=== PATIENT | female | born 1955 | race Caucasian/White ===

== ENCOUNTER 2020-01-18 21:23 | Inpatient (IN) | payer MEDICARE, OTHER ==
[2020-01-18] MEDS ORDERED: PANTOPRAZOLE 40 MG/10 ML VIAL IVP STA (21:41)
[2020-01-18] MEDS ORDERED: SODIUM CHLORIDE 0.9% 500 ML 500 ML IV STA (21:41)
[2020-01-18 21:49] LABS: Anisocytosis Slight; Basophils # (A) 0.1 k/uL (0-0.2); Basophils % (A) 1 %; Eosinophils # (A) 0.3 k/uL (0-0.7); Eosinophils % (A) 4 %; HGB 11.9 gm/dL (11.4-16.0); Hypochromasia Marked; Lymphocytes # (A) 1.2 k/uL (1.0-4.8); Lymphocytes % (A) 16 %; MCH 25.5 pg (25.0-35.0); MCHC 29.6 g/dL (31.0-37.0); MCV 85.9 fL (80.0-100.0); Mean Platelet Volume 8.6; Monocytes # (A) 0.5 k/uL (0-1.0); Monocytes % (A) 7 %; Neutrophils # (A) 5.1 k/uL (1.3-7.7); Neutrophils % (A) 69 %; Platelet Count 264 k/uL (150-450); RBC 4.66 m/uL (3.80-5.40); RDW 18.1 % (11.5-15.5); WBC 7.4 k/uL (3.8-10.6)
[2020-01-18 21:59] LABS: INR 1.3 (<1.2); Partial Thromboplastin Time 24.3 sec (22.0-30.0); Prothrombin Time 12.7 sec (9.0-12.0)
[2020-01-18 22:00] LABS: ALT 13 U/L (4-34); AST 29 U/L (14-36); African American GFR (CKD) >90 (>60 ml/min/1.73 sqM); Albumin 3.3 g/dL (3.5-5.0); Alkaline Phosphatase 91 U/L (38-126); Anion Gap 6 mmol/L; Blood Urea Nitrogen 18 mg/dL (7-17); Calcium 8.7 mg/dL (8.4-10.2); Carbon Dioxide 28 mmol/L (22-30); Chloride 104 mmol/L (98-107); Glucose 115 mg/dL (74-99); Lipase 189 U/L (23-300); Non-African American GFR(CKD) 89 (>60 ml/min/1.73 sqM); Potassium 3.8 mmol/L (3.5-5.1); Sodium 138 mmol/L (137-145); Total Bilirubin 2.1 mg/dL (0.2-1.3); Total Protein 6.4 g/dL (6.3-8.2)
--- NOTE | 2020-01-18 22:04 | ED ---
GI Bleed HPI - General Chief complaint: GI Bleed Stated complaint: GI Bleed Source: EMS Mode of arrival: EMS Limitations: no limitations - History of Present Illness Initial comments: Patient is a 64 year old female past history of atrial for ablation of presents to the emergency department with reported GI bleed. Patient states that around 7 PM tonight she began having sudden onset of bright red blood per rectum. It was so significant that she was unable to get up off the toilet. No history of similar in the past. Denies any abdominal pain or rectal pain. No recent fe vers or chills. She denies melanic stools. No nausea, vomiting or hematemesis. Denies history of previous peptic ulcer disease. Reports that she did have a colonoscopy greater than 5 years ago which was abnormal. She was told to follow up every several years to have repeat colonoscopy however she reports that she never followed up with care. She takes a baby aspirin for anticoagulation. She denies any chest pain or shortness of breath. No change in bladder habits. No other alleviating, Percepting or modifying factors - Related Data Home Medications Medication Instructions Recorded Confirmed Aspirin EC [Ecotrin Low Dose] 81 mg PO HS 01/18/20 01/18/20 Furosemide [Lasix] 60 mg PO DAILY 01/18/20 01/18/20 Metoprolol Succinate [Toprol XL] 25 mg PO W/SUPPER 01/18/20 01/18/20 lisinopriL 20 mg PO DAILY 01/18/20 01/18/20 Allergies Allergy/AdvReac Type Severity Reaction Status Date / Time codeine Allergy Rash/Hives Verified 01/18/20 23:04 erythromycin base Allergy Rash/Hives Verified 01/18/20 23:04 Sulfa (Sulfonamide Allergy Itching Verified 01/18/20 23:04 Antibiotics) Review of Systems ROS Statement: Those systems with pertinent positive or pertinent negative responses have been documented in the HPI. ROS Other: All systems not noted in ROS Statement are negative. Past Medical History Past Medical History: Atrial Fibrillation, Heart Failure History of Any Multi-Drug Resistant Organisms: None Reported Past Surgical History: Section Additional Past Surgical History / Comment(s): D&C Past Psychological History: No Psychological Hx Reported Smoking Status: Never smoker Past Alcohol Use History: None Reported Past Drug Use History: None Reported General Exam Limitations: no limitations Course Vital Signs 0801/18/20 01/18/20 21:24 22:48 23:25 Temperature 98.3 F 97.3 F L Pulse Rate 52 L 118 H 106 H Respiratory 18 18 20 Rate Blood Pressure 121/82 96/53 91/68 O2 Sat by Pulse 100 100 Oximetry 01/18/20 01/18/20 23:35 23:55 Temperature 98 F 98 F Pulse Rate 120 H 120 H Respiratory 18 18 Rate Blood Pressure 87/61 102/70 O2 Sat by Pulse 100 Oximetry - Reevaluation(s) Reevaluation #1: Spoke with Dr. Nieves who agreed to admit the patient the ICU 01/18/20 22:15 Reevaluation #2: The case with Dr. Del Castillo in regards to her active GI bleed 01/18/20 23:04 Reevaluation #3: 01/19/20 00:[address] Del Castillo in regards to the patient's heavy rectal bleeding. Dr. Del Castillo recommends blood transfusion as necessary to maintain stable blood pressure. Blood pressure improved after 1 unit PRBC. I did order a second unit at this time. Medical Decision Making - Medical Decision Making Upon arrival the patient is placed in room 3. A thorough history and physical exam was performed. I did perform a rectal exam on the patient which does demonstrate multiple nonthrombosed hemorrhoids. None or active bleeding. Rectal exam demonstrates positive rectal tone. The patient has a continuous stream of bright red blood coming from her rectum. Laboratory studies were conducted. It does demonstrate a hemoglobin of 11.9. I did recommend hospital admission for which patient did agree to. I discussed case with Dr. garvey who did agree to admit the patient to the ICU. I also discussed the case with Sudha from [facility]. I will trend the patient's troponins every 6 hours. Consult was placed for GI. Patient was given a dose of Protonix and will remain nothing by mouth. Patient agreed to the treatment plan and is awaiting transfer to the floor - Lab Data Result diagrams: 01/24/20 07:30 01/24/20 07:30 Lab Results 01/18/20 01/18/20 01/18/20 Range/Units 21:00 21:30 21:30 WBC 7.4 (3.8-10.6) k/uL RBC 4.66 (3.80-5.40) m/uL Hgb 11.9 (11.4-16.0) gm/dL Hct 40.0 (34.0-46.0) % MCV 85.9 (80.0-100.0) fL MCH 25.5 (25.0-35.0) pg MCHC 29.6 L (31.0-37.0) g/dL RDW 18.1 H (11.5-15.5) % Plt Count 264 (150-450) k/uL Neutrophils % 69 % Lymphocytes % 16 % Monocytes % 7 % Eosinophils % 4 % Basophils % 1 % Neutrophils # 5.1 (1.3-7.7) k/uL Lymphocytes # 1.2 (1.0-4.8) k/uL Monocytes # 0.5 (0-1.0) k/uL Eosinophils # 0.3 (0-0.7) k/uL Basophils # 0.1 (0-0.2) k/uL Hypochromasia Marked Anisocytosis Slight PT 12.7 H (9.0-12.0) sec INR 1.3 H (<1.2) APTT 24.3 (22.0-30.0) sec Sodium (137-145) mmol/L Potassium (3.5-5.1) mmol/L Chloride (98-107) mmol/L Carbon Dioxide (22-30) mmol/L Anion Gap mmol/L BUN (7-17) mg/dL Creatinine (0.52-1.04) mg/dL Est GFR (CKD-EPI)AfAm (>60 ml/min/1.73 sqM) Est GFR (CKD-EPI)NonAf (>60 ml/min/1.73 sqM) Glucose (74-99) mg/dL Plasma Lactic Acid Yang (0.7-2.0) mmol/L Calcium (8.4-10.2) mg/dL Magnesium (1.6-2.3) mg/dL Total Bilirubin (0.2-1.3) mg/dL AST (14-36) U/L ALT (4-34) U/L Alkaline Phosphatase (38-126) U/L Troponin I (0.000-0.034) ng/mL Total Protein (6.3-8.2) g/dL Albumin (3.5-5.0) g/dL Lipase (23-300) U/L Stool Occult Blood Positive H (Negative) Blood Type Blood Type Confirm Blood Type Recheck Bld Type Recheck Status Antibody Screen Crossmatch Spec Expiration Date 01/18/20 01/18/20 01/18/20 Range/Units 21:30 21:30 21:30 WBC (3.8-10.6) k/uL RBC (3.80-5.40) m/uL Hgb (11.4-16.0) gm/dL Hct (34.0-46.0) % MCV (80.0-100.0) fL MCH (25.0-35.0) pg MCHC (31.0-37.0) g/dL RDW (11.5-15.5) % Plt Count (150-450) k/uL Neutrophils % % Lymphocytes % % Monocytes % % Eosinophils % % Basophils % % Neutrophils # (1.3-7.7) k/uL Lymphocytes # (1.0-4.8) k/uL Monocytes # (0-1.0) k/uL Eosinophils # (0-0.7) k/uL Basophils # (0-0.2) k/uL Hypochromasia Anisocytosis PT (9.0-12.0) sec INR (<1.2) APTT (22.0-30.0) sec Sodium 138 (137-145) mmol/L Potassium 3.8 (3.5-5.1) mmol/L Chloride 104 (98-107) mmol/L Carbon Dioxide 28 (22-30) mmol/L Anion Gap 6 mmol/L BUN 18 H (7-17) mg/dL Creatinine 0.71 (0.52-1.04) mg/dL Est GFR (CKD-EPI)AfAm >90 (>60 ml/min/1.73 sqM) Est GFR (CKD-EPI)NonAf 89 (>60 ml/min/1.73 sqM) Glucose 115 H (74-99) mg/dL Plasma Lactic Acid Yang 1.6 (0.7-2.0) mmol/L Calcium 8.7 (8.4-10.2) mg/dL Magnesium 2.0 (1.6-2.3) mg/dL Total Bilirubin 2.1 H (0.2-1.3) mg/dL AST 29 (14-36) U/L ALT 13 (4-34) U/L Alkaline Phosphatase 91 (38-126) U/L Troponin I 0.025 (0.000-0.034) ng/mL Total Protein 6.4 (6.3-8.2) g/dL Albumin 3.3 L (3.5-5.0) g/dL Lipase 189 (23-300) U/L Stool Occult Blood (Negative) Blood Type Blood Type Confirm Blood Type Recheck Bld Type Recheck Status Antibody Screen Crossmatch Spec Expiration Date 01/18/20 01/18/20 Range/Units 21:30 22:20 WBC (3.8-10.6) k/uL RBC (3.80-5.40) m/uL Hgb (11.4-16.0) gm/dL Hct (34.0-46.0) % MCV (80.0-100.0) fL MCH (25.0-35.0) pg MCHC (31.0-37.0) g/dL RDW (11.5-15.5) % Plt Count (150-450) k/uL Neutrophils % % Lymphocytes % % Monocytes % % Eosinophils % % Basophils % % Neutrophils # (1.3-7.7) k/uL Lymphocytes # (1.0-4.8) k/uL Monocytes # (0-1.0) k/uL Eosinophils # (0-0.7) k/uL Basophils # (0-0.2) k/uL Hypochromasia Anisocytosis PT (9.0-12.0) sec INR (<1.2) APTT (22.0-30.0) sec Sodium (137-145) mmol/L Potassium (3.5-5.1) mmol/L Chloride (98-107) mmol/L Carbon Dioxide (22-30) mmol/L Anion Gap mmol/L BUN (7-17) mg/dL Creatinine (0.52-1.04) mg/dL Est GFR (CKD-EPI)AfAm (>60 ml/min/1.73 sqM) Est GFR (CKD-EPI)NonAf (>60 ml/min/1.73 sqM) Glucose (74-99) mg/dL Plasma Lactic Acid Yang (0.7-2.0) mmol/L Calcium (8.4-10.2) mg/dL Magnesium (1.6-2.3) mg/dL Total Bilirubin (0.2-1.3) mg/dL AST (14-36) U/L ALT (4-34) U/L Alkaline Phosphatase (38-126) U/L Troponin I (0.000-0.034) ng/mL Total Protein (6.3-8.2) g/dL Albumin (3.5-5.0) g/dL Lipase (23-300) U/L Stool Occult Blood (Negative) Blood Type A Positive Blood Type Confirm A Positive Blood Type Recheck No Previous Record Bld Type Recheck Status CABO Indicated Antibody Screen NEGATIVE Crossmatch See Detail Spec Expiration Date 01/21/20202329 - EKG Data EKG Comments: EKG demonstrates atrial fibrillation with a rate of 126. QRS 106. QTC of 498. PVCs present. No acute ST segment elevation or depression. Significant baseline artifact Critical Care Time Critical Care Time: 50 minutes for multiple re-evaluations, close monitoring of patients vitals, transfusion of 2 units PRBC when patients blood pressure dropped. I also discussed the patients care with multiple specialists. Disposition Clinical Impression: Hematochezia, Afib, Hypotension Disposition: ADMITTED IP TO THIS HOSP Condition: Serious Is patient prescribed a controlled substance at d/c from ED?: No Decision to Admit Reason: Admit from EC Decision Date: 01/18/20 Decision Time: 22:37
[2020-01-18] MEDS ORDERED: NALOXONE 0.4 MG/ML 1 ML VIAL IV PRN (22:25)
[2020-01-18] MEDS ORDERED: SODIUM CHLORIDE 0.9% 500 ML 500 ML IV ONE (23:06)
[2020-01-19 00:18] LABS: Glucose,Whole Blood 105 mg/dL (75-99)
[2020-01-19 02:22] LABS: Anisocytosis Slight; Basophils # (A) 0.1 k/uL (0-0.2); Basophils % (A) 1 %; Eosinophils # (A) 0.1 k/uL (0-0.7); Eosinophils % (A) 2 %; HCT 34.7 % (34.0-46.0); HGB 10.6 gm/dL (11.4-16.0); Hypochromasia Marked; Lymphocytes # (A) 0.8 k/uL (1.0-4.8); Lymphocytes % (A) 10 %; MCH 26.8 pg (25.0-35.0); MCHC 30.5 g/dL (31.0-37.0); MCV 87.8 fL (80.0-100.0); Mean Platelet Volume 8.8; Monocytes # (A) 0.4 k/uL (0-1.0); Monocytes % (A) 5 %; Neutrophils # (A) 6.5 k/uL (1.3-7.7); Neutrophils % (A) 80 %; Platelet Count 231 k/uL (150-450); Poikilocytosis Slight; RBC 3.95 m/uL (3.80-5.40); RDW 17.6 % (11.5-15.5); WBC 8.2 k/uL (3.8-10.6)
[2020-01-19] MEDS: SODIUM CHLORIDE 0.9% 1,000 ML IV SCH ×3 (03:30→23:14)
[2020-01-19 05:49] LABS: Anisocytosis Slight; HCT 32.6 % (34.0-46.0); HGB 10.1 gm/dL (11.4-16.0); Hypochromasia Marked; MCH 27.2 pg (25.0-35.0); MCV 87.8 fL (80.0-100.0); Mean Platelet Volume 8.6; Platelet Count 208 k/uL (150-450); Poikilocytosis Slight; RBC 3.72 m/uL (3.80-5.40); RDW 17.6 % (11.5-15.5)
[2020-01-19 06:06] LABS: African American GFR (CKD) >90 (>60 ml/min/1.73 sqM); Anion Gap 2 mmol/L; Blood Urea Nitrogen 19 mg/dL (7-17); Calcium 7.5 mg/dL (8.4-10.2); Carbon Dioxide 27 mmol/L (22-30); Chloride 109 mmol/L (98-107); Glucose 113 mg/dL (74-99); Non-African American GFR(CKD) >90 (>60 ml/min/1.73 sqM); Potassium 3.8 mmol/L (3.5-5.1); Sodium 138 mmol/L (137-145)
[2020-01-19] MEDS ORDERED: Potassium Replacement Protocol 1 EACH MISC MISCELLANE PRN (07:25)
[2020-01-19] MEDS ORDERED: SODIUM CHLORIDE 0.9% 1,000 ML IV ONE ×3 (08:49→23:13)
--- NOTE | 2020-01-19 08:58 | P.GSCN ---
History of Present Illness Consult date: 01/19/20 History of present illness: 64-year-old female was admitted to the emergency department with complaints of sudden onset blood per rectum. She states that she had a significant episode of bloody stool at home and became extremely concerned. She presented to the emergency Department soon after this episode. She denied any nausea or vomiting. She states that she has not had this type of symptoms previously. She did have multiple episodes of bleeding per rectum while in the emergency department. Apparently, according to nursing staff she needed to be cleaned up approximately 8 times. She was admitted to the ICU and did have 2 units of packed red blood cells given. Currently, her hemoglobin is just above 10. She states that she has had a colonoscopy in the past and this was over 5 years ago. At that time, she states that she was found to have a large polyp and was recommended close follow-up colonoscopy. She did not comply with this recommendation as she states that she lost her job and her insurance for a short period of time. Currently, her last bloody output was approximately 6 hours ago. She states that she is feeling some abdominal soreness but no significant pain. Systolic blood pressure is in the 70s and 80s with a MAP just around 60. Her previous abdominal surgery is a . Review of Systems All systems: negative Past Medical History Past Medical History: Atrial Fibrillation, Heart Failure History of Any Multi-Drug Resistant Organisms: None Reported Past Surgical History: Section Additional Past Surgical History / Comment(s): D&C Past Anesthesia/Blood Transfusion Reactions: No Reported Reaction Past Psychological History: No Psychological Hx Reported Smoking Status: Never smoker Past Alcohol Use History: None Reported Past Drug Use History: None Reported Medications and Allergies Home Medications Medication Instructions Recorded Confirmed Type Aspirin EC [Ecotrin Low Dose] 81 mg PO HS 01/18/20 01/18/20 History Furosemide [Lasix] 60 mg PO DAILY 01/18/20 01/18/20 History Metoprolol Succinate [Toprol XL] 25 mg PO W/SUPPER 01/18/20 01/18/20 History lisinopriL 20 mg PO DAILY 01/18/20 01/18/20 History Allergies Allergy/AdvReac Type Severity Reaction Status Date / Time codeine Allergy Rash/Hives Verified 01/18/20 23:04 erythromycin base Allergy Rash/Hives Verified 01/18/20 23:04 Sulfa (Sulfonamide Allergy Itching Verified 01/18/20 23:04 Antibiotics) Surgical - Exam Osteopathic Statement: *. No significant issues noted on an osteopathic structural exam other than those noted in the History and Physical/Consult. Vital Signs Temp Pulse Resp BP Pulse Ox 98.3 F 52 L 18 121/82 100 01/18/20 21:24 01/18/20 21:24 01/18/20 21:24 01/18/20 21:24 01/18/20 21:24 - General well nourished, no distress - Eyes PERRL - ENT normal mucosa, no hearing loss - Neck trachea midline - Respiratory normal respiratory effort - Abdomen Soft, nontender, mildly distended, no rebound, no guarding - Neurologic normal coordination, normal sensation - Psychiatric oriented to time, oriented to person, oriented to place Results - Labs 01/19/20 05:34 01/19/20 05:34 Abnormal Lab Results - Last 24 Hours (Table) 01/18/20 01/18/20 01/18/20 Range/Units 21:00 21:30 21:30 RBC (3.80-5.40) m/uL Hgb (11.4-16.0) gm/dL Hct (34.0-46.0) % MCHC 29.6 L (31.0-37.0) g/dL RDW 18.1 H (11.5-15.5) % Lymphocytes # (1.0-4.8) k/uL PT 12.7 H (9.0-12.0) sec INR 1.3 H (<1.2) Chloride (98-107) mmol/L BUN (7-17) mg/dL Glucose (74-99) mg/dL POC Glucose (mg/dL) (75-99) mg/dL Calcium (8.4-10.2) mg/dL Total Bilirubin (0.2-1.3) mg/dL Albumin (3.5-5.0) g/dL Stool Occult Blood Positive H (Negative) Crossmatch 01/18/20 01/18/20 01/19/20 Range/Units 21:30 21:30 00:17 RBC (3.80-5.40) m/uL Hgb (11.4-16.0) gm/dL Hct (34.0-46.0) % MCHC (31.0-37.0) g/dL RDW (11.5-15.5) % Lymphocytes # (1.0-4.8) k/uL PT (9.0-12.0) sec INR (<1.2) Chloride (98-107) mmol/L BUN 18 H (7-17) mg/dL Glucose 115 H (74-99) mg/dL POC Glucose (mg/dL) 105 H (75-99) mg/dL Calcium (8.4-10.2) mg/dL Total Bilirubin 2.1 H (0.2-1.3) mg/dL Albumin 3.3 L (3.5-5.0) g/dL Stool Occult Blood (Negative) Crossmatch See Detail 01/19/20 01/19/20 01/19/20 Range/Units 02:11 05:34 05:34 RBC 3.72 L (3.80-5.40) m/uL Hgb 10.6 L 10.1 L (11.4-16.0) gm/dL Hct 32.6 L (34.0-46.0) % MCHC 30.5 L (31.0-37.0) g/dL RDW 17.6 H 17.6 H (11.5-15.5) % Lymphocytes # 0.8 L (1.0-4.8) k/uL PT (9.0-12.0) sec INR (<1.2) Chloride 109 H (98-107) mmol/L BUN 19 H (7-17) mg/dL Glucose 113 H (74-99) mg/dL POC Glucose (mg/dL) (75-99) mg/dL Calcium 7.5 L (8.4-10.2) mg/dL Total Bilirubin (0.2-1.3) mg/dL Albumin (3.5-5.0) g/dL Stool Occult Blood (Negative) Crossmatch Diabetes panel 01/18/20 01/19/20 Range/Units 21:30 05:34 Sodium 138 138 (137-145) mmol/L Potassium 3.8 3.8 (3.5-5.1) mmol/L Chloride 104 109 H (98-107) mmol/L Carbon Dioxide 28 27 (22-30) mmol/L BUN 18 H 19 H (7-17) mg/dL Creatinine 0.71 0.59 (0.52-1.04) mg/dL Glucose 115 H 113 H (74-99) mg/dL Calcium 8.7 7.5 L (8.4-10.2) mg/dL AST 29 (14-36) U/L ALT 13 (4-34) U/L Alkaline Phosphatase 91 (38-126) U/L Total Protein 6.4 (6.3-8.2) g/dL Albumin 3.3 L (3.5-5.0) g/dL Calcium panel 01/18/20 01/19/20 Range/Units 21:30 05:34 Calcium 8.7 7.5 L (8.4-10.2) mg/dL Albumin 3.3 L (3.5-5.0) g/dL Pituitary panel 01/18/20 01/19/20 Range/Units 21:30 05:34 Sodium 138 138 (137-145) mmol/L Potassium 3.8 3.8 (3.5-5.1) mmol/L Chloride 104 109 H (98-107) mmol/L Carbon Dioxide 28 27 (22-30) mmol/L BUN 18 H 19 H (7-17) mg/dL Creatinine 0.71 0.59 (0.52-1.04) mg/dL Glucose 115 H 113 H (74-99) mg/dL Calcium 8.7 7.5 L (8.4-10.2) mg/dL Adrenal panel 01/18/20 01/19/20 Range/Units 21:30 05:34 Sodium 138 138 (137-145) mmol/L Potassium 3.8 3.8 (3.5-5.1) mmol/L Chloride 104 109 H (98-107) mmol/L Carbon Dioxide 28 27 (22-30) mmol/L BUN 18 H 19 H (7-17) mg/dL Creatinine 0.71 0.59 (0.52-1.04) mg/dL Glucose 115 H 113 H (74-99) mg/dL Calcium 8.7 7.5 L (8.4-10.2) mg/dL Total Bilirubin 2.1 H (0.2-1.3) mg/dL AST 29 (14-36) U/L ALT 13 (4-34) U/L Alkaline Phosphatase 91 (38-126) U/L Total Protein 6.4 (6.3-8.2) g/dL Albumin 3.3 L (3.5-5.0) g/dL Assessment and Plan Plan: 64-year-old female with GI bleed - Based on the patient's symptomatology, this does appear to be a lower GI bleed. Her hemoglobin is notably stable just above 10. We will continue to monitor with serial hemoglobins. Her last bloody bowel movement was approximately 6 hours ago. I would expect some additional bloody clots and fut ure bowel movements. GI consult is pending, will follow their recommendations on any decision on endoscopy. Continue supportive management and follow hemodynamics. Due to low MAP and current low systolic blood pressure, will bolus 1 L of fluid. Currently, there is no plan for acute surgical inte rvention. We'll continue to follow.
[2020-01-19] MEDS: PANTOPRAZOLE 40 MG/10 ML VIAL IVP SCH (09:52)
[2020-01-19] MEDS: POTASSIUM CHLORIDE 10 MEQ in WATER FOR INJECTION 1 100ML.BAG IVPB SCH ×2 (09:52→12:17)
--- NOTE | 2020-01-19 12:23 | P.CNPUL ---
History of Present Illness Consult date: 01/19/20 Chief complaint: GIB History of present illness: 64-year-old. Patient came into the hospital after she had a sudden onset bloody stool at home and she was very much concerned that the patient continued to have episodes of bloody stool throughout the night. She came into the emergency room and she continued to have GI bleeding. She had no abdominal pain or distention. No hematemesis. She is not taking any formal anticoagulants. She has chronic atrial fibrillation chronic lower extremity edema. She was admitted to the intensive care unit. She was resuscitated IV fluids. She already received a total of 2 L of IV fluids and 2 units of packed RBC and her current hemoglobin is at 10. She has had a previous colonoscopy was done 5 years ago and in outpatient surgical Center in [facility]. The results are not available yet. She was not told to have any diverticulosis or AV malformation. She was told to have colonic polyps. No 70 liver disease. No 70 peptic ulcer disease. She was slightly hypotensive today with a mean of 60 mmHg and she was given another liter of IV fluid bolus. GI is on the case in general surgeries on the case. The patient is currently being monitored intensively at the ICU. Review of Systems Constitutional: Denies chills, Denies fever Eyes: denies as per HPI, denies blurred vision, denies bulging eye, denies decreased vision, denies diplopia, denies discharge, denies dry eye, denies irritation, denies itching, denies pain, denies photophobia, denies loss of peripheral vision, denies loss of vision, denies tunnel vision/blind spots Ears: deny: decreased hearing, ear discharge, earache, tinnitus Ears, nose, mouth and throat: Denies headache, Denies sore throat Breasts: absent: as per HPI, change in shape, gynecomastia, masses, nipple discharge, pain, skin changes, swelling Cardiovascular: Reports as per HPI Respiratory: Reports as per HPI Gastrointestinal: Reports BRBPR Genitourinary: Reports as per HPI Menstruation: Reports as per HPI Musculoskeletal: Reports as per HPI Musculoskeletal: absent: ankle pain, ankle stiffness, ankle swelling Integumentary: Reports as per HPI Neurological: Reports as per HPI Psychiatric: Reports as per HPI Endocrine: Reports as per HPI Hematologic/Lymphatic: Reports as per HPI Allergic/Immunologic: Reports as per HPI Past Medical History Past Medical History: Atrial Fibrillation, Heart Failure, GI Bleed History of Any Multi-Drug Resistant Organisms: None Reported Past Surgical History: Section Additional Past Surgical History / Comment(s): D&C Past Anesthesia/Blood Transfusion Reactions: No Reported Reaction Past Psychological History: No Psychological Hx Reported Smoking Status: Never smoker Past Alcohol Use History: None Reported Past Drug Use History: None Reported Medications and Allergies Home Medications Medication Instructions Recorded Confirmed Type Aspirin EC [Ecotrin Low Dose] 81 mg PO HS 01/18/20 01/18/20 History Furosemide [Lasix] 60 mg PO DAILY 01/18/20 01/18/20 History Metoprolol Succinate [Toprol XL] 25 mg PO W/SUPPER 01/18/20 01/18/20 History lisinopriL 20 mg PO DAILY 01/18/20 01/18/20 History Allergies Allergy/AdvReac Type Severity Reaction Status Date / Time codeine Allergy Rash/Hives Verified 01/18/20 23:04 erythromycin base Allergy Rash/Hives Verified 01/18/20 23:04 Sulfa (Sulfonamide Allergy Itching Verified 01/18/20 23:04 Antibiotics) Physical Exam Vitals: Vital Signs Temp Pulse Resp BP Pulse Ox 01/19/20 08:00 99.1 F 129 H 18 89/78 98 01/19/20 07:45 113 H 20 98/60 96 01/19/20 07:30 114 H 20 89/50 98 01/19/20 07:15 109 H 15 87/61 98 01/19/20 07:00 115 H 20 90/67 96 01/19/20 06:45 122 H 28 H 107/70 83 L 01/19/20 06:30 109 H 28 H 101/77 98 01/19/20 06:15 115 H 17 75/48 97 01/19/20 06:00 100 21 89/53 97 01/19/20 05:45 105 H 23 96/64 99 01/19/20 05:30 98 18 95/58 96 01/19/20 05:15 105 H 21 83/56 99 01/19/20 05:00 100 20 72/60 97 01/19/20 04:45 110 H 17 80/58 99 01/19/20 04:30 99 17 71/51 97 01/19/20 04:15 103 H 21 89/73 99 01/19/20 04:00 98.3 F 96 20 92/58 97 01/19/20 03:45 104 H 20 82/70 97 01/19/20 03:30 99 20 79/58 98 01/19/20 03:15 108 H 26 H 104/58 100 01/19/20 03:00 90 21 93/52 98 01/19/20 02:45 103 H 17 91/46 100 01/19/20 02:32 98.1 F 104 H 13 72/60 100 01/19/20 02:30 96 20 96/52 98 01/19/20 02:15 98 18 85/69 99 01/19/20 02:00 90 30 H 68/41 97 01/19/20 01:45 103 H 32 H 80/47 98 01/19/20 01:30 103 H 22 91/61 100 01/19/20 01:27 98.1 F 105 H 24 90/61 100 01/19/20 01:15 98 18 91/52 98 01/19/20 01:00 108 H 26 H 108/62 100 01/19/20 00:55 98.5 F 96 25 H 91/52 100 01/19/20 00:50 98.6 F 106 H 20 108/62 100 01/19/20 00:47 98.4 F 107 H 14 113/90 93 L 01/19/20 00:45 114 H 18 92/63 97 01/19/20 00:30 98.3 F 122 H 12 91/70 89 L 01/18/20 23:55 98 F 120 H 18 102/70 01/18/20 23:35 98 F 120 H 18 87/61 100 01/18/20 23:25 97.3 F L 106 H 20 91/68 01/18/20 22:48 118 H 18 96/53 100 01/18/20 21:24 98.3 F 52 L 18 121/82 100 Intake and Output 01/18/20 01/19/20 01/19/20 22:59 06:59 14:59 Intake Total 1220 250 Output Total 65 50 Balance 1155 200 Intake: IV 600 250 Sodium Chloride 0.9% 1, 600 250 000 ml @ 100 mls/hr IV . Q10H [facility] Rx#:[id number] Blood Product 620 Rc As-1 Unit 310 [id number] As-3 Unit 310 [id number] Output: Urine 65 50 Other: Voiding Method Indwelling Catheter Indwelling Catheter Weight 107.955 kg 111.4 kg The patient appeared well nourished and normally developed. Vital signs as documented. Head exam is unremarkable. No scleral icterus or corneal arcus noted. Neck is without jugular venous distension, thyromegaly, or carotid bruits. Carotid upstrokes are brisk bilaterally. Lungs are clear to auscultation and percussion. Cardiac exam reveals the PMI to be normally sized and situated. Rhythm is irregular and consistent with atrial fibrillation. The. First and second heart sounds normal. No murmurs, rubs or gallops. Abdominal exam reveals normal bowel sounds, no masses, no organomegaly and no aortic enlargement. Ext remities are nonedematous and both femoral and pedal pulses are normal.Examination of the skin revealed no evidence of significant rashes, suspicious appearing nevi or other concerning lesions.Neurologically, the patient is awake and alert and the patient does not have any focal neurological deficit. Cranial nerves are essentially intact. Results - Laboratory Findings CBC and BMP: 01/19/20 05:34 01/19/20 05:34 PT/INR, D-dimer PT 12.7 sec (9.0-12.0) H 01/18/20 21:30 INR 1.3 (<1.2) H 01/18/20 21:30 Abnormal lab findings: Abnormal Labs 01/18/20 01/18/20 01/18/20 21:00 21:30 21:30 RBC Hgb Hct MCHC 29.6 L RDW 18.1 H Lymphocytes # PT 12.7 H INR 1.3 H Chloride BUN Glucose POC Glucose (mg/dL) Calcium Total Bilirubin Albumin Stool Occult Blood Positive H Crossmatch 01/18/20 01/18/20 01/19/20 21:30 21:30 00:17 RBC Hgb Hct MCHC RDW Lymphocytes # PT INR Chloride BUN 18 H Glucose 115 H POC Glucose (mg/dL) 105 H Calcium Total Bilirubin 2.1 H Albumin 3.3 L Stool Occult Blood Crossmatch See Detail 01/19/20 01/19/20 01/19/20 02:11 05:34 05:34 RBC 3.72 L Hgb 10.6 L 10.1 L Hct 32.6 L MCHC 30.5 L RDW 17.6 H 17.6 H Lymphocytes # 0.8 L PT INR Chloride 109 H BUN 19 H Glucose 113 H POC Glucose (mg/dL) Calcium 7.5 L Total Bilirubin Albumin Stool Occult Blood Crossmatch - Diagnostic Findings Chest x-ray: image reviewed Assessment and Plan Plan: 1 GI bleed likely of a lower GI source. Consider diverticular bleed. Consider AV malformation. The patient is well assessed his IV fluids and she received a total of 2 units of packed RBC. General surgeries on the case. Gastro is also on the case. 2 hypotension secondary to above, improved with fluids and blood products. Currently normotensive 3 chronic atrial fibrillation, on no anticoagulants 4 chronic swelling of the lower extremities bilaterally Plan Keep the patient nothing by mouth IV fluids at the rate of 100 mL an hour IV Protonix Monitor hemoglobin Blood products if needed for hemoglobin less than 8 General surgeries on the case. Gastro to [place] is on the case. Keep the patient ICU for further monitoring. The patient has not had any further episodes of bleeding since 3 AM this morning. SCDs to the lower extremities bilaterally. Keep the aspirin on hold.
[2020-01-19 12:30] LABS: Anisocytosis Slight; HCT 31.3 % (34.0-46.0); HGB 10.1 gm/dL (11.4-16.0); Hypochromasia Marked; MCH 28.3 pg (25.0-35.0); MCHC 32.2 g/dL (31.0-37.0); Mean Platelet Volume 8.7; Platelet Count 218 k/uL (150-450); Poikilocytosis Slight; RBC 3.55 m/uL (3.80-5.40); RDW 17.8 % (11.5-15.5); WBC 8.6 k/uL (3.8-10.6)
--- NOTE | 2020-01-19 13:18 | P.HPIM ---
History of Present Illness 64-year-old pleasant female came in with the complaints of bright red blood per rectum multiple episodes. Patient's immobility and was 17. Present hemoglobin is 10 patient received 2 units of PRBC. Patient had a colonoscopy 5 years ago results of which are not available at this time. Patient denied any significant abdominal pain. Patient blood pressure is low patient is on IV fluids. Patient does have bilateral pedal edema along with an ulcer in the right leg with some redness in that area although doesn't appear to be cellulitic. Patient does have history of atrial fibrillation not on anticoagulation patient is on baby aspirin. Patient is also on Lasix. Although patient doesn't know if she has heart failure. No echo is available echo was ordered. Patient clinically is not in heart failure exacerbation at this time. Review of Systems REVIEW OF SYSTEMS: CONSTITUTIONAL: No fever, no malaise, no fatigue. HEENT: No recent visual problems or hearing problems. Denied any sore throat. CARDIOVASCULAR: No chest pain, orthopnea, PND, no palpitations, no syncope. PULMONARY: No shortness of breath, no cough, no hemoptysis. GASTROINTESTINAL: As mentioned in HPI NEUROLOGICAL: No headaches, no weakness, no numbness. HEMATOLOGICAL: Denies any bleeding or petechiae. GENITOURINARY: Denies any burning micturition, frequency, or urgency. MUSCULOSKELETAL/RHEUMATOLOGICAL: Denies any joint pain, swelling, or any muscle pain. ENDOCRINE: Denies any polyuria or polydipsia. The rest of the 14-point review of systems is negative. Past Medical History Past Medical History: Atrial Fibrillation, Heart Failure, GI Bleed History of Any Multi-Drug Resistant Organisms: None Reported Past Surgical History: Section Additional Past Surgical History / Comment(s): D&C Past Anesthesia/Blood Transfusion Reactions: No Reported Reaction Past Psychological History: No Psychological Hx Reported Smoking Status: Never smoker Past Alcohol Use History: None Reported Past Drug Use History: None Reported Medications and Allergies Home Medications Medication Instructions Recorded Confirmed Type Aspirin EC [Ecotrin Low Dose] 81 mg PO HS 01/18/20 01/18/20 History Furosemide [Lasix] 60 mg PO DAILY 01/18/20 01/18/20 History Metoprolol Succinate [Toprol XL] 25 mg PO W/SUPPER 01/18/20 01/18/20 History lisinopriL 20 mg PO DAILY 01/18/20 01/18/20 History Allergies Allergy/AdvReac Type Severity Reaction Status Date / Time codeine Allergy Rash/Hives Verified 01/18/20 23:04 erythromycin base Allergy Rash/Hives Verified 01/18/20 23:04 Sulfa (Sulfonamide Allergy Itching Verified 01/18/20 23:04 Antibiotics) Physical Exam Vitals: Vital Signs Temp Pulse Resp BP Pulse Ox 01/19/20 12:00 97.7 F 87 17 104/53 98 01/19/20 11:49 18 01/19/20 11:45 89 18 100/58 97 01/19/20 11:30 86 21 99/58 97 01/19/20 11:15 87 22 95/65 97 01/19/20 11:00 87 26 H 92/60 97 01/19/20 10:45 100 26 H 109/84 98 01/19/20 10:30 105 H 19 107/63 83 L 01/19/20 10:15 111 H 24 111/55 96 01/19/20 10:00 106 H 26 H 120/54 98 01/19/20 09:45 112 H 29 H 91/58 97 01/19/20 09:30 110 H 20 108/52 98 01/19/20 09:15 103 H 20 116/91 95 01/19/20 09:00 104 H 33 H 98/38 94 L 01/19/20 08:45 97 13 71/49 98 01/19/20 08:30 101 H 14 81/52 96 01/19/20 08:15 96 91/57 98 01/19/20 08:00 99.1 F 129 H 18 89/78 98 01/19/20 07:45 113 H 20 98/60 96 01/19/20 07:30 114 H 20 89/50 98 01/19/20 07:15 109 H 15 87/61 98 01/19/20 07:00 115 H 20 90/67 96 01/19/20 06:45 122 H 28 H 107/70 83 L 01/19/20 06:30 109 H 28 H 101/77 98 01/19/20 06:15 115 H 17 75/48 97 01/19/20 06:00 100 21 89/53 97 01/19/20 05:45 105 H 23 96/64 99 08/08/20 05:30 98 18 95/58 96 01/19/20 05:15 105 H 21 83/56 99 01/19/20 05:00 100 20 72/60 97 01/19/20 04:45 110 H 17 80/58 99 01/19/20 04:30 99 17 71/51 97 01/19/20 04:15 103 H 21 89/73 99 01/19/20 04:00 98.3 F 96 20 92/58 97 01/19/20 03:45 104 H 20 82/70 97 01/19/20 03:30 99 20 79/58 98 01/19/20 03:15 108 H 26 H 104/58 100 01/19/20 03:00 90 21 93/52 98 01/19/20 02:45 103 H 17 91/46 100 01/19/20 02:32 98.1 F 104 H 13 72/60 100 01/19/20 02:30 96 20 96/52 98 01/19/20 02:15 98 18 85/69 99 01/19/20 02:00 90 30 H 68/41 97 01/19/20 01:45 103 H 32 H 80/47 98 01/19/20 01:30 103 H 22 91/61 100 01/19/20 01:27 98.1 F 105 H 24 90/61 100 01/19/20 01:15 98 18 91/52 98 01/19/20 01:00 108 H 26 H 108/62 100 01/19/20 00:55 98.5 F 96 25 H 91/52 100 01/19/20 00:50 98.6 F 106 H 20 108/62 100 01/19/20 00:47 98.4 F 107 H 14 113/90 93 L 01/19/20 00:45 114 H 18 92/63 97 01/19/20 00:30 98.3 F 122 H 12 91/70 89 L 01/18/20 23:55 98 F 120 H 18 102/70 01/18/20 23:35 98 F 120 H 18 87/61 100 01/18/20 23:25 97.3 F L 106 H 20 91/68 01/18/20 22:48 118 H 18 96/53 100 01/18/20 21:24 98.3 F 52 L 18 121/82 100 Intake and Output 0801/19/20 01/19/20 22:59 06:59 14:59 Intake Total 1220 1750 Output Total 65 203 Balance 1155 1547 Intake: IV 600 1750 Potassium Chloride 10 meq 100 In Water For Injection 1 100ml.bag @ 100 mls/hr IVPB Q1H [facility] Rx#: [id number] Sodium Chloride 0.9% 1, 600 1650 000 ml @ 100 mls/hr IV . Q10H [facility] Rx#:[id number] Blood Product 620 Rc As-1 Unit 310 [id number] Rc As-3 Unit 310 [id number] Output: Urine 65 203 Other: Voiding Method Indwelling Catheter Indwelling Catheter Weight 107.955 kg 111.4 kg PHYSICAL EXAMINATION: GENERAL: The patient is alert and oriented x3, not in any acute distress. Well developed, well nourished. HEENT: Pupils are round and equally reacting to light. EOMI. No scleral icterus. No conjunctival pallor. Normocephalic, atraumatic. No pharyngeal erythema. No thyromegaly. CARDIOVASCULAR: S1 and S2 present. No murmurs, rubs, or gallops. PULMONARY: Chest is clear to auscultation, no wheezing or crackles. ABDOMEN: Soft, nontender, nondistended, normoactive bowel sounds. No palpable organomegaly. MUSCULOSKELETAL: No joint swelling or deformity. EXTREMITIES: No cyanosis, clubbing, bilateral pedal edema significant in the right leg with the a stage II ulcer in the midshin area NEUROLOGICAL: Gross neurological examination did not reveal any focal deficits. SKIN: No rashes. Results CBC & Chem 7: 01/19/20 12:15 01/19/20 05:34 Labs: Abnormal Lab Results - Last 24 Hours (Table) 01/18/20 01/18/20 01/18/20 Range/Units 21:00 21:30 21:30 RBC (3.80-5.40) m/uL Hgb (11.4-16.0) gm/dL Hct (34.0-46.0) % MCHC 29.6 L (31.0-37.0) g/dL RDW 18.1 H (11.5-15.5) % Lymphocytes # (1.0-4.8) k/uL PT 12.7 H (9.0-12.0) sec INR 1.3 H (<1.2) Chloride (98-107) mmol/L BUN (7-17) mg/dL Glucose (74-99) mg/dL POC Glucose (mg/dL) (75-99) mg/dL Calcium (8.4-10.2) mg/dL Total Bilirubin (0.2-1.3) mg/dL Albumin (3.5-5.0) g/dL Stool Occult Blood Positive H (Negative) Crossmatch 01/18/20 01/18/20 01/19/20 Range/Units 21:30 21:30 00:17 RBC (3.80-5.40) m/uL Hgb (11.4-16.0) gm/dL Hct (34.0-46.0) % MCHC (31.0-37.0) g/dL RDW (11.5-15.5) % Lymphocytes # (1.0-4.8) k/uL PT (9.0-12.0) sec INR (<1.2) Chloride (98-107) mmol/L BUN 18 H (7-17) mg/dL Glucose 115 H (74-99) mg/dL POC Glucose (mg/dL) 105 H (75-99) mg/dL Calcium (8.4-10.2) mg/dL Total Bilirubin 2.1 H (0.2-1.3) mg/dL Albumin 3.3 L (3.5-5.0) g/dL Stool Occult Blood (Negative) Crossmatch See Detail 01/19/20 01/19/20 01/19/20 Range/Units 02:11 05:34 05:34 RBC 3.72 L (3.80-5.40) m/uL Hgb 10.6 L 10.1 L (11.4-16.0) gm/dL Hct 32.6 L (34.0-46.0) % MCHC 30.5 L (31.0-37.0) g/dL RDW 17.6 H 17.6 H (11.5-15.5) % Lymphocytes # 0.8 L (1.0-4.8) k/uL PT (9.0-12.0) sec INR (<1.2) Chloride 109 H (98-107) mmol/L BUN 19 H (7-17) mg/dL Glucose 113 H (74-99) mg/dL POC Glucose (mg/dL) (75-99) mg/dL Calcium 7.5 L (8.4-10.2) mg/dL Total Bilirubin (0.2-1.3) mg/dL Albumin (3.5-5.0) g/dL Stool Occult Blood (Negative) Crossmatch 01/19/20 Range/Units 12:15 RBC 3.55 L (3.80-5.40) m/uL Hgb 10.1 L (11.4-16.0) gm/dL Hct 31.3 L (34.0-46.0) % MCHC (31.0-37.0) g/dL RDW 17.8 H (11.5-15.5) % Lymphocytes # (1.0-4.8) k/uL PT (9.0-12.0) sec INR (<1.2) Chloride (98-107) mmol/L BUN (7-17) mg/dL Glucose (74-99) mg/dL POC Glucose (mg/dL) (75-99) mg/dL Calcium (8.4-10.2) mg/dL Total Bilirubin (0.2-1.3) mg/dL Albumin (3.5-5.0) g/dL Stool Occult Blood (Negative) Crossmatch Thrombosis Risk Factor Assmnt - Choose All That Apply Each Factor Represents 1 point: Heart failure (<1month), Obesity (BMI >25) Each Risk Factor Represents 2 Points: Age 61-74 years Thrombosis Risk Factor Assessment Total Risk Factor Score: 4 Thrombosis Risk Factor Assessment Level: Moderate Risk Assessment and Plan Plan: -Possibly acute lower GI bleed possibly of diverticulosis or AV malformation contributed to that patient will need colonoscopy gastric artery was consulted. Although patient will not need every 6 hourly hemoglobin if she has of the amount of blood in the stool then we'll do a hemoglobin or else we will recheck the hemoglobin tomorrow. Patient is status post 2 units of PRBC transfusion and patient is on IV fluids at this time - hypotension secondary to acute GI bleed and if his medications will be held -hypertension: Because of hypotension I'm holding off on antidepressant medicat ions -Chronic A. fib not on any anti-correlation presently not a candidate for anticoagulation patient will be resumed on rate control medications whenever her blood pressure can tolerate -Chronic venous insufficiency and chronic leg swelling with an ulcer local wound care.
[2020-01-19] MEDS ORDERED: METOPROLOL SUCCINATE (ER) 25 MG TAB.ER.24H PO SCH (17:30)
--- NOTE | 2020-01-19 21:42 | P.CONS ---
History of Present Illness - Reason for Consult Consult date: 01/19/20 Blood per rectum Requesting physician: Nikki Stephenson - Chief Complaint Blood per rectum - History of Present Illness 64-year-old female with a medical history significant for congestive heart failure, atrial fibrillation and colon polyps who presented to the hospital with complaints of blood per rectum. The patient's reports approximate 10 painless bloody bowel movements. No prior history of GI bleeding. Last colonoscopy approximately 5 years ago and significant for polypectomy at outside hospital. She does report some back pain the day before developing symptoms. No nausea or vomiting reported. She denies any NSAID use. No history of peptic ulcer disea se or prior upper GI bleed or EGD. No NSAID use. On presentation to the hospital patient's hemoglobin 11.9 subsequently 10.1 today after 2 units of PRBCs given for symptomatic anemia as the patient was hypotensive and tachycardic in the emergency department. INR 1.3. With a total bilirubin 2.1, alkaline phosphatase 97, AST 29 and ALT 13. Review of Systems REVIEW OF SYSTEMS: CONSTITUTIONAL: Denies any fevers, chills, weight change or fatigue. CARDIOVASCULAR: Denies any chest pain, palpitations high or low blood pressures, known history of atrial fibrillation and was hypotensive in the emergency department. RESPIRATORY: Denies any shortness of breath, hemoptysis or cough. GENITOURINARY: No dysuria or hematuria. MUSCULOSKELETAL: No weakness reported. SKIN: Denies any new rashes or lesions, jaundice or pallor. PSYCHIATRIC: Denies any depression or anxiety. NEUROLOGY: Denies headache, denies any new focal deficits. EARS/NOSE/THROAT: No recent hearing change, congestion, nasal discharge or sore throat. EYES: No pain in eyes, discharge or change in vision. GASTROINTESTINAL: As per HPI. Past Medical History Past Medical History: Atrial Fibrillation, Heart Failure, GI Bleed History of Any Multi-Drug Resistant Organisms: None Reported Past Surgical History: Section Additional Past Surgical History / Comment(s): D&C Past Anesthesia/Blood Transfusion Reactions: No Reported Reaction Past Psychological History: No Psychological Hx Reported Smoking Status: Never smoker Past Alcohol Use History: None Reported Past Drug Use History: None Reported Additional History: Family history: Reviewed with the patient noncontributory to current medical presentation. Medications and Allergies Home Medications Medication Instructions Recorded Confirmed Type Aspirin EC [Ecotrin Low Dose] 81 mg PO HS 01/18/20 01/18/20 History Furosemide [Lasix] 60 mg PO DAILY 01/18/20 01/18/20 History Metoprolol Succinate [Toprol XL] 25 mg PO W/SUPPER 01/18/20 01/18/20 History lisinopriL 20 mg PO DAILY 01/18/20 01/18/20 History Allergies Allergy/AdvReac Type Severity Reaction Status Date / Time codeine Allergy Rash/Hives Verified 01/18/20 23:04 erythromycin base Allergy Rash/Hives Verified 01/18/20 23:04 Sulfa (Sulfonamide Allergy Itching Verified 01/18/20 23:04 Antibiotics) Physical Exam Vitals: Vital Signs Temp Pulse Resp BP Pulse Ox 01/19/20 14:00 92 17 107/52 98 01/19/20 13:30 111 H 14 93/46 94 L 01/19/20 13:00 108 H 20 116/41 97 01/19/20 12:30 102 H 30 H 102/53 98 01/19/20 12:00 97.7 F 87 17 104/53 98 01/19/20 11:49 18 01/19/20 11:45 89 18 100/58 97 01/19/20 11:30 86 21 99/58 97 01/19/20 11:15 87 22 95/65 97 01/19/20 11:00 87 26 H 92/60 97 01/19/20 10:45 100 26 H 109/84 98 01/19/20 10:30 105 H 19 107/63 83 L 01/19/20 10:15 111 H 24 111/55 96 01/19/20 10:00 106 H 26 H 120/54 98 01/19/20 09:45 112 H 29 H 91/58 97 01/19/20 09:30 110 H 20 108/52 98 01/19/20 09:15 103 H 20 116/91 95 01/19/20 09:00 104 H 33 H 98/38 94 L 01/19/20 08:45 97 13 71/49 98 01/19/20 08:30 101 H 14 81/52 96 01/19/20 08:15 96 91/57 98 01/19/20 08:00 99.1 F 129 H 18 89/78 98 01/19/20 07:45 113 H 20 98/60 96 01/19/20 07:30 114 H 20 89/50 98 01/19/20 07:15 109 H 15 87/61 98 01/19/20 07:00 115 H 20 90/67 96 01/19/20 06:45 122 H 28 H 107/70 83 L 01/19/20 06:30 109 H 28 H 101/77 98 01/19/20 06:15 115 H 17 75/48 97 01/19/20 06:00 100 21 89/53 97 01/19/20 05:45 105 H 23 96/64 99 01/19/20 05:30 98 18 95/58 96 01/19/20 05:15 105 H 21 83/56 99 01/19/20 05:00 100 20 72/60 97 01/19/20 04:45 110 H 17 80/58 99 01/19/20 04:30 99 17 71/51 97 01/19/20 04:15 103 H 21 89/73 99 01/19/20 04:00 98.3 F 96 20 92/58 97 01/19/20 03:45 104 H 20 82/70 97 01/19/20 03:30 99 20 79/58 98 01/19/20 03:15 108 H 26 H 104/58 100 01/19/20 03:00 90 21 93/52 98 01/19/20 02:45 103 H 17 91/46 100 01/19/20 02:32 98.1 F 104 H 13 72/60 100 01/19/20 02:30 96 20 96/52 98 01/19/20 02:15 98 18 85/69 99 01/19/20 02:00 90 30 H 68/41 97 01/19/20 01:45 103 H 32 H 80/47 98 01/19/20 01:30 103 H 22 91/61 100 01/19/20 01:27 98.1 F 105 H 24 90/61 100 01/19/20 01:15 98 18 91/52 98 01/19/20 01:00 108 H 26 H 108/62 100 01/19/20 00:55 98.5 F 96 25 H 91/52 100 01/19/20 00:50 98.6 F 106 H 20 108/62 100 01/19/20 00:47 98.4 F 107 H 14 113/90 93 L 01/19/20 00:45 114 H 18 92/63 97 01/19/20 00:30 98.3 F 122 H 12 91/70 89 L 01/18/20 23:55 98 F 120 H 18 102/70 01/18/20 23:35 98 F 120 H 18 87/61 100 01/18/20 23:25 97.3 F L 106 H 20 91/68 01/18/20 22:48 118 H 18 96/53 100 01/18/20 21:24 98.3 F 52 L 18 121/82 100 Intake and Output 01/18/20 01/19/20 01/19/20 22:59 06:59 14:59 Intake Total 1220 2050 Output Total 65 253 Balance 1155 1797 Intake: IV 600 2050 Potassium Chloride 10 meq 200 In Water For Injection 1 100ml.bag @ 100 mls/hr IVPB Q1H [facility] Rx#: [id number] Sodium Chloride 0.9% 1, 600 1850 000 ml @ 100 mls/hr IV . Q10H [facility] Rx#:[id number] Blood Product 620 Rc As-1 Unit 310 [id number] Rc As-3 Unit 310 [id number] Output: Urine 65 253 Other: Voiding Method Indwelling Catheter Indwelling Catheter Weight 107.955 kg 111.4 kg On physical examination, patient appears comfortable in no apparent distress. HEAD: Normocephalic, atraumatic. EYES: No scleral icterus. No conjunctival injection. MOUTH: No lesions, tongue midline. NECK: Trachea midline, no gross abnormalities. CHEST: Clear to auscultation with no wheezing or rhonchi appreciated. HEART: S1-S2 appreciated. ABDOMEN: Soft, obese. Bowel sounds are positive. No organomegaly. No guarding or rigidity. EXTREMITIES: No pedal edema. SKIN: No rashes, no jaundice. NEUROLOGIC: Alert and oriented x3. No focal deficits. Results CBC & Chem 7: 01/19/20 12:15 01/19/20 05:34 Labs: Abnormal Lab Results - Last 24 Hours (Table) 01/18/20 01/18/20 01/18/20 Range/Units 21:00 21:30 21:30 RBC (3.80-5.40) m/uL Hgb (11.4-16.0) gm/dL Hct (34.0-46.0) % MCHC 29.6 L (31.0-37.0) g/dL RDW 18.1 H (11.5-15.5) % Lymphocytes # (1.0-4.8) k/uL PT 12.7 H (9.0-12.0) sec INR 1.3 H (<1.2) Chloride (98-107) mmol/L BUN (7-17) mg/dL Glucose (74-99) mg/dL POC Glucose (mg/dL) (75-99) mg/dL Calcium (8.4-10.2) mg/dL Total Bilirubin (0.2-1.3) mg/dL Albumin (3.5-5.0) g/dL Stool Occult Blood Positive H (Negative) Crossmatch 01/18/20 01/18/20 01/19/20 Range/Units 21:30 21:30 00:17 RBC (3.80-5.40) m/uL Hgb (11.4-16.0) gm/dL Hct (34.0-46.0) % MCHC (31.0-37.0) g/dL RDW (11.5-15.5) % Lymphocytes # (1.0-4.8) k/uL PT (9.0-12.0) sec INR (<1.2) Chloride (98-107) mmol/L BUN 18 H (7-17) mg/dL Glucose 115 H (74-99) mg/dL POC Glucose (mg/dL) 105 H (75-99) mg/dL Calcium (8.4-10.2) mg/dL Total Bilirubin 2.1 H (0.2-1.3) mg/dL Albumin 3.3 L (3.5-5.0) g/dL Stool Occult Blood (Negative) Crossmatch See Detail 01/19/20 01/19/20 01/19/20 Range/Units 02:11 05:34 05:34 RBC 3.72 L (3.80-5.40) m/uL Hgb 10.6 L 10.1 L (11.4-16.0) gm/dL Hct 32.6 L (34.0-46.0) % MCHC 30.5 L (31.0-37.0) g/dL RDW 17.6 H 17.6 H (11.5-15.5) % Lymphocytes # 0.8 L (1.0-4.8) k/uL PT (9.0-12.0) sec INR (<1.2) Chloride 109 H (98-107) mmol/L BUN 19 H (7-17) mg/dL Glucose 113 H (74-99) mg/dL POC Glucose (mg/dL) (75-99) mg/dL Calcium 7.5 L (8.4-10.2) mg/dL Total Bilirubin (0.2-1.3) mg/dL Albumin (3.5-5.0) g/dL Stool Occult Blood (Negative) Crossmatch 01/19/20 Range/Units 12:15 RBC 3.55 L (3.80-5.40) m/uL Hgb 10.1 L (11.4-16.0) gm/dL Hct 31.3 L (34.0-46.0) % MCHC (31.0-37.0) g/dL RDW 17.8 H (11.5-15.5) % Lymphocytes # (1.0-4.8) k/uL PT (9.0-12.0) sec INR (<1.2) Chloride (98-107) mmol/L BUN (7-17) mg/dL Glucose (74-99) mg/dL POC Glucose (mg/dL) (75-99) mg/dL Calcium (8.4-10.2) mg/dL Total Bilirubin (0.2-1.3) mg/dL Albumin (3.5-5.0) g/dL Stool Occult Blood (Negative) Crossmatch Assessment and Plan (1) Hematochezia Narrative/Plan: 64-year-old female who presented to the emergency department with multiple episodes of painless bright red blood per rectum with associated fall in hemoglobin currently at 10.1 status post 2 units of blood cells. Last colon oscopy 5 years ago significant for polypectomy per report from the patient. She denies any history of GI bleed, peptic ulcer disease, NSAID use, or prior upper endoscopy. Unknown etiology with suspicion for diverticular bleed with differential including ischemic colitis, AVM, peptic ulcer disease or other etiology. Current Visit: Yes Status: Acute Code(s): K92.1 - MELENA SNOMED Code(s): 862715234 (2) Anemia associated with acute blood loss Current Visit: Yes Status: Acute Code(s): D62 - ACUTE POSTHEMORRHAGIC ANEMIA SNOMED Code(s): 512395525 Plan: Supportive care Clear liquid diet Continue to monitor hemoglobin and hematocrit and transfuse as needed Cold anticoagulation therapy at this time Appreciate ICU care Surgical service also following the patient Plan for endoscopic evaluation with EGD and colonoscopy on 01/21/2020 Thank you for allowing us to participate in the care of the patient
[2020-01-19 22:26] LABS: Anisocytosis Slight; HCT 24.7 % (34.0-46.0); Hypochromasia Marked; MCH 27.3 pg (25.0-35.0); MCHC 30.6 g/dL (31.0-37.0); MCV 89.1 fL (80.0-100.0); Mean Platelet Volume 8.6; Platelet Count 239 k/uL (150-450); Poikilocytosis Slight; RBC 2.78 m/uL (3.80-5.40); RDW 17.9 % (11.5-15.5); WBC 9.9 k/uL (3.8-10.6)
[2020-01-19 22:30] LABS: HGB 7.6 gm/dL (11.4-16.0)
[2020-01-19] MEDS: NOREPINEPHRINE 4 MG in SODIUM CHLORIDE 0.9% 250 ML IV SCH (23:25)
[2020-01-20 04:22] LABS: Anisocytosis Slight; Hypochromasia Marked; MCHC 30.7 g/dL (31.0-37.0); MCV 91.2 fL (80.0-100.0); Mean Platelet Volume 8.7; Platelet Count 224 k/uL (150-450); Poikilocytosis Slight; RBC 3.29 m/uL (3.80-5.40); RDW 16.6 % (11.5-15.5); WBC 13.1 k/uL (3.8-10.6)
[2020-01-20 04:25] LABS: HGB 9.2 gm/dL (11.4-16.0)
[2020-01-20] MEDS: NOREPINEPHRINE 4 MG in SODIUM CHLORIDE 0.9% 250 ML IV SCH ×4 (04:27→17:01)
[2020-01-20 04:53] LABS: African American GFR (CKD) >90 (>60 ml/min/1.73 sqM); Anion Gap 3 mmol/L; Blood Urea Nitrogen 19 mg/dL (7-17); Calcium 7.2 mg/dL (8.4-10.2); Carbon Dioxide 22 mmol/L (22-30); Chloride 113 mmol/L (98-107); Glucose 123 mg/dL (74-99); Magnesium 1.7 mg/dL (1.6-2.3); Non-African American GFR(CKD) >90 (>60 ml/min/1.73 sqM); Potassium 4.1 mmol/L (3.5-5.1); Sodium 138 mmol/L (137-145)
--- NOTE | 2020-01-20 08:37 | P.PN ---
Subjective Progress Note Date: 01/20/20 Patient seen and examined at bedside. I was called overnight as the patient did have recurrence of GI bleeding. Hemoglobin did decrease to below 8 with active bleeding and the patient was transfused 2 additional packed red blood cells. Currently, her hemoglobin has responded and is greater than 9. She did require some pressor therapy to maintain hemodynamics. Patient states currently that she is having some abdominal soreness and her last bloody bowel movement was over 6 hours ago. Objective - Vital Signs Vital signs: Vital Signs Temp 97.9 F 01/20/20 04:00 Pulse 98 01/20/20 07:15 Resp 13 01/20/20 07:15 BP 80/55 01/20/20 07:15 Pulse Ox 98 01/20/20 07:15 Intake & Output 01/19/20 01/20/20 01/20/20 18:59 06:59 18:59 Intake Total 2545 4736.396 100 Output Total 353 365 30 Balance 2192 4371.396 70 Weight 115.7 kg Intake: IV 2425 3200 100 Potassium Chloride 10 meq 200 In Water For Injection 1 100ml.bag @ 100 mls/hr IVPB Q1H [facility] Rx#: [id number] Sodium Chloride 0.9% 1, 2225 1200 100 000 ml @ 100 mls/hr IV . Q10H [facility] Rx#:[id number] Sodium Chloride 0.9% 1, 1000 000 ml @ 999 mls/hr IV . Q1H1M [facility] Rx#:[id number] Sodium Chloride 0.9% 1, 1000 000 ml @ 999 mls/hr IV . Q1H1M [facility] Rx#:[id number] Intake, IV Titration 296.396 Amount Norepinephrine 4 mg In 296.396 Sodium Chloride 0.9% 250 ml @ 0.05 MCG/KG/MIN 21. 222 mls/hr IV .[id number] [facility] Rx#:[id number] Oral 120 Blood Product 1240 Rc As-1 Unit 310 [id number] Rc Pheresis As-3 Unit 310 [id number] Output: Urine 353 365 30 Other: Voiding Method Indwelling Catheter Indwelling Catheter # Bowel Movements 3 - Constitutional General appearance: Present: cooperative, no acute distress - Gastrointestinal Gastrointestinal Comment(s): Soft, nontender, mild distention, no rebound, no guarding - Musculoskeletal Musculoskeletal: Present: generalized weakness - Psychiatric Psychiatric: Present: A&O x's 3 - Labs CBC & Chem 7: 01/20/20 03:27 01/20/20 03:27 Labs: Abnormal Lab Results - Last 24 Hours (Table) 01/18/20 01/19/20 01/19/20 Range/Units 21:30 12:15 22:10 WBC (3.8-10.6) k/uL RBC 3.55 L 2.78 L (3.80-5.40) m/uL Hgb 10.1 L 7.6 L D (11.4-16.0) gm/dL Hct 31.3 L 24.7 L (34.0-46.0) % MCHC 30.6 L (31.0-37.0) g/dL RDW 17.8 H 17.9 H (11.5-15.5) % Chloride (98-107) mmol/L BUN (7-17) mg/dL Glucose (74-99) mg/dL Calcium (8.4-10.2) mg/dL Crossmatch See Detail 01/20/20 01/20/20 Range/Units 03:27 03:27 WBC 13.1 H (3.8-10.6) k/uL RBC 3.29 L (3.80-5.40) m/uL Hgb 9.2 L D (11.4-16.0) gm/dL Hct 30.0 L (34.0-46.0) % MCHC 30.7 L (31.0-37.0) g/dL RDW 16.6 H (11.5-15.5) % Chloride 113 H (98-107) mmol/L BUN 19 H (7-17) mg/dL Glucose 123 H (74-99) mg/dL Calcium 7.2 L (8.4-10.2) mg/dL Crossmatch Assessment and Plan Plan: 64-year-old female with GI bleed - Based on the patient's symptomatology, this does appear to be a lower GI bleed. She did require additional transfusion overnight due to recurrent GI bleed. Gastroenterology has made recommendation for upper and lower endoscopy in the next 24 hours. I would recommend continuing to transfuse as necessary. Hold anticoagulation. If concern for continued active bleeding, consider tagged red blood cell scan if necessary. We'll continue to follow with ICU in GI recommendations.
[2020-01-20] MEDS: MAGNESIUM SULFATE-D5W PMX 1 GM in DEXTROSE/WATER 1 100ML.BAG IVPB SCH ×2 (08:52→13:10)
[2020-01-20] MEDS: PANTOPRAZOLE 40 MG/10 ML VIAL IVP SCH (08:52)
[2020-01-20 11:16] LABS: Anisocytosis Slight; HCT 25.4 % (34.0-46.0); HGB 8.1 gm/dL (11.4-16.0); Hypochromasia Moderate; MCH 27.9 pg (25.0-35.0); MCHC 31.8 g/dL (31.0-37.0); MCV 87.6 fL (80.0-100.0); Mean Platelet Volume 8.5; Platelet Count 225 k/uL (150-450); Poikilocytosis Slight; WBC 13.2 k/uL (3.8-10.6)
--- NOTE | 2020-01-20 12:12 | P.PN ---
Subjective Progress Note Date: 01/20/20 On 01/20/2020, the patient is being seen for a follow-up. The patient ICU for ongoing GI bleed. Note that yesterday overnight the patient continued to have recurrent GI bleeding. Note that she also had hemodynamic instability along with a GI bleed. Hemoglobin dropped down to 8 and the patient wasn't actively bleeding and the patient got transfused with 2 additional packed RBC. Her hemoglobin responded and is greater than 9 at this point in time. Noted the patient required IV fluids and she was given IV boluses and the patient currently is in normal state rate of 100 mL an hour and she is also on norepinephrine infusion at 40 mg per minute. Overall she has received a total of 4U packed RBC and she received an additional 2 L of IV fluids yesterday. She remains in atrial fibrillation. I have inserted a triple lumen catheter. Discussed the case with gastroenterology and the patient is going to have an EGD tomorrow to rule out upper GI source of bleeding and general surgeries on the case. Surgical intervention is needed at this point in time. She is nothing by mouth for now. Objective - Vital Signs Vital signs: Vital Signs Temp 97.9 F 01/20/20 08:15 Pulse 93 01/20/20 11:00 Resp 18 01/20/20 11:00 BP 96/67 01/20/20 11:00 Pulse Ox 96 01/20/20 11:00 Intake & Output 01/19/20 01/20/20 01/20/20 18:59 06:59 18:59 Intake Total 2545 4736.396 666.921 Output Total 353 365 165 Balance 2192 4371.396 501.921 Weight 115.7 kg Intake: IV 2425 3200 500 Potassium Chloride 10 meq 200 In Water For Injection 1 100ml.bag @ 100 mls/hr IVPB Q1H [facility] Rx#: [id number] Sodium Chloride 0.9% 1, 2225 1200 500 000 ml @ 100 mls/hr IV . Q10H [facility] Rx#:[id number] Sodium Chloride 0.9% 1, 1000 000 ml @ 999 mls/hr IV . Q1H1M [facility] Rx#:[id number] Sodium Chloride 0.9% 1, 1000 000 ml @ 999 mls/hr IV . Q1H1M [facility] Rx#:[id number] Intake, IV Titration 296.396 166.921 Amount Norepinephrine 4 mg In 296.396 166.921 Sodium Chloride 0.9% 250 ml @ 0.05 MCG/KG/MIN 21. 222 mls/hr IV .[id number] [facility] Rx#:[id number] Oral 120 Blood Product 1240 Rc As-1 Unit 310 [id number] Rc Pheresis As-3 Unit 310 [id number] Output: Urine 353 365 165 Other: Voiding Method Indwelling Catheter Indwelling Catheter Indwelling Catheter # Bowel Movements 3 - Exam The patient appeared well nourished and normally developed. Vital signs as documented. Head exam is unremarkable. No scleral icterus or corneal arcus noted. Neck is without jugular venous distension, thyromegaly, or carotid bruits. Carotid upstrokes are brisk bilaterally. Lungs are clear to auscultation and percussion. Cardiac exam reveals the PMI to be normally sized and situated. Rhythm is irregular and consistent with atrial fibrillation. The. First and second heart sounds normal. No murmurs, rubs or gallops. Abdominal exam reveals normal bowel sounds, no masses, no organomegaly and no aortic enlargement. Extremities are nonedematous and both femoral and pedal pulses are normal.Examination of the skin revealed no evidence of significant rashes, suspicious appearing nevi or other concerning lesions.Neurologically, the patient is awake and alert and the patient does not have any focal neurological deficit. Cranial nerves are essentially intact. - Labs CBC & Chem 7: 01/20/20 11:00 01/20/20 03:27 Labs: Abnormal Lab Results - Last 24 Hours (Table) 01/18/20 01/19/20 01/19/20 Range/Units 21:30 12:15 22:10 WBC (3.8-10.6) k/uL RBC 3.55 L 2.78 L (3.80-5.40) m/uL Hgb 10.1 L 7.6 L D (11.4-16.0) gm/dL Hct 31.3 L 24.7 L (34.0-46.0) % MCHC 30.6 L (31.0-37.0) g/dL RDW 17.8 H 17.9 H (11.5-15.5) % Chloride (98-107) mmol/L BUN (7-17) mg/dL Glucose (74-99) mg/dL Calcium (8.4-10.2) mg/dL Crossmatch See Detail 01/20/20 01/20/20 01/20/20 Range/Units 03:27 03:27 11:00 WBC 13.1 H 13.2 H (3.8-10.6) k/uL RBC 3.29 L 2.90 L (3.80-5.40) m/uL Hgb 9.2 L D 8.1 L (11.4-16.0) gm/dL Hct 30.0 L 25.4 L (34.0-46.0) % MCHC 30.7 L (31.0-37.0) g/dL RDW 16.6 H 17.0 H (11.5-15.5) % Chloride 113 H (98-107) mmol/L BUN 19 H (7-17) mg/dL Glucose 123 H (74-99) mg/dL Calcium 7.2 L (8.4-10.2) mg/dL Crossmatch Assessment and Plan Plan: 1 GI bleed likely of a lower GI source. Consider diverticular bleed. Consider AV malformation. There is also the possibility of an upper GI source of bleeding such as duodenal ulcer. The patient has overall received a total of 4 units of packed RBC. She is currently hypotensive and she is gradually being weaned off levo fed as the patient is also receiving normal saline. She received additional 2 L of IV fluids and norepinephrine infusion is being gradually weaned off. Most recent hemoglobin is at 8.1. 2 hypotension secondary to above, improved with fluids and blood products. Currently she is being given IV fluids and pressors. 3 chronic atrial fibrillation, on no anticoagulants, awaiting results of the echocardiogram. 4 chronic swelling of the lower extremities bilaterally Plan Keep the patient nothing by mouth IV fluids at the rate of 100 mL an hour IV Protonix Monitor hemoglobin Blood products if needed for hemoglobin less than 8 General surgeries on the case. The plan is to wean the patient of the pressors. Resuscitative fluids. Give blood products. EGD tomorrow and possible colonoscopy. General surgeries on the case and standby if the patient continues to show ongoing bleeding. A triple lumen catheter was established. Echocardiogram results are pending. We'll continue to follow. The patient will be kept in ICU for now.
--- NOTE | 2020-01-20 12:13 | P.PCN ---
Date of Procedure: 01/20/20 Preoperative Diagnosis: GI bleeding, hypotension Postoperative Diagnosis: Same Procedure(s) Performed: Central line insertion Anesthesia: local Surgeon: Jaiden Ascencio Estimated Blood Loss (ml): 0 Pathology: none sent Condition: critical Disposition: ICU Operative Findings: Indication: Hemodynamic monitoring/Intravenous access. A time-out was completed verifying correct patient, procedure, site, positioning, and implant(s) or special equipment if applicable. The patient was placed in a dependent position appropriate for central line placement based on the vein to be cannulated. The patient"s left groin was prepped and draped in sterile fashion. 1% Lidocaine was used to anesthetize the surrounding skin area. A triple lumen 9F Cordis catheter was introduced into the common femoral vein using Seldinger technique. The catheter was threaded smoothly over the guide wire and appropriate blood return was obtained. Each lumen of the catheter was evacuated of air and flushed with sterile saline. The catheter was then sutured in place to the skin and a sterile dressing applied. Perfusion to the extremity distal to the point of catheter insertion was checked and found to be adequate. The patient tolerated the procedure well and there were no complications.
--- NOTE | 2020-01-20 15:29 | ECHOF ---
Referral Reason:chf, a fib MEASUREMENTS -------- HEIGHT: 162.6 cm WEIGHT: 111.1 kg BP: 89/78 RVIDd: 4.3 cm (< 3.3) IVSd: 1.7 cm (0.6 - 1.1) LVIDd: 5.9 cm (3.9 - 5.3) LVPWd: 1.5 cm (0.6 - 1.1) IVSs: 1.8 cm LVIDs: 4.8 cm LVPWs: 2.0 cm LA Diam: 5.6 cm (2.7 - 3.8) LAESV Index (A-L): 69.09 ml/m Ao Diam: 3.5 cm (2.0 - 3.7) AV Cusp: 1.6 cm (1.5 - 2.6) MV EXCURSION: 10.613 mm (> 18.000) MV EF SLOPE: 85 mm/s (70 - 150) EPSS: 1.2 cm AR PHT: 565 ms RAP: 5.00 mmHg RVSP: 46.33 mmHg FINDINGS -------- Atrial fibrillation. All cain not well visulized The left ventricle is moderately dilated. There is moderate concentric left ventricular hypertrophy . There is moderate global hypokinesis of LV . Overall left ventricular systolic function is kim rely impaired with, an EF between 20 - 25 %. Increased Lap Grade II Diastolic Dysfunction. The right ventricle is severely enlarged. LA is severely dilated >40 ml/m2 The right atrium is moderately enlarged. 5.0mg of Lumason was utilized for enhancement of images Interatrial and interventricular septum intact. The aortic valve is trileaflet and appears structurally normal. There is mild aortic valve sclerosi s. There is aenj-rq-fbpbllos aortic regurgitation. There is no evidence of aortic stenosis. Mild mitral annular calcification present. Qnddsdpv-dk-ajgipf mitral regurgitation is present. Moderate to severe tricuspid regurgitation present. There is moderate pulmonary hypertension. The right ventricular systolic pressure, as measured by Doppler, is 46.33mmHg. Trace/mild (physiologic) pulmonic regurgitation. The aortic root size is normal. The inferior vena cava is mildly dilated. There is a small, generalized pericardial effusion present. Large Pleural Effusion. CONCLUSIONS -------- 1. The left ventricle is moderately dilated. 2. There is moderate concentric left ventricular hypertrophy. 3. There is moderate global hypokinesis of LV . 4. Overall left ventricular systolic function is severely impaired with, an EF between 20 - 25 %. 5. Increased Lap Grade II Diastolic Dysfunction. 6. The right ventricle is severely enlarged. 7. LA is severely dilated >40 ml/m2 8. The right atrium is moderately enlarged. 9. There is mild aortic valve sclerosis. 10. There is jiql-fj-icydgnvk aortic regurgitation. 11. Mild mitral annular calcification present. 12. Vglqssbl-gv-pjtetl mitral regurgitation is present. 13. Moderate to severe tricuspid regurgitation present. 14. There is moderate pulmonary hypertension. 15. The right ventricular systolic pressure, as measured by Doppler, is 46.33mmHg. 16. Trace/mild (physiologic) pulmonic regurgitation. 17. The inferior vena cava is mildly dilated. 18. There is a small, generalized pericardial effusion present. 19. Large Pleural Effusion. NOCTURNIST PHYSICIAN: Naomi Leonardo RDCS
[2020-01-20] MEDS ORDERED: NOREPINEPHRIN 4 MG-0.9% NS PMX 4 MG/250 ML ML IV ONE (15:55)
[2020-01-20] MEDS ORDERED: PEG 3350-NA SULF,BICARB,CL/KCL 4,000 ML BOTTLE PO ONE (16:00)
--- NOTE | 2020-01-20 16:43 | P.PN ---
Subjective 64-year-old pleasant female came in with the complaints of bright red blood per rectum multiple episodes. Patient's immobility and was 17. Present hemoglobin is 10 patient received 2 units of PRBC. Patient had a colonoscopy 5 years ago results of which are not available at this time. Patient denied any significant abdominal pain. Patient blood pressure is low patient is on IV fluids. Patient does have bilateral pedal edema along with an ulcer in the right leg with some redness in that area although doesn't appear to be cellulitic. Patient does have history of atrial fibrillation not on anticoagulation patient is on baby aspirin. Patient is also on Lasix. Although patient doesn't know if she has heart failure. No echo is available echo was ordered. Patient clinically is not in heart failure exacerbation at this time. 01/20/2020 Patient had multiple episodes of massive GI bleed with dark stools as well because of which patient is being planned for upper GI endoscopy tomorrow if that doesn't show much patient will undergo colonoscopy. Transfuse PRBC on as- needed basis. If patient has another episode of GI bleed patient will be transfused independent of what the hemoglobin is Constitutional: Denied any fatigue denied any fever. Cardio vascular: denied any chest pain, palpitations Gastrointestinal as mentioned in HPI Pulmonary: Denied any shortness of breath cough Neurologic denied any new focal deficits All inpatient medications were reviewed and appropriate changes in these medications as dictated in the interval history and assessment and plan. Objective - Vital Signs Vital signs: Vital Signs Temp 97.9 F 01/20/20 08:15 Pulse 97 01/20/20 15:00 Resp 19 01/20/20 15:00 BP 106/68 01/20/20 15:00 Pulse Ox 97 01/20/20 15:00 Intake & Output 01/19/20 01/20/20 01/20/20 18:59 06:59 18:59 Intake Total 2545 4736.396 1501.538 Output Total 353 365 370 Balance 2192 4371.396 1131.538 Weight 115.7 kg Intake: IV 2425 3200 1200 Magnesium Sulfate-D5w Pmx 200 1 gm In Dextrose/Water 1 100ml.bag @ 100 mls/hr IVPB Q1H [facility] Rx#: [id number] Potassium Chloride 10 meq 200 In Water For Injection 1 100ml.bag @ 100 mls/hr IVPB Q1H [facility] Rx#: [id number] Sodium Chloride 0.9% 1, 2225 1200 1000 000 ml @ 100 mls/hr IV . Q10H [facility] Rx#:[id number] Sodium Chloride 0.9% 1, 1000 000 ml @ 999 mls/hr IV . Q1H1M [facility] Rx#:[id number] Sodium Chloride 0.9% 1, 1000 000 ml @ 999 mls/hr IV . Q1H1M [facility] Rx#:[id number] Intake, IV Titration 296.396 301.538 Amount Norepinephrine 4 mg In 296.396 301.538 Sodium Chloride 0.9% 250 ml @ 0.05 MCG/KG/MIN 21. 222 mls/hr IV .[id number] [facility] Rx#:[id number] Oral 120 Blood Product 1240 Rc As-1 Unit 310 [id number] Rc Pheresis As-3 Unit 310 [id number] Output: Urine 353 365 370 Other: Voiding Method Indwelling Catheter Indwelling Catheter Indwelling Catheter # Bowel Movements 3 - Exam PHYSICAL EXAMINATION: GENERAL: The patient is alert and oriented x3, not in any acute distress. Well developed, well nourished. HEENT: Pupils are round and equally reacting to light. EOMI. No scleral icterus. Does have conjunctival pallor. Normocephalic, atraumatic. No pharyngeal erythema. No thyromegaly. CARDIOVASCULAR: S1 and S2 present. No murmurs, rubs, or gallops. Tachycardic irregularly irregular rhythm PULMONARY: Chest is clear to auscultation, no wheezing or crackles. ABDOMEN: Soft, nontender, nondistended, normoactive bowel sounds. No palpable organomegaly. MUSCULOSKELETAL: No joint swelling or deformity. EXTREMITIES: No cyanosis, clubbing, bilateral pedal edema significant in the r ight leg with the a stage II ulcer in the midshin area NEUROLOGICAL: Gross neurological examination did not reveal any focal deficits. SKIN: No rashes. - Labs CBC & Chem 7: 01/20/20 11:00 01/20/20 03:27 Labs: Abnormal Lab Results - Last 24 Hours (Table) 01/18/20 01/19/20 01/20/20 Range/Units 21:30 22:10 03:27 WBC (3.8-10.6) k/uL RBC 2.78 L (3.80-5.40) m/uL Hgb 7.6 L D (11.4-16.0) gm/dL Hct 24.7 L (34.0-46.0) % MCHC 30.6 L (31.0-37.0) g/dL RDW 17.9 H (11.5-15.5) % Chloride 113 H (98-107) mmol/L BUN 19 H (7-17) mg/dL Glucose 123 H (74-99) mg/dL Calcium 7.2 L (8.4-10.2) mg/dL Crossmatch See Detail 01/20/20 01/20/20 Range/Units 03:27 11:00 WBC 13.1 H 13.2 H (3.8-10.6) k/uL RBC 3.29 L 2.90 L (3.80-5.40) m/uL Hgb 9.2 L D 8.1 L (11.4-16.0) gm/dL Hct 30.0 L 25.4 L (34.0-46.0) % MCHC 30.7 L (31.0-37.0) g/dL RDW 16.6 H 17.0 H (11.5-15.5) % Chloride (98-107) mmol/L BUN (7-17) mg/dL Glucose (74-99) mg/dL Calcium (8.4-10.2) mg/dL Crossmatch Assessment and Plan Plan: -Possibly acute lower GI bleed possibly of diverticulosis or AV malformation contributed to that patient will need colonoscopy gastric body evaluate the patient since she had the an episode of dark stool is a consideration of upper GI bleed as well patient will undergo upper GI endoscopy followed by colonoscopy if needed monitor for any clinical GI bleed will transfuse if she has any more GI bleed - Hypovolemic shock hypotension secondary to acute GI bleed and if his medications will be held -hypertension: Because of hypotension I'm holding off on antidepressant medications -Chronic A. fib not on any anti-coagulation presently not a candidate for anticoagulation patient is presently not on any rate control medications patient is actually on norepinephrine -Chronic venous insufficiency and chronic leg swelling with an ulcer local wound care.
[2020-01-20] MEDS ORDERED: bisacodyL 5 MG TABLET.DR PO ONE (17:00)
[2020-01-20 20:01] LABS: Anisocytosis Slight; Basophils # (A) 0.1 k/uL (0-0.2); Basophils % (A) 1 %; Eosinophils # (A) 0.3 k/uL (0-0.7); Eosinophils % (A) 2 %; HCT 23.6 % (34.0-46.0); HGB 7.4 gm/dL (11.4-16.0); Hypochromasia Moderate; Lymphocytes # (A) 1.9 k/uL (1.0-4.8); Lymphocytes % (A) 15 %; MCH 27.6 pg (25.0-35.0); MCHC 31.4 g/dL (31.0-37.0); MCV 87.8 fL (80.0-100.0); Mean Platelet Volume 8.4; Monocytes # (A) 0.8 k/uL (0-1.0); Monocytes % (A) 6 %; Neutrophils # (A) 9.2 k/uL (1.3-7.7); Neutrophils % (A) 74 %; Platelet Count 243 k/uL (150-450); Poikilocytosis Slight; RBC 2.69 m/uL (3.80-5.40); RDW 17.5 % (11.5-15.5); WBC 12.4 k/uL (3.8-10.6)
--- NOTE | 2020-01-20 21:24 | P.PN ---
Subjective Progress Note Date: 01/20/20 Principal diagnosis: GI bleed, anemia of acute blood loss Patient is seen lying in bed today. 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 No abdominal pain reported. Objective - Vital Signs Vital signs: Vital Signs Temp 97.9 F 01/20/20 08:15 Pulse 103 H 01/20/20 09:00 Resp 21 01/20/20 09:00 BP 89/44 01/20/20 09:00 Pulse Ox 97 01/20/20 09:00 Intake & Output 01/19/20 01/20/20 01/20/20 18:59 06:59 18:59 Intake Total 2545 4736.396 415.659 Output Total 353 365 105 Balance 2192 4371.396 310.659 Weight 115.7 kg Intake: IV 2425 3200 300 Potassium Chloride 10 meq 200 In Water For Injection 1 100ml.bag @ 100 mls/hr IVPB Q1H [facility] Rx#: [id number] Sodium Chloride 0.9% 1, 2225 1200 300 000 ml @ 100 mls/hr IV . Q10H [facility] Rx#:[id number] Sodium Chloride 0.9% 1, 1000 000 ml @ 999 mls/hr IV . Q1H1M [facility] Rx#:[id number] Sodium Chloride 0.9% 1, 1000 000 ml @ 999 mls/hr IV . Q1H1M [facility] Rx#:[id number] Intake, IV Titration 296.396 115.659 Amount Norepinephrine 4 mg In 296.396 115.659 Sodium Chloride 0.9% 250 ml @ 0.05 MCG/KG/MIN 21. 222 mls/hr IV .[id number] [facility] Rx#:[id number] Oral 120 Blood Product 1240 Rc As-1 Unit 310 [id number] Rc Pheresis As-3 Unit 310 [id number] Output: Urine 353 365 105 Other: Voiding Method Indwelling Catheter Indwelling Catheter Indwelling Catheter # Bowel Movements 3 - Exam On physical examination, patient appears comfortable in no apparent distress. HEAD: Normocephalic, atraumatic. EYES: No scleral icterus. No conjunctival injection. MOUTH: No lesions, tongue midline. NECK: Trachea midline, no gross abnormalities. ABDOMEN: Soft, obese. Bowel sounds are positive. No organomegaly. No guarding or rigidity. EXTREMITIES: No pedal edema. SKIN: No rashes, no jaundice. NEUROLOGIC: Alert and oriented x3. No focal deficits. - Labs CBC & Chem 7: 01/20/20 19:30 01/20/20 03:27 Labs: Abnormal Lab Results - Last 24 Hours (Table) 01/18/20 01/19/20 01/19/20 Range/Units 21:30 12:15 22:10 WBC (3.8-10.6) k/uL RBC 3.55 L 2.78 L (3.80-5.40) m/uL Hgb 10.1 L 7.6 L D (11.4-16.0) gm/dL Hct 31.3 L 24.7 L (34.0-46.0) % MCHC 30.6 L (31.0-37.0) g/dL RDW 17.8 H 17.9 H (11.5-15.5) % Chloride (98-107) mmol/L BUN (7-17) mg/dL Glucose (74-99) mg/dL Calcium (8.4-10.2) mg/dL Crossmatch See Detail 01/20/20 01/20/20 Range/Units 03:27 03:27 WBC 13.1 H (3.8-10.6) k/uL RBC 3.29 L (3.80-5.40) m/uL Hgb 9.2 L D (11.4-16.0) gm/dL Hct 30.0 L (34.0-46.0) % MCHC 30.7 L (31.0-37.0) g/dL RDW 16.6 H (11.5-15.5) % Chloride 113 H (98-107) mmol/L BUN 19 H (7-17) mg/dL Glucose 123 H (74-99) mg/dL Calcium 7.2 L (8.4-10.2) mg/dL Crossmatch Assessment and Plan (1) Hematochezia Narrative/Plan: 64-year-old female who presented to the emergency department with multiple episodes of painless bright red blood per rectum with associated fall in hemoglobin currently at 10.1 status post 2 units of blood cells. Last colonoscopy 5 years ago significant for polypectomy per report from the patient. She denies any history of GI bleed, peptic ulcer disease, NSAID use, or prior upper endoscopy. Unknown etiology with suspicion for diverticular bleed with differential including ischemic colitis, AVM, peptic ulcer disease or other etiology. Current Visit: Yes Status: Acute Code(s): K92.1 - MELENA SNOMED Code(s): 266441829 (2) Anemia associated with acute blood loss Current Visit: Yes Status: Acute Code(s): D62 - ACUTE POSTHEMORRHAGIC ANEMIA SNOMED Code(s): 327853218 Plan: Supportive care Nothing by mouth, except for sips of water and ice chips Continue to monitor hemoglobin and hematocrit and transfuse as needed Cold anticoagulation therapy at this time Appreciate ICU care Surgical service also following the patient Extensive discussion with the patient regarding endoscopic evaluation tomorrow, plan was for EGD and colonoscopy, however the patient is hesitant to undergo bowel prep and is refusing colonoscopic evaluation at this time, all the risks, benefits and possible complications of both undergoing the procedure or refer going the procedure were explained to the patient at length with all of her questions answered to her satisfaction At this time plan is to proceed with EGD tomorrow Thank you for allowing us to participate in the care of the patient
[2020-01-20] MEDS: SODIUM CHLORIDE 0.9% 1,000 ML IV SCH (21:27)
[2020-01-21 00:12] LABS: Anisocytosis Slight; HCT 23.1 % (34.0-46.0); HGB 7.3 gm/dL (11.4-16.0); Hypochromasia Marked; MCH 28.1 pg (25.0-35.0); MCHC 31.4 g/dL (31.0-37.0); MCV 89.3 fL (80.0-100.0); Mean Platelet Volume 8.3; Platelet Count 236 k/uL (150-450); Poikilocytosis Slight; RBC 2.59 m/uL (3.80-5.40); RDW 17.5 % (11.5-15.5); WBC 12.3 k/uL (3.8-10.6)
[2020-01-21] MEDS: SODIUM CHLORIDE 0.9% 1,000 ML IV SCH ×4 (03:28→20:52)
[2020-01-21] MEDS: NOREPINEPHRINE 4 MG in SODIUM CHLORIDE 0.9% 250 ML IV SCH (03:55)
[2020-01-21 05:08] LABS: Anisocytosis Slight; HCT 23.3 % (34.0-46.0); HGB 7.3 gm/dL (11.4-16.0); Hypochromasia Marked; MCH 28.1 pg (25.0-35.0); MCHC 31.5 g/dL (31.0-37.0); MCV 89.1 fL (80.0-100.0); Mean Platelet Volume 8.2; Platelet Count 252 k/uL (150-450); Poikilocytosis Slight; RBC 2.61 m/uL (3.80-5.40); RDW 17.6 % (11.5-15.5)
[2020-01-21 05:10] LABS: African American GFR (CKD) >90 (>60 ml/min/1.73 sqM); Anion Gap 1 mmol/L; Blood Urea Nitrogen 17 mg/dL (7-17); Calcium 7.2 mg/dL (8.4-10.2); Carbon Dioxide 22 mmol/L (22-30); Chloride 113 mmol/L (98-107); Glucose 97 mg/dL (74-99); Magnesium 2.1 mg/dL (1.6-2.3); Non-African American GFR(CKD) >90 (>60 ml/min/1.73 sqM); Potassium 3.9 mmol/L (3.5-5.1); Sodium 136 mmol/L (137-145)
--- NOTE | 2020-01-21 07:00 | P.PN ---
Subjective Progress Note Date: 01/21/20 Patient seen and examined at bedside. Resting comfortably. 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 Objective - Vital Signs Vital signs: Vital Signs Temp 98.2 F 01/21/20 04:00 Pulse 103 H 01/21/20 06:00 Resp 15 01/21/20 06:00 BP 118/63 01/21/20 06:00 Pulse Ox 94 L 01/21/20 06:00 Intake & Output 01/20/20 01/20/20 01/21/20 06:59 18:59 06:59 Intake Total 4736.396 5747.921 9795.888 Output Total 450 646 1164 Balance 4371.396 1348.428 -93.112 Weight 115.7 kg 117 kg Intake: IV 3200 1400 1200 Magnesium Sulfate-D5w Pmx 200 1 gm In Dextrose/Water 1 100ml.bag @ 100 mls/hr IVPB Q1H [facility] Rx#: [id number] Sodium Chloride 0.9% 1, 1200 1200 1200 000 ml @ 100 mls/hr IV . Q10H [facility] Rx#:[id number] Sodium Chloride 0.9% 1, 1000 000 ml @ 999 mls/hr IV . Q1H1M [facility] Rx#:[id number] Sodium Chloride 0.9% 1, 1000 000 ml @ 999 mls/hr IV . Q1H1M [facility] Rx#:[id number] Intake, IV Titration 296.396 393.428 206.888 Amount Norepinephrine 4 mg In 296.396 393.428 206.888 Sodium Chloride 0.9% 250 ml @ 0.05 MCG/KG/MIN 21. 222 mls/hr IV .[id number] [facility] Rx#:[id number] Blood Product 1240 Rc As-1 Unit 310 [id number] Rc Pheresis As-3 Unit 310 [id number] Output: Urine 357 620 7747 Other: Voiding Method Indwelling Catheter Indwelling Catheter Indwelling Catheter # Bowel Movements 3 - Constitutional General appearance: Present: cooperative, no acute distress - Gastrointestinal Gastrointestinal Comment(s): Soft, nontender, nondistended, no rebound, no guarding - Labs CBC & Chem 7: 01/21/20 04:30 01/21/20 04:30 Labs: Abnormal Lab Results - Last 24 Hours (Table) 01/20/20 01/20/2001/19/20 Range/Units 11:00 19:30 23:57 WBC 13.2 H 12.4 H 12.3 H (3.8-10.6) k/uL RBC 2.90 L 2.69 L 2.59 L (3.80-5.40) m/uL Hgb 8.1 L 7.4 L 7.3 L (11.4-16.0) gm/dL Hct 25.4 L 23.6 L 23.1 L (34.0-46.0) % RDW 17.0 H 17.5 H 17.5 H (11.5-15.5) % Neutrophils # 9.2 H (1.3-7.7) k/uL Sodium (137-145) mmol/L Chloride (98-107) mmol/L Creatinine (0.52-1.04) mg/dL Calcium (8.4-10.2) mg/dL 01/21/20 01/21/20 Range/Units 04:30 04:30 WBC 11.0 H (3.8-10.6) k/uL RBC 2.61 L (3.80-5.40) m/uL Hgb 7.3 L (11.4-16.0) gm/dL Hct 23.3 L (34.0-46.0) % RDW 17.6 H (11.5-15.5) % Neutrophils # (1.3-7.7) k/uL Sodium 136 L (137-145) mmol/L Chloride 113 H (98-107) mmol/L Creatinine 0.48 L (0.52-1.04) mg/dL Calcium 7.2 L (8.4-10.2) mg/dL Assessment and Plan Plan: 64-year-old female with GI bleed - No bloody bowel movements overnight - Patient is scheduled for endoscopy today. Per GI note, patient is refusing lower endoscopy and will be having upper endoscopy today. - Continue supportive management - Will continue to follow and make recommendations based on the patient's clinical progress
[2020-01-21] MEDS: PANTOPRAZOLE 40 MG/10 ML VIAL IVP SCH (08:17)
[2020-01-21] MEDS ORDERED: METOPROLOL TARTRATE 5 MG/5 ML VIAL IVP SCH (09:00)
[2020-01-21] MEDS ORDERED: SODIUM CHLORIDE 0.65% NASAL SPRAY 44 ML BTL NASAL PRN (10:19)
[2020-01-21] MEDS ORDERED: PROPOFOL 10 MG/ML 20 ML VIAL IV ONE (12:12)
[2020-01-21] MEDS ORDERED: IV FLUID CONTINUATION 1,000 ML IV ONE ×2 (12:24)
--- NOTE | 2020-01-21 12:42 | P.PCN ---
Date of Procedure: 01/21/20 Description of Procedure: BRIEF HISTORY: 64-year-old female who presented to the emergency department with multiple episodes of painless bright red blood per rectum with associated fall in hemoglobin currently at 10.1 status post 2 units of blood cells. Last colonoscopy 5 years ago significant for polypectomy per report from the patient. She denies any history of GI bleed, peptic ulcer disease, NSAID use, or prior upper endoscopy. PROCEDURE PERFORMED: Esophagogastroduodenoscopy. PREOPERATIVE DIAGNOSIS: GI bleed, anemia of acute blood loss. ESTIMATED BLOOD LOSS: Minimal. IV sedation per anesthesia. PROCEDURE: After informed consent was obtained, the patient was brought into the endoscopy unit. IV sedation was administered by Anesthesia under continuous monitoring. Initially the Olympus GIF-190 video endoscope was inserted into the mouth. Esophagus intubated without any difficulty. It was gradually advanced into the stomach and duodenum and carefully examined. The bulb and the second part of the duodenum appeared normal. The scope at this time was withdrawn to the stomach, adequately insufflated with air, and upon careful examination, mucosa of the antrum, body, cardia and the fundus appeared normal, except for some mild scattered erythema suggestive of mild gastritis. The scope was then withdrawn into the esophagus. The GE junction was located at 42 cm from the incisors. The esophagus appeared normal. There were no erosions or ulcerations seen and the patient tolerated the procedure well. IMPRESSION: 1. Mild gastritis antrum and body. 2. Otherwise no active bleeding, old blood or pathology to explain symptoms. RECOMMENDATIONS: The findings of this examination were discussed with the patient. Okay to resume liquid diet. Bowel prep ordered for tomorrow, plan for colonoscopy for further evaluation. Continue ICU care. Continue to monitor hemoglobin and hematocrit and transfuse as needed.
--- NOTE | 2020-01-21 13:40 | P.PN ---
Subjective Progress Note Date: 01/21/20 Principal diagnosis: Acute GI bleeding 64-year-old. Patient came into the hospital after she had a sudden onset bloody stool at home and she was very much concerned that the patient continued to have episodes of bloody stool throughout the night. She came into the emergency room and she continued to have GI bleeding. She had no abdominal pain or distention. No hematemesis. She is not taking any formal anticoagulants. She has chronic atrial fibrillation chronic lower extremity edema. She was admitted to the intensive care unit. She was resuscitated IV fluids. She already received a total of 2 L of IV fluids and 2 units of packed RBC and her current hemoglobin is at 10. She has had a previous colonoscopy was done 5 years ago and in outpatient surgical Center in [facility]. The results are not available yet. She was not told to have any diverticulosis or AV malformation. She was told to have colonic polyps. No 70 liver disease. No 70 peptic ulcer disease. She was slightly hypotensive today with a mean of 60 mmHg and she was given another liter of IV fluid bolus. GI is on the case in general surgeries on the case. The patient is currently being monitored intensively at the ICU. On 01/20/2020, the patient is being seen for a follow-up. The patient ICU for ongoing GI bleed. Note that yesterday overnight the patient continued to have recurrent GI bleeding. Note that she also had hemodynamic instability along with a GI bleed. Hemoglobin dropped down to 8 and the patient wasn't actively bleeding and the patient got transfused with 2 additional packed RBC. Her hemoglobin responded and is greater than 9 at this point in time. Noted the patient required IV fluids and she was given IV boluses and the patient currently is in normal state rate of 100 mL an hour and she is also on norepinephrine infusion at 40 mg per minute. Overall she has received a total of 4U packed RBC and she received an additional 2 L of IV fluids yesterday. She remains in atrial fibrillation. I have inserted a triple lumen catheter. Discussed the case with gastroenterology and the patient is going to have an EGD tomorrow to rule out upper GI source of bleeding and general surgeries on the case. Surgical intervention is needed at this point in time. She is nothing by mouth for now. Patient was reevaluated today on 01/21/2020, patient remains in the ICU, presented initially with significant GI blood loss, and Dr. Ascencio felt the patient may have either a diverticular bleed or AV malformation. Patient underwent EGD today, and it was basically nondiagnostic. Scheduled to have colonoscopy tomorrow. Patient is hemodynamically stable, off norepinephrine, she is on room air, IV fluid is at KVO, and she has not had any significant bowel movement since Tuesday. She is in A. fib with RVR, rate is 151, hence I started the patient on metoprolol. However considering the patient has low ejection fraction, will discontinue metoprolol, and will ask cardiology to evaluate on consultation. Her hemoglobin initially was 11.9, today her hemo globin is 7.3. Received a total of 4 units of packed RBCs since admission. Patient is in no distress. Objective - Vital Signs Vital signs: Vital Signs Temp 98.2 F 01/21/20 08:00 Pulse 112 H 01/21/20 13:00 Resp 20 01/21/20 13:00 BP 98/44 01/21/20 13:00 Pulse Ox 94 L 01/21/20 13:00 Intake & Output 01/20/20 01/21/20 01/21/20 18:59 06:59 18:59 Intake Total 9854.768 4621.888 839.461 Output Total 445 1500 740 Balance 1348.428 -93.112 99.461 Weight 117 kg 117 kg Intake: IV 1400 1200 740 Magnesium Sulfate-D5w Pmx 200 1 gm In Dextrose/Water 1 100ml.bag @ 100 mls/hr IVPB Q1H [facility] Rx#: [id number] Sodium Chloride 0.9% 1, 1200 1200 700 000 ml @ 100 mls/hr IV . Q10H [facility] Rx#:[id number] Intake, IV Titration 393.428 206.888 99.461 Amount Norepinephrine 4 mg In 393.428 206.888 99.461 Sodium Chloride 0.9% 250 ml @ 0.05 MCG/KG/MIN 21. 222 mls/hr IV .[id number] [facility] Rx#:[id number] Output: Urine 445 1500 740 Other: Voiding Method Indwelling Catheter Indwelling Catheter Indwelling Catheter - Exam Physical Exam: Revealed a 64-year-old female in no distress. Head: Atraumatic, normocephalic. HEENT:[Neck is supple.] [No neck masses.] [No thyromegaly.] [No JVD.] EOMI, no icterus. Chest: [Clear throughout, no crackles, no rhonchi, no wheezes.] Cardiac Exam: Irregular irregular rhythm. [Normal S1 and S2, no S3 gallop, no murmur.] Abdomen: Obese, [Soft, nontender, no megaly, no rebound, no guarding, normal bowel sounds.] Extremities: [No clubbing, no edema, no cyanosis.] Neurological Exam: [No focal neurologic deficit.] Alert and oriented 3. Psychiatric: Normal mood, affect and normal mental status examination. Skin: No rashes. - Labs CBC & Chem 7: 01/21/20 04:30 01/21/20 04:30 Labs: Abnormal Lab Results - Last 24 Hours (Table) 01/20/20 01/20/20 01/21/20 Range/Units 19:30 23:57 04:30 WBC 12.4 H 12.3 H (3.8-10.6) k/uL RBC 2.69 L 2.59 L (3.80-5.40) m/uL Hgb 7.4 L 7.3 L (11.4-16.0) gm/dL Hct 23.6 L 23.1 L (34.0-46.0) % RDW 17.5 H 17.5 H (11.5-15.5) % Neutrophils # 9.2 H (1.3-7.7) k/uL Sodium 136 L (137-145) mmol/L Chloride 113 H (98-107) mmol/L Creatinine 0.48 L (0.52-1.04) mg/dL Calcium 7.2 L (8.4-10.2) mg/dL 01/21/20 Range/Units 04:30 WBC 11.0 H (3.8-10.6) k/uL RBC 2.61 L (3.80-5.40) m/uL Hgb 7.3 L (11.4-16.0) gm/dL Hct 23.3 L (34.0-46.0) % RDW 17.6 H (11.5-15.5) % Neutrophils # (1.3-7.7) k/uL Sodium (137-145) mmol/L Chloride (98-107) mmol/L Creatinine (0.52-1.04) mg/dL Calcium (8.4-10.2) mg/dL Assessment and Plan Assessment: Impression: Strongly suspect acute lower GI bleeding. Possible diverticular bleed. Her EGD is nondiagnostic. Hypovolemic hypotension, responded to fluids and blood products. Required briefly a course of pressors presently off norepinephrine. Chronic atrial fibrillation. Presently in atrial fibrillation with RVR, will consult cardiology to evaluate. History of cardiomyopathy and LV dysfunction. EF is 20-25%. Moderate severe pulmonary hypertension on echocardiogram. Recommendation: Continue present supportive care measures. Cut down her IV fluid to KVO. Continue to monitor hemoglobin and hematocrit and transfuse for hemoglobin below 7. Reviewed the results of the EGD, and the patient is now scheduled for colonoscopy tomorrow. Continue Protonix. Cardiology to see on consultation for her cardiomyopathy, LV dysfunction, and atrial fibrillation with RVR. Chest x-ray was ordered. May consider diuretics based on the chest x-ray findings. We'll continue to follow Time with Patient: Less than 30
--- NOTE | 2020-01-21 14:27 | XR ---
EXAMINATION TYPE: XR chest 1V portable DATE OF EXAM: 01/21/2020 CLINICAL HISTORY: CHF. Pleural effusion. TECHNIQUE: Portable upright view of the chest obtained. COMPARISON: None FINDINGS: Patient is slightly rotated to the left. The cardiomediastinal silhouette is within normal limits for size. Pulmonary vasculature is normal. Mild right basilar atelectasis. Minimal blunting o f the right costophrenic angle. There is no focal air space opacity or pneumothorax seen. The osseous structures are intact. IMPRESSION: Minimal right costophrenic angle blunting may be small pleural effusion versus right basi lar atelectasis.
[2020-01-21 16:24] LABS: Anisocytosis Slight; HCT 22.1 % (34.0-46.0); Hypochromasia Marked; MCH 27.8 pg (25.0-35.0); MCHC 30.9 g/dL (31.0-37.0); Mean Platelet Volume 8.2; Platelet Count 231 k/uL (150-450); Poikilocytosis Slight; RBC 2.45 m/uL (3.80-5.40); RDW 18.1 % (11.5-15.5); WBC 9.5 k/uL (3.8-10.6)
[2020-01-21 16:28] LABS: HGB 6.8 gm/dL (11.4-16.0)
[2020-01-21] MEDS: LACTATED RINGERS 1,000 ML IV SCH (19:22)
[2020-01-21] MEDS ORDERED: ONDANSETRON 4 MG/2 ML VIAL IVP PRN (20:43)
--- NOTE | 2020-01-21 21:15 | P.PN ---
Subjective Progress Note Date: 01/21/20 Pt's Hgb this am stable at 7.3, she denies any further episodes of hematochezia, melena or abdominal pain. Pt for EGD today per GI, she declines colonoscopy at this time as does not want to undergo bowel prep. Objective - Vital Signs Vital signs: Vital Signs Temp 98.7 F 01/21/20 20:00 Pulse 108 H 01/21/20 20:00 Resp 17 01/21/20 20:00 BP 105/72 01/21/20 20:00 Pulse Ox 96 01/21/20 20:00 Intake & Output 01/21/20 01/21/20 01/22/20 06:59 18:59 06:59 Intake Total 8643.142 5619.461 200 Output Total 1500 1415 250 Balance -93.112 284.461 -50 Weight 117 kg 117 kg Intake: IV 1200 1240 200 Sodium Chloride 0.9% 1, 1200 1200 200 000 ml @ 20 mls/hr IV . Q24H [facility] Rx#:[id number] Intake, IV Titration 206.888 99.461 Amount Norepinephrine 4 mg In 206.888 99.461 Sodium Chloride 0.9% 250 ml @ 0.05 MCG/KG/MIN 21. 222 mls/hr IV .[id number] [facility] Rx#:[id number] Oral 360 Blood Product 0 Rc As-1 Unit 0 [id number] Output: Urine 1500 1415 250 Other: Voiding Method Indwelling Catheter Indwelling Catheter Indwelling Catheter - Exam Gen: well developed, well nourished female in NAD CV: RRR, no murmur Lungs: normal effort, clear throughout Abd: soft, nontender Neuro: alert and oriented x3 - Labs CBC & Chem 7: 01/21/20 15:57 01/21/20 04:30 Labs: Abnormal Lab Results - Last 24 Hours (Table) 01/18/20 01/20/20 01/21/20 Range/Units 21:30 23:57 04:30 WBC 12.3 H (3.8-10.6) k/uL RBC 2.59 L (3.80-5.40) m/uL Hgb 7.3 L (11.4-16.0) gm/dL Hct 23.1 L (34.0-46.0) % MCHC (31.0-37.0) g/dL RDW 17.5 H (11.5-15.5) % Sodium 136 L (137-145) mmol/L Chloride 113 H (98-107) mmol/L Creatinine 0.48 L (0.52-1.04) mg/dL Calcium 7.2 L (8.4-10.2) mg/dL Crossmatch See Detail 01/21/20 01/21/20 Range/Units 04:30 15:57 WBC 11.0 H (3.8-10.6) k/uL RBC 2.61 L 2.45 L (3.80-5.40) m/uL Hgb 7.3 L 6.8 L* (11.4-16.0) gm/dL Hct 23.3 L 22.1 L (34.0-46.0) % MCHC 30.9 L (31.0-37.0) g/dL RDW 17.6 H 18.1 H (11.5-15.5) % Sodium (137-145) mmol/L Chloride (98-107) mmol/L Creatinine (0.52-1.04) mg/dL Calcium (8.4-10.2) mg/dL Crossmatch Assessment and Plan (1) Acute blood loss anemia Current Visit: Yes Status: Acute Code(s): D62 - ACUTE POSTHEMORRHAGIC ANEMIA SNOMED Code(s): 731020333 (2) Hematochezia Current Visit: Yes Status: Acute Code(s): K92.1 - MELENA SNOMED Code(s): 733245033 Plan: Continue evaluation per GI; pt for EGD today and possibly colonoscopy depending on findings. Transfuse for Hgb <7. Continue home toprol.
[2020-01-22] MEDS ORDERED: METOPROLOL TARTRATE 5 MG/5 ML VIAL IVP PRN (00:32)
[2020-01-22 00:51] LABS: Anisocytosis Slight; Basophils # (A) 0.1 k/uL (0-0.2); Basophils % (A) 1 %; Eosinophils # (A) 0.3 k/uL (0-0.7); Eosinophils % (A) 3 %; HCT 28.5 % (34.0-46.0); Hypochromasia Marked; Lymphocytes % (A) 10 %; MCH 28.4 pg (25.0-35.0); MCHC 31.8 g/dL (31.0-37.0); MCV 89.5 fL (80.0-100.0); Mean Platelet Volume 8.4; Monocytes # (A) 0.4 k/uL (0-1.0); Monocytes % (A) 4 %; Neutrophils # (A) 7.9 k/uL (1.3-7.7); Neutrophils % (A) 82 %; Platelet Count 275 k/uL (150-450); Poikilocytosis Slight; RBC 3.19 m/uL (3.80-5.40); RDW 17.8 % (11.5-15.5); WBC 9.7 k/uL (3.8-10.6)
[2020-01-22 00:54] LABS: HGB 9.1 gm/dL (11.4-16.0)
[2020-01-22] MEDS ORDERED: DILTIAZEM DRIP BOLUS FROM BAG 1 MG SOLN IV ONE (01:04)
[2020-01-22] MEDS ORDERED: DILTIAZEM 125 MG in SODIUM CHLORIDE 0.9% 100 ML IV SCH (01:15)
[2020-01-22 06:03] LABS: Anisocytosis Slight; Basophils % (A) 1 %; Eosinophils # (A) 0.3 k/uL (0-0.7); Eosinophils % (A) 3 %; HCT 25.3 % (34.0-46.0); HGB 7.9 gm/dL (11.4-16.0); Hypochromasia Marked; Lymphocytes # (A) 1.3 k/uL (1.0-4.8); Lymphocytes % (A) 15 %; MCH 28.4 pg (25.0-35.0); MCHC 31.3 g/dL (31.0-37.0); MCV 90.6 fL (80.0-100.0); Mean Platelet Volume 8.8; Monocytes # (A) 0.4 k/uL (0-1.0); Monocytes % (A) 5 %; Neutrophils # (A) 6.2 k/uL (1.3-7.7); Neutrophils % (A) 74 %; Platelet Count 234 k/uL (150-450); Poikilocytosis Slight; RBC 2.79 m/uL (3.80-5.40); RDW 17.3 % (11.5-15.5); WBC 8.4 k/uL (3.8-10.6)
[2020-01-22 06:17] LABS: ALT 9 U/L (4-34); AST 29 U/L (14-36); African American GFR (CKD) >90 (>60 ml/min/1.73 sqM); Albumin 2.3 g/dL (3.5-5.0); Alkaline Phosphatase 55 U/L (38-126); Anion Gap 2 mmol/L; Blood Urea Nitrogen 15 mg/dL (7-17); Calcium 7.6 mg/dL (8.4-10.2); Carbon Dioxide 23 mmol/L (22-30); Chloride 111 mmol/L (98-107); Glucose 86 mg/dL (74-99); Non-African American GFR(CKD) >90 (>60 ml/min/1.73 sqM); Potassium 3.6 mmol/L (3.5-5.1); Sodium 136 mmol/L (137-145); Total Bilirubin 1.9 mg/dL (0.2-1.3); Total Protein 4.7 g/dL (6.3-8.2)
[2020-01-22] MEDS ORDERED: POTASSIUM CHLORIDE ER 20 MEQ TAB.ER PO SCH ×2 (07:00→20:30)
[2020-01-22] MEDS: PANTOPRAZOLE 40 MG/10 ML VIAL IVP SCH (08:22)
[2020-01-22] MEDS: METOPROLOL TARTRATE 25 MG TAB PO SCH ×2 (08:22→20:29)
[2020-01-22] MEDS ORDERED: PROPOFOL 10 MG/ML 20 ML VIAL IV ONE (09:58)
[2020-01-22] MEDS ORDERED: IV FLUID CONTINUATION 1,000 ML IV ONE (09:58)
--- NOTE | 2020-01-22 10:50 | P.PCN ---
Date of Procedure: 01/22/20 Description of Procedure: BRIEF HISTORY: 64-year-old female who presented to the emergency department with multiple episodes of painless bright red blood per rectum with associated fall in hemoglobin currently at 10.1 status post 2 units of blood cells. Last colonoscopy 5 years ago significant for polypectomy per report from the patient. She denies any history of GI bleed, peptic ulcer disease, NSAID use, or prior upper endoscopy. She was taken for EGD with findings of no active bleeding or old blood or pathology to explain symptoms with only mild gastritis seen. PROCEDURE PERFORMED: Colonoscopy with polypectomy and Endo Clip placement. PREOPERATIVE DIAGNOSIS: GI hemorrhage, anemia of acute blood loss. ESTIMATED BLOOD LOSS: Minimal. IV sedation per Anesthesia. PROCEDURE: After informed consent was obtained, the patient, was brought into the endoscopy unit. IV sedation was administered by Anesthesia under continuous monitoring. Digital rectal examination was normal. Initially the Olympus CF-190 flexible video colonoscope was then inserted in the rectum, gradually advanced into the cecum without any difficulty. Careful examination was performed as the scope was gradually being withdrawn. Ileocecal valve and the appendiceal orifice were visualized and appeared normal, the terminal ileum was intubated and appeared normal with no old blood or active bleeding noted. Prep was good. Mucosa of the cecum, ascending colon, transverse colon, descending colon, sigmoid colon, and rectum appeared normal. Retroflexion was performed in the rectum and no lesions were seen, low-grade internal hemorrhoids noted. 15 mm pedunculated sigmoid colon polyp located 30 cm from the anal verge was removed with hot snare polypectomy with Endo Clip placement in the setting of recent GI bleed. Small to large mouth diverticula noted throughout the colon. The patient tolerated the procedure well. IMPRESSION: No active bleeding, with old hemolyzed blood noted throughout the entire colon but no old blood or active bleeding in the small bowel on intubation of the t erminal ileum. Moderate pandiverticulosis. Mild internal hemorrhoids. Pedunculated sigmoid colon polyp removed with hot snare polypectomy with Endo Clip placement. RECOMMENDATIONS: Findings of this examination were discussed with the patient in the ICU team. Okay to resume liquid diet. Continue to monitor hemoglobin and hematocrit and transfuse as needed. Patient will need repeat colonoscopy in 3 years for high- risk colon polyp.
--- NOTE | 2020-01-22 12:29 | P.PN ---
Progress Note - Text Progress Note Date: 01/22/20 Attempted to see patient today, however patient is down for lower endoscopy. Will follow with results and provide recommendations.
--- NOTE | 2020-01-22 13:44 | P.PN ---
Subjective Progress Note Date: 01/22/20 Principal diagnosis: Acute GI bleeding 64-year-old. Patient came into the hospital after she had a sudden onset bloody stool at home and she was very much concerned that the patient continued to have episodes of bloody stool throughout the night. She came into the emergency room and she continued to have GI bleeding. She had no abdominal pain or distention. No hematemesis. She is not taking any formal anticoagulants. She has chronic atrial fibrillation chronic lower extremity edema. She was admitted to the intensive care unit. She was resuscitated IV fluids. She already received a total of 2 L of IV fluids and 2 units of packed RBC and her current hemoglobin is at 10. She has had a previous colonoscopy was done 5 years ago and in outpatient surgical Center in [facility]. The results are not available yet. She was not told to have any diverticulosis or AV malformation. She was told to have colonic polyps. No 70 liver disease. No 70 peptic ulcer disease. She was slightly hypotensive today with a mean of 60 mmHg and she was given another liter of IV fluid bolus. GI is on the case in general surgeries on the case. The patient is currently being monitored intensively at the ICU. On 01/20/2020, the patient is being seen for a follow-up. The patient ICU for ongoing GI bleed. Note that yesterday overnight the patient continued to have recurrent GI bleeding. Note that she also had hemodynamic instability along with a GI bleed. Hemoglobin dropped down to 8 and the patient wasn't actively bleeding and the patient got transfused with 2 additional packed RBC. Her hemoglobin responded and is greater than 9 at this point in time. Noted the patient required IV fluids and she was given IV boluses and the patient currently is in normal state rate of 100 mL an hour and she is also on norepinephrine infusion at 40 mg per minute. Overall she has received a total of 4U packed RBC and she received an additional 2 L of IV fluids yesterday. She remains in atrial fibrillation. I have inserted a triple lumen catheter. Discussed the case with gastroenterology and the patient is going to have an EGD tomorrow to rule out upper GI source of bleeding and general surgeries on the case. Surgical intervention is needed at this point in time. She is nothing by mouth for now. Patient was reevaluated today on 01/21/2020, patient remains in the ICU, presented initially with significant GI blood loss, and Dr. Ascencio felt the patient may have either a diverticular bleed or AV malformation. Patient underwent EGD today, and it was basically nondiagnostic. Scheduled to have colonoscopy tomorrow. Patient is hemodynamically stable, off norepinephrine, she is on room air, IV fluid is at KVO, and she has not had any significant bowel movement since Tuesday. She is in A. fib with RVR, rate is 151, hence I started the patient on metoprolol. However considering the patient has low ejection fraction, will discontinue metoprolol, and will ask cardiology to evaluate on consultation. Her hemoglobin initially was 11.9, today her hemo globin is 7.3. Received a total of 4 units of packed RBCs since admission. Patient is in no distress. Patient was reevaluated today on 01/22/20, remains in the ICU, patient is doing quite well, she is in atrial fibrillation, on Lopressor, patient had no further bleeding overnight, but she did receive a total of 5 units of packed RBCs since admission. Patient underwent colonoscopy today, and there was no active bleeding. There was evidence of old hemolyzed blood noted throughout the entire colon, there was also evidence of blood in the small bowel upon intubation of the terminal ileum. There was moderate and diverticulosis, no active bleeding again, and there was a sigmoid colon polyp removed. So clearly the colonoscopy is nondiagnostic. But ruled out at least active bleeding in the large bowel. Most likely based on the note from gastroenterology that the bleeding was from the small bowel. Hence we will continue to monitor the patient for any more bleeding, there was no mention of recommendation of capsule endoscopy on this patient. Hemoglobin today is 7.9. Objective - Vital Signs Vital signs: Vital Signs Temp 97 F L 01/22/20 12:00 Pulse 90 01/22/20 13:15 Resp 16 01/22/20 13:15 BP 112/51 01/22/20 13:15 Pulse Ox 96 01/22/20 13:00 Intake & Output 01/21/20 01/22/20 01/22/20 18:59 06:59 18:59 Intake Total 3281.724 0496 515 Output Total 1415 1875 400 Balance 284.461 -365 115 Weight 117 kg Intake: IV 1240 1200 480 Sodium Chloride 0.9% 1, 1200 1200 180 000 ml @ 20 mls/hr IV . Q24H [facility] Rx#:[id number] Intake, IV Titration 99.461 35 Amount Diltiazem 125 mg In 35 Sodium Chloride 0.9% 100 ml @ 5 MG/HR 5 mls/hr IV .Q24H [facility] Rx#:[id number] Norepinephrine 4 mg In 99.461 Sodium Chloride 0.9% 250 ml @ 0.05 MCG/KG/MIN 21. 222 mls/hr IV .[id number] [facility] Rx#:[id number] Oral 360 Blood Product 0 310 Rc As-1 Unit 0 310 [id number] Output: Urine 1415 1875 400 Other: Voiding Method Indwelling Catheter Indwelling Catheter Indwelling Catheter - Exam Physical Exam: Revealed a 64-year-old female in no distress. Head: Atraumatic, normocephalic. HEENT:[Neck is supple.] [No neck masses.] [No thyromegaly.] [No JVD.] EOMI, no icterus. Chest: [Clear throughout, no crackles, no rhonchi, no wheezes.] Cardiac Exam: Irregular irregular rhythm. [Normal S1 and S2, no S3 gallop, no murmur.] Abdomen: Obese, [Soft, nontender, no megaly, no rebound, no guarding, normal bowel sounds.] Extremities: [No clubbing, no edema, no cyanosis.] Neurological Exam: [No focal neurologic deficit.] Alert and oriented 3. Psychiatric: Normal mood, affect and normal mental status examination. Skin: No rashes. - Labs CBC & Chem 7: 01/22/20 05:14 01/22/20 05:14 Labs: Abnormal Lab Results - Last 24 Hours (Table) 01/18/20 01/21/20 01/22/20 Range/Units 21:30 15:57 00:28 RBC 2.45 L 3.19 L (3.80-5.40) m/uL Hgb 6.8 L* 9.1 L D (11.4-16.0) gm/dL Hct 22.1 L 28.5 L (34.0-46.0) % MCHC 30.9 L (31.0-37.0) g/dL RDW 18.1 H 17.8 H (11.5-15.5) % Neutrophils # 7.9 H (1.3-7.7) k/uL Sodium (137-145) mmol/L Chloride (98-107) mmol/L Calcium (8.4-10.2) mg/dL Total Bilirubin (0.2-1.3) mg/dL Total Protein (6.3-8.2) g/dL Albumin (3.5-5.0) g/dL Crossmatch See Detail 01/22/20 01/22/20 Range/Units 05:14 05:14 RBC 2.79 L (3.80-5.40) m/uL Hgb 7.9 L (11.4-16.0) gm/dL Hct 25.3 L (34.0-46.0) % MCHC (31.0-37.0) g/dL RDW 17.3 H (11.5-15.5) % Neutrophils # (1.3-7.7) k/uL Sodium 136 L (137-145) mmol/L Chloride 111 H (98-107) mmol/L Calcium 7.6 L (8.4-10.2) mg/dL Total Bilirubin 1.9 H (0.2-1.3) mg/dL Total Protein 4.7 L (6.3-8.2) g/dL Albumin 2.3 L (3.5-5.0) g/dL Crossmatch Assessment and Plan Assessment: Impression: Suspect small bowel GI bleeding.. Her EGD is nondiagnostic. Colonoscopy is also nondiagnostic. Hypovolemic hypotension, responded to fluids and blood products. Required briefly a course of pressors presently off norepinephrine. Chronic atrial fibrillation. Presently in atrial fibrillation with RVR, being followed by cardiology. History of cardiomyopathy and LV dysfunction. EF is 20-25%. Moderate severe pulmonary hypertension on echocardiogram. Status post colonoscopy, basically nondiagnostic, still does not explain the exact source of the bleeding. This is most likely small bowel in nature. Recommendation: Continue present supportive care measures. Continue to monitor hemoglobin and hematocrit and transfuse for hemoglobin below 7. Reviewed the results of the EGD, and colonoscopy, both are nondiagnostic. Continue Protonix. Continue to hold anticoagulation therapy. We'll continue to follow Time with Patient: Less than 30
[2020-01-22] MEDS: NOREPINEPHRINE 4 MG in SODIUM CHLORIDE 0.9% 250 ML IV SCH ×2 (14:07→22:24)
--- NOTE | 2020-01-22 14:36 | CONS ---
CONSULTATION Mrs. High is a 64-year-old female who presented to the hospital with evidence of GI bleeding of unclear etiology. She had sudden onset of bloody stool at home. Cardiology consultation was requested because of atrial fibrillation according to the patient. She was recently diagnosed with atrial fibrillation and cardiomyopathy, although details of that workup is not available to me. She has no prior history of congestive heart failure or angina pectoris. She denies any prior history of myocardial infarction. She is not very active physically. She has some dyspnea on exertion. She has chronic peripheral edema and no clear PND and no orthopnea. She has no palpitation and no syncope. She has mild dizziness. She underwent an echocardiogram on the January 18 that revealed a severely impaired left ventricular systolic function with ejection fraction 20% to 25% with mild to moderate aortic and moderate severe mitral and tricuspid regurgitation. Her right-sided pressure was 46 mmHg. Patient has no history of diabetes, she is a nonsmoker. She has a history of hypertension. Her lipid profile is not available. MEDICATION: At home included metoprolol succinate 25 mg daily, aspirin once a day, lisinopril 20 mg daily, and furosemide 60 mg daily. REVIEW OF SYSTEMS: RESPIRATORY SYSTEM: She had dyspnea on exertion. No recent wheezing or cough. GI SYSTEM: She has the GI bleeding but no prior documented history of bleeding in the past. No nausea nor vomiting. SYSTEM: No history of dysuria or hematuria. NERVOUS SYSTEM: No documented history of stroke or seizure. PHYSICAL EXAMINATION: She is a 64-year-old female, alert, oriented, in no distress, blood pressure 111/40 with a heart rate in the 80s to low 100s. She was tachycardic yesterday, she was started on IV Cardizem. HEAD: Normocephalic. EYES: Sclerae nonicteric. NECK: Good upstroke, no bruit, no jugular venous distention. LUNGS: Clear to auscultation with decreased breath sounds at the bases. HEART: Irregular, regular S1, S2. No S3 with systolic murmur, ejection type heard at the base. No diastolic murmur, no rub. ABDOMEN: Soft, obese, nontender. Positive bowel sounds no organomegaly. EXTREMITIES" +1 edema. LAB DATA: Revealed a hemoglobin of 7.9. She was down to 6.8 earlier. Her platelets count 234. BUN and creatinine 15 and 0.52. Her total bilirubin is 1.9, which is down. Her EKG revealed atrial fibrillation with rare PVCs and nonspecific ST-T wave changes. Her chest x-ray shows a pleural effusion. IMPRESSION: 1. Acute GI bleeding, etiology unclear. Workup in progress. 2. Atrial fibrillation, persistent. 3. Cardiomyopathy of unclear duration and etiology. 4. Anemia related to the GI bleeding. 5. Valvular disease with mitral and tricuspid regurgitation of unknown duration. RECOMMENDATION: From the cardiac standpoint, I will stop her IV Cardizem, start her back on a beta aaron. I will hold on ALFA inhibitor at this time because of her low blood pressure. I will try to obtain the prior workup that was done as outpatient. The patient would require full cardiac workup down the road, but at this time, I will hold until we clarify the issue of the bleeding. She will need to be anticoagulated. Thank you for this consult. Will follow with you. SHEA / AYDE: [id number] /
[2020-01-22 17:07] LABS: Anisocytosis Slight; HCT 23.4 % (34.0-46.0); HGB 7.3 gm/dL (11.4-16.0); Hypochromasia Moderate; MCH 28.4 pg (25.0-35.0); MCHC 31.2 g/dL (31.0-37.0); MCV 90.8 fL (80.0-100.0); Mean Platelet Volume 8.3; Platelet Count 225 k/uL (150-450); Poikilocytosis Slight; RBC 2.58 m/uL (3.80-5.40); RDW 17.9 % (11.5-15.5); WBC 7.8 k/uL (3.8-10.6)
[2020-01-22] MEDS ORDERED: POTASSIUM CHLORIDE 10 MEQ in WATER FOR INJECTION 1 100ML.BAG IVPB SCH (19:00)
[2020-01-22] MEDS ORDERED: Potassium Replacement Protocol 1 EACH MISC MISCELLANE PRN (19:40)
[2020-01-22] MEDS: SODIUM CHLORIDE 0.9% 1,000 ML IV SCH (20:30)
--- NOTE | 2020-01-22 21:55 | P.PN ---
Subjective Progress Note Date: 01/22/20 EGD with mild gastritis, her Hgb dropped again yesterday and she was transfused another unit PRBC. Hgb stable this am at 7.9. Pt for colonoscopy with GI today. She denies any further hematochezia or melena and no abdominal pain. Objective - Vital Signs Vital signs: Vital Signs Temp 97.8 F 01/22/20 20:00 Pulse 92 01/22/20 21:00 Resp 20 01/22/20 21:00 BP 88/57 01/22/20 21:00 Pulse Ox 95 01/22/20 21:00 Intake & Output 01/22/20 01/22/20 01/23/20 06:59 18:59 06:59 Intake Total 1510 995 60 Output Total 1875 685 100 Balance -365 310 -40 Intake: IV 1200 620 60 Sodium Chloride 0.9% 1, 1200 320 60 000 ml @ 20 mls/hr IV . Q24H DARINEL Rx#:[id number] Intake, IV Titration 35 Amount Diltiazem 125 mg In 35 Sodium Chloride 0.9% 100 ml @ 5 MG/HR 5 mls/hr IV .Q24H DARINEL Rx#:[id number] Oral 340 Blood Product 310 Rc As-1 Unit 310 [id number] Output: Urine 1875 685 100 Other: Voiding Method Indwelling Catheter Indwelling Catheter Indwelling Catheter - Exam Gen: well developed, well nourished female in NAD CV: RRR, no murmur Lungs: normal effort, clear throughout Abd: soft, nontender Neuro: alert and oriented x3 - Labs CBC & Chem 7: 01/22/20 16:55 01/22/20 16:55 Labs: Abnormal Lab Results - Last 24 Hours (Table) 01/18/20 01/22/20 01/22/20 Range/Units 21:30 00:28 05:14 RBC 3.19 L 2.79 L (3.80-5.40) m/uL Hgb 9.1 L D 7.9 L (11.4-16.0) gm/dL Hct 28.5 L 25.3 L (34.0-46.0) % RDW 17.8 H 17.3 H (11.5-15.5) % Neutrophils # 7.9 H (1.3-7.7) k/uL Sodium (137-145) mmol/L Chloride (98-107) mmol/L Calcium (8.4-10.2) mg/dL Total Bilirubin (0.2-1.3) mg/dL Total Protein (6.3-8.2) g/dL Albumin (3.5-5.0) g/dL Crossmatch See Detail 01/22/20 01/22/20 Range/Units 05:14 16:55 RBC 2.58 L (3.80-5.40) m/uL Hgb 7.3 L (11.4-16.0) gm/dL Hct 23.4 L (34.0-46.0) % RDW 17.9 H (11.5-15.5) % Neutrophils # (1.3-7.7) k/uL Sodium 136 L (137-145) mmol/L Chloride 111 H (98-107) mmol/L Calcium 7.6 L (8.4-10.2) mg/dL Total Bilirubin 1.9 H (0.2-1.3) mg/dL Total Protein 4.7 L (6.3-8.2) g/dL Albumin 2.3 L (3.5-5.0) g/dL Crossmatch Assessment and Plan (1) Acute blood loss anemia Current Visit: Yes Status: Acute Code(s): D62 - ACUTE POSTHEMORRHAGIC ANEMIA SNOMED Code(s): 489042926 (2) Hematochezia Current Visit: Yes Status: Acute Code(s): K92.1 - MELENA SNOMED Code(s): 284734144 (3) Colon polyp Current Visit: Yes Status: Acute Code(s): K63.5 - POLYP OF COLON SNOMED Code(s): 87673857 Plan: Continue evaluation per GI; pt for Colonoscopy depending on findings. Transfuse for Hgb <7. Continue home toprol.
[2020-01-23 04:24] LABS: Anisocytosis Slight; HCT 24.8 % (34.0-46.0); HGB 7.9 gm/dL (11.4-16.0); Hypochromasia Marked; MCH 29.3 pg (25.0-35.0); MCHC 31.8 g/dL (31.0-37.0); MCV 92.1 fL (80.0-100.0); Mean Platelet Volume 8.3; Platelet Count 264 k/uL (150-450); Poikilocytosis Slight; RBC 2.69 m/uL (3.80-5.40)
[2020-01-23 04:30] LABS: African American GFR (CKD) >90 (>60 ml/min/1.73 sqM); Anion Gap 2 mmol/L; Blood Urea Nitrogen 12 mg/dL (7-17); Calcium 7.6 mg/dL (8.4-10.2); Carbon Dioxide 22 mmol/L (22-30); Chloride 112 mmol/L (98-107); Glucose 82 mg/dL (74-99); Non-African American GFR(CKD) >90 (>60 ml/min/1.73 sqM); Potassium 3.8 mmol/L (3.5-5.1); Sodium 136 mmol/L (137-145)
[2020-01-23 05:04] LABS: Eosinophils # (M) 0.42 k/uL (0-0.7); Lymphocytes # (M) 1.61 k/uL (1.0-4.8); Monocytes # (M) 0.42 k/uL (0-1.0); Neutrophils # (M) 4.55 k/uL (1.3-7.7); Neutrophils % (M) 65 %; Nucleated Red Blood Cells 0 /100 WBC (0-0); Total Cells Counted 100
[2020-01-23 05:08] LABS: Polychromasia Present
[2020-01-23] MEDS ORDERED: POTASSIUM CHLORIDE ER 20 MEQ TAB.ER PO SCH (07:00)
[2020-01-23] MEDS: SPIRONOLACTONE 25 MG TAB PO SCH (08:05)
[2020-01-23] MEDS: METOPROLOL TARTRATE 25 MG TAB PO SCH ×2 (08:05→20:24)
[2020-01-23] MEDS: PANTOPRAZOLE 40 MG/10 ML VIAL IVP SCH (08:05)
--- NOTE | 2020-01-23 08:51 | PN ---
PROGRESS NOTE Mrs. High is a 64-year-old female who presented with evidence of GI bleeding. She has been diagnosed with atrial fibrillation recently and was told that she had a cardiomyopathy. Her echocardiogram that was done here showed ejection fraction 20% to 25% with significant mitral and tricuspid regurgitation. She is feeling reasonably well this morning. She is only complaining of not having a bowel movement. She denies any symptoms of chest pain. She denies any dizziness or palpitation. Her ventricular response has been under control and her blood pressure is stable. She denies any nausea or vomiting. She continues to be on metoprolol tartrate 25 mg twice a day. PHYSICAL EXAMINATION: Blood pressure running in the low 100s with a heart rate in the 80s. LUNGS: Clear. HEART: Irregular, regular, S1, S2. No S3 with a holosystolic murmur in the apex. ABDOMEN: Soft, nontender. EXTREMITIES: No edema. LAB DATA: Revealed a hemoglobin of 7.9. BUN and creatinine 12 and 0.59, potassium 3.8. IMPRESSION: 1. GI bleeding. Workup in progress. The etiology unclear. 2. Atrial fibrillation was diagnosed as an outpatient according to the patient. 3. Cardiomyopathy of unclear duration and etiology. 4. Mitral regurgitation and tricuspid regurgitation. RECOMMENDATION: Will continue on the present dose of beta aaron, increase her activity. If her blood pressure is stable, I will add an ALFA inhibitor. Anticoagulation is on hold because of the recent GI bleeding and severe anemia. I will try to obtain the results of her prior workup as an outpatient. I will add to her regimen Aldactone 25 mg daily. Depending on her progress, further recommendation will be made. MMODL / IJN: [id number] /
[2020-01-23 10:33] VITALS: BMI 46.3
--- NOTE | 2020-01-23 13:14 | P.PN ---
Subjective Progress Note Date: 01/23/20 Principal diagnosis: Acute GI bleeding 64-year-old. Patient came into the hospital after she had a sudden onset bloody stool at home and she was very much concerned that the patient continued to have episodes of bloody stool throughout the night. She came into the emergency room and she continued to have GI bleeding. She had no abdominal pain or distention. No hematemesis. She is not taking any formal anticoagulants. She has chronic atrial fibrillation chronic lower extremity edema. She was admitted to the intensive care unit. She was resuscitated IV fluids. She already received a total of 2 L of IV fluids and 2 units of packed RBC and her current hemoglobin is at 10. She has had a previous colonoscopy was done 5 years ago and in outpatient surgical Center in [facility]. The results are not available yet. She was not told to have any diverticulosis or AV malformation. She was told to have colonic polyps. No 70 liver disease. No 70 peptic ulcer disease. She was slightly hypotensive today with a mean of 60 mmHg and she was given another liter of IV fluid bolus. GI is on the case in general surgeries on the case. The patient is currently being monitored intensively at the ICU. On 01/20/2020, the patient is being seen for a follow-up. The patient ICU for ongoing GI bleed. Note that yesterday overnight the patient continued to have recurrent GI bleeding. Note that she also had hemodynamic instability along with a GI bleed. Hemoglobin dropped down to 8 and the patient wasn't actively bleeding and the patient got transfused with 2 additional packed RBC. Her hemoglobin responded and is greater than 9 at this point in time. Noted the patient required IV fluids and she was given IV boluses and the patient currently is in normal state rate of 100 mL an hour and she is also on norepinephrine infusion at 40 mg per minute. Overall she has received a total of 4U packed RBC and she received an additional 2 L of IV fluids yesterday. She remains in atrial fibrillation. I have inserted a triple lumen catheter. Discussed the case with gastroenterology and the patient is going to have an EGD tomorrow to rule out upper GI source of bleeding and general surgeries on the case. Surgical intervention is needed at this point in time. She is nothing by mouth for now. Patient was reevaluated today on 01/21/2020, patient remains in the ICU, presented initially with significant GI blood loss, and Dr. Ascencio felt the patient may have either a diverticular bleed or AV malformation. Patient underwent EGD today, and it was basically nondiagnostic. Scheduled to have colonoscopy tomorrow. Patient is hemodynamically stable, off norepinephrine, she is on room air, IV fluid is at KVO, and she has not had any significant bowel movement since Tuesday. She is in A. fib with RVR, rate is 151, hence I started the patient on metoprolol. However considering the patient has low ejection fraction, will discontinue metoprolol, and will ask cardiology to evaluate on consultation. Her hemoglobin initially was 11.9, today her hemo globin is 7.3. Received a total of 4 units of packed RBCs since admission. Patient is in no distress. Patient was reevaluated today on 01/22/20, remains in the ICU, patient is doing quite well, she is in atrial fibrillation, on Lopressor, patient had no further bleeding overnight, but she did receive a total of 5 units of packed RBCs since admission. Patient underwent colonoscopy today, and there was no active bleeding. There was evidence of old hemolyzed blood noted throughout the entire colon, there was also evidence of blood in the small bowel upon intubation of the terminal ileum. There was moderate and diverticulosis, no active bleeding again, and there was a sigmoid colon polyp removed. So clearly the colonoscopy is nondiagnostic. But ruled out at least active bleeding in the large bowel. Most likely based on the note from gastroenterology that the bleeding was from the small bowel. Hence we will continue to monitor the patient for any more bleeding, there was no mention of recommendation of capsule endoscopy on this patient. Hemoglobin today is 7.9. Reevaluated today on 01/23/20, remains in the ICU, patient is hemodynamically stable, no further episodes of bleeding. Hemoglobin remained stable, 7.9 today, it was 7.9 yesterday. Electrolytes and basic metabolic profile is normal. And no clinical evidence of GI bleeding in the last 24 hours. Hence I plan to tra nsfer the patient out of the ICU to a regular medical floor, and monitor over the next 24 hours and possibly consider discharging the patient home if remains stable. Objective - Vital Signs Vital signs: Vital Signs Temp 98.0 F 01/23/20 04:00 Pulse 88 01/23/20 12:00 Resp 21 01/23/20 12:00 BP 100/53 01/23/20 10:00 Pulse Ox 95 01/23/20 08:00 Intake & Output 01/22/20 01/23/20 01/23/20 18:59 06:59 18:59 Intake Total 995 240 840 Output Total 685 380 215 Balance 310 -140 625 Weight 122.3 kg 122.3 kg Intake: IV 620 240 120 Sodium Chloride 0.9% 1, 320 240 120 000 ml @ 20 mls/hr IV . Q24H DARINEL Rx#:[id number] Intake, IV Titration 35 Amount Diltiazem 125 mg In 35 Sodium Chloride 0.9% 100 ml @ 5 MG/HR 5 mls/hr IV .Q24H DARINEL Rx#:[id number] Oral 340 720 Output: Urine 685 380 215 Other: Voiding Method Indwelling Catheter Indwelling Catheter Indwelling Catheter - Exam Physical Exam: Revealed a 64-year-old female in no distress. Head: Atraumatic, normocephalic. HEENT:[Neck is supple.] [No neck masses.] [No thyromegaly.] [No JVD.] EOMI, no icterus. Chest: [Clear throughout, no crackles, no rhonchi, no wheezes.] Cardiac Exam: Irregular irregular rhythm. [Normal S1 and S2, no S3 gallop, no murmur.] Abdomen: Obese, [Soft, nontender, no megaly, no rebound, no guarding, normal bowel sounds.] Extremities: [No clubbing, no edema, no cyanosis.] Neurological Exam: [No focal neurologic deficit.] Alert and oriented 3. Psychiatric: Normal mood, affect and normal mental status examination. Skin: No rashes. - Labs CBC & Chem 7: 01/23/20 03:47 01/23/20 04:02 Labs: Abnormal Lab Results - Last 24 Hours (Table) 01/22/20 01/23/20 01/23/20 Range/Units 16:55 03:47 04:02 RBC 2.58 L 2.69 L (3.80-5.40) m/uL Hgb 7.3 L 7.9 L (11.4-16.0) gm/dL Hct 23.4 L 24.8 L (34.0-46.0) % RDW 17.9 H 18.0 H (11.5-15.5) % Sodium 136 L (137-145) mmol/L Chloride 112 H (98-107) mmol/L Calcium 7.6 L (8.4-10.2) mg/dL Assessment and Plan Assessment: Impression: Suspect small bowel GI bleeding.. Her EGD is nondiagnostic. Colonoscopy is also nondiagnostic. Hypovolemic hypotension, responded to fluids and blood products. Chronic atrial fibrillation. Rate seems to be well-controlled. History of cardiomyopathy and LV dysfunction. EF is 20-25%. Moderate severe pulmonary hypertension on echocardiogram. Status post colonoscopy, basically nondiagnostic, still does not explain the exact source of the bleeding. This is most likely small bowel in nature. Recommendation: Continue present supportive care measures. Transfer patient out of the ICU to a regular medical floor. Continue to monitor hemoglobin and hematocrit and transfuse for hemoglobin below 7. Continue Protonix. Continue to hold anticoagulation therapy. We'll continue to follow on when necessary basis. Time with Patient: Less than 30
--- NOTE | 2020-01-23 13:46 | P.PN ---
Subjective Progress Note Date: 01/23/20 Patient seen and examined at bedside. Did have colonoscopy yesterday. No further bloody bowel movements. Objective - Vital Signs Vital signs: Vital Signs Temp 98.0 F 01/23/20 04:00 Pulse 88 01/23/20 12:00 Resp 21 01/23/20 12:00 BP 100/53 01/23/20 10:00 Pulse Ox 95 01/23/20 08:00 Intake & Output 01/22/20 01/23/20 01/23/20 18:59 06:59 18:59 Intake Total 995 240 840 Output Total 685 380 215 Balance 310 -140 625 Weight 122.3 kg 122.3 kg Intake: IV 620 240 120 Sodium Chloride 0.9% 1, 320 240 120 000 ml @ 20 mls/hr IV . Q24H DARINEL Rx#:[id number] Intake, IV Titration 35 Amount Diltiazem 125 mg In 35 Sodium Chloride 0.9% 100 ml @ 5 MG/HR 5 mls/hr IV .Q24H DARINEL Rx#:[id number] Oral 340 720 Output: Urine 685 380 215 Other: Voiding Method Indwelling Catheter Indwelling Catheter Indwelling Catheter - Constitutional General appearance: Present: cooperative, no acute distress - Respiratory Details: No difficulty with respiration - Gastrointestinal Gastrointestinal Comment(s): Soft, nontender, nondistended, no rebound, no guarding - Psychiatric Psychiatric: Present: A&O x's 3 - Labs CBC & Chem 7: 01/23/20 03:47 01/23/20 04:02 Labs: Abnormal Lab Results - Last 24 Hours (Table) 01/22/20 01/23/20 01/23/20 Range/Units 16:55 03:47 04:02 RBC 2.58 L 2.69 L (3.80-5.40) m/uL Hgb 7.3 L 7.9 L (11.4-16.0) gm/dL Hct 23.4 L 24.8 L (34.0-46.0) % RDW 17.9 H 18.0 H (11.5-15.5) % Sodium 136 L (137-145) mmol/L Chloride 112 H (98-107) mmol/L Calcium 7.6 L (8.4-10.2) mg/dL Assessment and Plan Plan: 64-year-old female with GI bleed - No bloody bowel movements overnight - Colonoscopy with no active bleed. - Continue supportive management, transfuse as necessary - No plan for surgical management at this time. Please call for any further recommendations.
[2020-01-23] MEDS: NOREPINEPHRINE 4 MG in SODIUM CHLORIDE 0.9% 250 ML IV SCH (19:16)
[2020-01-23] MEDS: LACTATED RINGERS 1,000 ML IV SCH (19:17)
[2020-01-23] MEDS: SODIUM CHLORIDE 0.9% 1,000 ML IV SCH (20:24)
--- NOTE | 2020-01-23 21:02 | P.PN ---
Subjective Progress Note Date: 01/23/20 Principal diagnosis: GI bleed, anemia of acute blood loss Patient is seen sitting bedside today she said no blood per rectum bowel movements since her colonoscopy. She is passing gas. She is tolerating full liquid diet. Objective - Vital Signs Vital signs: Vital Signs Temp 98.0 F 01/23/20 04:00 Pulse 88 01/23/20 12:00 Resp 21 01/23/20 12:00 BP 100/53 01/23/20 10:00 Pulse Ox 95 01/23/20 08:00 Intake & Output 01/22/20 01/23/20 01/23/20 18:59 06:59 18:59 Intake Total 995 240 840 Output Total 685 380 215 Balance 310 -140 625 Weight 122.3 kg 122.3 kg Intake: IV 620 240 120 Sodium Chloride 0.9% 1, 320 240 120 000 ml @ 20 mls/hr IV . Q24H DARINEL Rx#:[id number] Intake, IV Titration 35 Amount Diltiazem 125 mg In 35 Sodium Chloride 0.9% 100 ml @ 5 MG/HR 5 mls/hr IV .Q24H DARINEL Rx#:[id number] Oral 340 720 Output: Urine 685 380 215 Other: Voiding Method Indwelling Catheter Indwelling Catheter Indwelling Catheter - Exam On physical examination, patient appears comfortable in no apparent distress. HEAD: Normocephalic, atraumatic. EYES: No scleral icterus. No conjunctival injection. MOUTH: No lesions, tongue midline. NECK: Trachea midline, no gross abnormalities. ABDOMEN: Soft, obese. Bowel sounds are positive. No organomegaly. No guarding or rigidity. EXTREMITIES: No pedal edema. SKIN: No rashes, no jaundice. NEUROLOGIC: Alert and oriented x3. No focal deficits. - Labs CBC & Chem 7: 01/23/20 03:47 01/23/20 04:02 Labs: Abnormal Lab Results - Last 24 Hours (Table) 01/22/20 01/23/20 01/23/20 Range/Units 16:55 03:47 04:02 RBC 2.58 L 2.69 L (3.80-5.40) m/uL Hgb 7.3 L 7.9 L (11.4-16.0) gm/dL Hct 23.4 L 24.8 L (34.0-46.0) % RDW 17.9 H 18.0 H (11.5-15.5) % Sodium 136 L (137-145) mmol/L Chloride 112 H (98-107) mmol/L Calcium 7.6 L (8.4-10.2) mg/dL Assessment and Plan (1) Hematochezia Narrative/Plan: 64-year-old female who presented to the emergency department with multiple episodes of painless bright red blood per rectum with associated fall in hemoglobin currently at 10.1 status post 2 units of blood cells. Last colonoscopy 5 years ago significant for polypectomy per report from the patient. She denies any history of GI bleed, peptic ulcer disease, NSAID use, or prior upper endoscopy. Suspected to be diverticular in nature as EGD significant only for gastritis and colonoscopy significant for elias diverticulosis with old blood throughout the colon with no blood noted in the terminal ileum, polypectomy also performed. Current Visit: Yes Status: Acute Code(s): K92.1 - MELENA SNOMED Code(s): 111921424 (2) Anemia associated with acute blood loss Current Visit: Yes Status: Acute Code(s): D62 - ACUTE POSTHEMORRHAGIC ANEMIA SNOMED Code(s): 489374564 Plan: Supportive care Full liquid diet, okay to advance to low fiber tomorrow if hemoglobin stable and no further bleeding Continue to monitor hemoglobin and hematocrit and transfuse as needed No plans for further endoscopic evaluation Patient will need repeat colonoscopy in 3 years given the high-risk colon polyp found on colonoscopy Thank you for allowing us to participate in the care of the patient
--- NOTE | 2020-01-23 21:59 | P.PN ---
Subjective Progress Note Date: 01/23/20 Pt's Hgb stable from yesterday without any further melena or hematochezia. Colonoscopy with no active bleed, elias-diverticulosis as well as high-risk polyp which was snared. She denies abdominal pain or nausea. Objective - Vital Signs Vital signs: Vital Signs Temp 97.8 F 01/23/20 19:17 Pulse 95 01/23/20 20:21 Resp 18 01/23/20 19:17 BP 108/61 01/23/20 20:21 Pulse Ox 100 01/23/20 19:17 Intake & Output 01/23/20 01/23/20 01/24/20 06:59 18:59 06:59 Intake Total 240 880 Output Total 380 290 Balance -140 590 Weight 122.3 kg 122.3 kg Intake: IV 240 160 Sodium Chloride 0.9% 1, 240 160 000 ml @ 20 mls/hr IV . Q24H DARINEL Rx#:[id number] Oral 720 Output: Urine 380 290 Other: Voiding Method Indwelling Catheter Indwelling Catheter - Exam Gen: well developed, well nourished female in NAD CV: RRR, no murmur Lungs: normal effort, clear throughout Abd: soft, nontender Neuro: alert and oriented x3 - Labs CBC & Chem 7: 01/23/20 03:47 01/23/20 04:02 Labs: Abnormal Lab Results - Last 24 Hours (Table) 01/23/20 01/23/20 Range/Units 03:47 04:02 RBC 2.69 L (3.80-5.40) m/uL Hgb 7.9 L (11.4-16.0) gm/dL Hct 24.8 L (34.0-46.0) % RDW 18.0 H (11.5-15.5) % Sodium 136 L (137-145) mmol/L Chloride 112 H (98-107) mmol/L Calcium 7.6 L (8.4-10.2) mg/dL Assessment and Plan (1) Acute blood loss anemia Current Visit: Yes Status: Acute Code(s): D62 - ACUTE POSTHEMORRHAGIC ANEMIA SNOMED Code(s): 162354880 (2) Hematochezia Current Visit: Yes Status: Acute Code(s): K92.1 - MELENA SNOMED Code(s): 906906260 (3) Colon polyp Current Visit: Yes Status: Acute Code(s): K63.5 - POLYP OF COLON SNOMED Code(s): 43143170 Plan: Suspect diverticular bleed based on colonoscopy. No evidence of continue bl eeding. Advance diet today and okay for low fiber diet tomorrow if she continues to tolerate. Follow hgb and transfuse for <7
[2020-01-24] MEDS: SPIRONOLACTONE 25 MG TAB PO SCH (07:48)
[2020-01-24] MEDS: METOPROLOL TARTRATE 25 MG TAB PO SCH ×2 (07:48→20:22)
[2020-01-24] MEDS: PANTOPRAZOLE 40 MG/10 ML VIAL IVP SCH (07:49)
[2020-01-24 08:01] LABS: Anisocytosis Slight; HCT 26.4 % (34.0-46.0); HGB 8.1 gm/dL (11.4-16.0); Hypochromasia Marked; MCH 28.6 pg (25.0-35.0); MCHC 30.6 g/dL (31.0-37.0); MCV 93.5 fL (80.0-100.0); Mean Platelet Volume 8.1; Platelet Count 320 k/uL (150-450); Poikilocytosis Slight; RBC 2.82 m/uL (3.80-5.40); RDW 18.3 % (11.5-15.5); WBC 7.7 k/uL (3.8-10.6)
[2020-01-24 08:15] LABS: African American GFR (CKD) >90 (>60 ml/min/1.73 sqM); Anion Gap 3 mmol/L; Blood Urea Nitrogen 9 mg/dL (7-17); Calcium 7.9 mg/dL (8.4-10.2); Carbon Dioxide 24 mmol/L (22-30); Chloride 112 mmol/L (98-107); Glucose 83 mg/dL (74-99); Non-African American GFR(CKD) >90 (>60 ml/min/1.73 sqM); Potassium 4.4 mmol/L (3.5-5.1); Sodium 139 mmol/L (137-145)
--- NOTE | 2020-01-24 10:45 | P.PN ---
Subjective The patient seen and examined sitting up in the chair in no acute distress. She just got back from the restroom. She has no noted exertional dyspnea. She is denying chest pain, shortness of breath, dizziness or palpitations. She underwent colonoscopy with Dr. Del Castillo and January 21 revealing no active bleeding with old hemolyzed blood noted throughout the entire, moderate pandiverticulosis, mild internal hemorrhoids and pedunculated sigmoid colon polyp removed with hot snare polypectomy. She is currently maintained on metoprolol 25 mg twice a day and Aldactone 25 mg daily. Blood pressure this morning is 137/74 heart rate of 104 afebrile maintaining oxygen saturation on room air. Her previous 24-hour blood pressure trend reveals her systolic around 100. Laboratory data reviewed, WBC 7.7, hemoglobin 8.1, platelets 320, sodium 139, potassium 4.4, creatinine 0.6. GENERAL: Well-appearing, well-nourished and in no acute distress. NECK: Supple without JVD or thyromegaly. LUNGS: Breath sounds clear to auscultation bilaterally. Respiration equal and unlabored. No wheezes, rales or rhonchi. HEART: Irregular rate and rhythm with holosystolic murmur at the apex, no rubs or gallops. S1 and S2 heard. EXTREMITIES: Normal range of motion, 1+ bilateral lower extremity pitting edema. Dressing in place to the right anterior tibial region. No clubbing or cyanosis. Peripheral pulses intact. ASSESSMENT GI bleeding, colonoscopy revealed no active bleeding with diverticulosis and polypectomy Persistent atrial fibrillation not on roasterman anticoagulation recently diagnosed by her PCP in the outpatient setting earlier this year Systolic heart failure, unsure of chronicity. Patient was diagnosed in the outpatient setting by her primary care physician and has yet to see a appliance counselor. Cardiomyopathy, unclear if ischemic or nonischemic at this point. Valvular heart disease PLAN At this point her blood pressure will not tolerate an ALFA inhibitor. Continue lopressor and aldactone as previously ordered. We will discuss intermediate anti-coagulation with the GI team. Rationale and need for anticoagulation was discussed with the patient in great detail. Further recommendations to follow based on clinical course. Nurse Practitioner note has been reviewed, I agree with a documented findings and plan of care. Patient was seen and examined. Objective - Vital Signs Vital signs: Vital Signs Temp 97.7 F 08/13/20 07:00 Pulse 104 H 01/24/20 07:00 Resp 18 01/24/20 08:00 BP 137/74 01/24/20 07:00 Pulse Ox 99 01/24/20 07:00 Intake & Output 01/23/20 01/24/20 01/24/20 18:59 06:59 18:59 Intake Total 880 160 Output Total 290 1700 Balance 590 -1540 Weight 122.3 kg Intake: IV 160 160 Sodium Chloride 0.9% 1, 160 160 000 ml @ 20 mls/hr IV . Q24H [facility] Rx#:[id number] Oral 720 Output: Urine 290 1700 Other: Voiding Method Indwelling Catheter Indwelling Catheter # Voids 1 - Labs CBC & Chem 7: 01/24/20 07:30 01/24/20 07:30 Labs: Abnormal Lab Results - Last 24 Hours (Table) 01/24/20 01/24/20 Range/Units 07:30 07:30 RBC 2.82 L (3.80-5.40) m/uL Hgb 8.1 L (11.4-16.0) gm/dL Hct 26.4 L (34.0-46.0) % MCHC 30.6 L (31.0-37.0) g/dL RDW 18.3 H (11.5-15.5) % Chloride 112 H (98-107) mmol/L Calcium 7.9 L (8.4-10.2) mg/dL
[2020-01-24] MEDS: SODIUM CHLORIDE 0.9% 1,000 ML IV SCH (20:21)
--- NOTE | 2020-01-24 22:44 | P.PN ---
Subjective Progress Note Date: 01/24/20 Pt's Hgb improved to 8.1 today. She denies melena or hematochezia, tolerated oatmeal for breakfast. She is working with PT Objective - Vital Signs Vital signs: Vital Signs Temp 97.9 F 01/24/20 18:50 Pulse 94 01/24/20 20:22 Resp 18 01/24/20 18:50 BP 104/69 01/24/20 20:22 Pulse Ox 96 01/24/20 18:50 Intake & Output 01/24/20 01/24/20 01/25/20 06:59 18:59 06:59 Intake Total 160 1080 Output Total 1700 Balance -1540 1080 Weight 122.3 kg Intake: IV 160 Sodium Chloride 0.9% 1, 160 000 ml @ 20 mls/hr IV . Q24H [facility] Rx#:[id number] Oral 1080 Output: Urine 1700 Other: Voiding Method Indwelling Catheter Toilet # Voids 1 3 2 # Bowel Movements 1 - Exam Gen: well developed, well nourished female in NAD CV: RRR, no murmur Lungs: normal effort, clear throughout Abd: soft, nontender Neuro: alert and oriented x3 - Labs CBC & Chem 7: 01/24/20 07:30 01/24/20 07:30 Labs: Abnormal Lab Results - Last 24 Hours (Table) 01/24/20 01/24/20 Range/Units 07:30 07:30 RBC 2.82 L (3.80-5.40) m/uL Hgb 8.1 L (11.4-16.0) gm/dL Hct 26.4 L (34.0-46.0) % MCHC 30.6 L (31.0-37.0) g/dL RDW 18.3 H (11.5-15.5) % Chloride 112 H (98-107) mmol/L Calcium 7.9 L (8.4-10.2) mg/dL Assessment and Plan (1) Acute blood loss anemia Current Visit: Yes Status: Acute Code(s): D62 - ACUTE POSTHEMORRHAGIC ANEMIA SNOMED Code(s): 723728162 (2) Hematochezia Current Visit: Yes Status: Acute Code(s): K92.1 - MELENA SNOMED Code(s): 684836553 (3) Colon polyp Current Visit: Yes Status: Acute Code(s): K63.5 - POLYP OF COLON SNOMED Code(s): 86454464 (4) Atrial fibrillation Current Visit: Yes Status: Acute Code(s): I48.91 - UNSPECIFIED ATRIAL FIBRILLATION SNOMED Code(s): 55014423 Plan: Advance to low fiber diet. Continue to monitor hgb. Due to her atrial fibrillation, will need half-way anticoagulation. GI and cardiology following, anticoagulation recommendations pending
[2020-01-25] MEDS: PANTOPRAZOLE 40 MG/10 ML VIAL IVP SCH (07:05)
[2020-01-25] MEDS: METOPROLOL TARTRATE 25 MG TAB PO SCH ×2 (07:05→20:49)
[2020-01-25] MEDS: SPIRONOLACTONE 25 MG TAB PO SCH (07:05)
[2020-01-25 10:27] LABS: Anisocytosis Slight; Basophils # (A) 0.1 k/uL (0-0.2); Basophils % (A) 1 %; Eosinophils # (A) 0.4 k/uL (0-0.7); Eosinophils % (A) 6 %; HCT 24.8 % (34.0-46.0); HGB 7.4 gm/dL (11.4-16.0); Hypochromasia Marked; Lymphocytes # (A) 1.2 k/uL (1.0-4.8); Lymphocytes % (A) 17 %; MCHC 29.8 g/dL (31.0-37.0); MCV 93.9 fL (80.0-100.0); Mean Platelet Volume 8.1; Monocytes # (A) 0.4 k/uL (0-1.0); Monocytes % (A) 6 %; Neutrophils # (A) 4.8 k/uL (1.3-7.7); Neutrophils % (A) 69 %; Platelet Count 325 k/uL (150-450); Poikilocytosis Slight; RBC 2.64 m/uL (3.80-5.40); RDW 18.3 % (11.5-15.5); WBC 6.9 k/uL (3.8-10.6)
[2020-01-25] MEDS ORDERED: HYDROCORTISONE 1% CREAM 30 GM TUBE TOPICAL PRN (13:23)
--- NOTE | 2020-01-25 13:30 | P.PN ---
Subjective Patient is seen and examined in no acute distress. Discussed with GI team yesterday and secondary to polypectomy they prefer holding on oral Antico agulation until outpatient follow-up. Blood pressure 105/60 heart rate 89 afebrile maintaining oxygen saturation on room air. She denies symptoms of chest pain, shortness of breath, dizziness or palpitations. She has been up and ambulating without difficulty. GENERAL: Well-appearing, well-nourished and in no acute distress. NECK: Supple without JVD or thyromegaly. LUNGS: Breath sounds clear to auscultation bilaterally. Respiration equal and unlabored. No wheezes, rales or rhonchi. HEART: Irregular rate and rhythm with holosystolic murmur at the apex, no rubs or gallops. S1 and S2 heard. EXTREMITIES: Normal range of motion, 1+ bilateral lower extremity pitting edema. Dressing in place to the right anterior tibial region. No clubbing or cyanosis. Peripheral pulses intact. ASSESSMENT GI bleeding, colonoscopy revealed no active bleeding with diverticulosis and polypectomy Persistent atrial fibrillation not on residential anticoagulation recently diagnosed by her PCP in the outpatient setting earlier this year Systolic heart failure, unsure of chronicity. Patient was diagnosed in the outpatient setting by her primary care physician and has yet to see a raking machine operator. Cardiomyopathy, unclear if ischemic or nonischemic at this point. Valvular heart disease PLAN We will discuss long-term anticoagulation in follow-up in the office. No ALFA/ARB initiated secondary to borderline blood pressure. Follow-up in the office with Dr. Michael upon discharge. Stable from a cardiac perspective. Nurse Practitioner note has been reviewed, I agree with a documented findings and plan of care. Patient was seen and examined. Objective - Vital Signs Vital signs: Vital Signs Temp 97.6 F 01/25/20 07:00 Pulse 89 01/25/20 07:00 Resp 18 01/25/20 07:15 BP 105/60 01/25/20 07:00 Pulse Ox 95 01/25/20 07:00 Intake & Output 01/24/20 01/25/20 01/25/20 18:59 06:59 18:59 Intake Total 1080 Balance 1080 Weight 122.3 kg Intake: Oral 1080 Other: Voiding Method Indwelling Catheter Toilet Toilet # Voids 3 4 # Bowel Movements 1 - Labs CBC & Chem 7: 01/25/20 10:00 01/24/20 07:30
--- NOTE | 2020-01-25 20:39 | P.PN ---
Subjective Progress Note Date: 01/25/20 Pt's Hgb did trop today to 7.4, she denies having a BM since yesterday. Tolerating low fiber diet. She is feeling essentially back at her baseline Objective - Vital Signs Vital signs: Vital Signs Temp 97.8 F 01/25/20 18:53 Pulse 99 01/25/20 18:53 Resp 17 01/25/20 14:26 BP 127/77 01/25/20 18:53 Pulse Ox 99 01/25/20 18:53 Intake & Output 01/25/20 01/25/20 01/26/20 06:59 18:59 06:59 Other: Voiding Method Toilet Toilet # Voids 4 2 # Bowel Movements 1 - Exam Gen: well developed, well nourished female in NAD CV: RRR, no murmur Lungs: normal effort, clear throughout Abd: soft, nontender Neuro: alert and oriented x3 - Labs CBC & Chem 7: 01/25/20 10:00 01/24/20 07:30 Labs: Abnormal Lab Results - Last 24 Hours (Table) 01/25/20 Range/Units 10:00 RBC 2.64 L (3.80-5.40) m/uL Hgb 7.4 L (11.4-16.0) gm/dL Hct 24.8 L (34.0-46.0) % MCHC 29.8 L (31.0-37.0) g/dL RDW 18.3 H (11.5-15.5) % Assessment and Plan (1) Acute blood loss anemia Current Visit: Yes Status: Acute Code(s): D62 - ACUTE POSTHEMORRHAGIC ANEMIA SNOMED Code(s): 023645667 (2) Hematochezia Current Visit: Yes Status: Acute Code(s): K92.1 - MELENA SNOMED Code(s): 488448284 (3) Colon polyp Current Visit: Yes Status: Acute Code(s): K63.5 - POLYP OF COLON SNOMED Code(s): 10428287 (4) Atrial fibrillation Current Visit: Yes Status: Acute Code(s): I48.91 - UNSPECIFIED ATRIAL FIBRILLATION SNOMED Code(s): 81311399 Plan: Continue with low fiber diet. Monitor hgb over next 24 hours. Anticipate discharge if stable. She will hold anticoagulation until discussion with Cardiology in clinic
[2020-01-25] MEDS: SODIUM CHLORIDE 0.9% 1,000 ML IV SCH (20:51)
[2020-01-26 08:03] LABS: Anisocytosis Slight; Basophils # (A) 0.1 k/uL (0-0.2); Basophils % (A) 1 %; Eosinophils # (A) 0.5 k/uL (0-0.7); Eosinophils % (A) 6 %; HCT 24.7 % (34.0-46.0); HGB 7.4 gm/dL (11.4-16.0); Hypochromasia Marked; Lymphocytes # (A) 1.3 k/uL (1.0-4.8); Lymphocytes % (A) 16 %; MCH 28.1 pg (25.0-35.0); MCHC 30.1 g/dL (31.0-37.0); MCV 93.3 fL (80.0-100.0); Mean Platelet Volume 8.2; Monocytes # (A) 0.4 k/uL (0-1.0); Monocytes % (A) 5 %; Neutrophils # (A) 5.9 k/uL (1.3-7.7); Neutrophils % (A) 71 %; Platelet Count 341 k/uL (150-450); Poikilocytosis Slight; RBC 2.65 m/uL (3.80-5.40); WBC 8.3 k/uL (3.8-10.6)
[2020-01-26] MEDS: SPIRONOLACTONE 25 MG TAB PO SCH (08:25)
[2020-01-26] MEDS: PANTOPRAZOLE 40 MG/10 ML VIAL IVP SCH (08:26)
[2020-01-26] MEDS: METOPROLOL TARTRATE 25 MG TAB PO SCH (08:26)
[2020-01-26 15:57] VITALS: BP 119/78; PULSE 98; RESP 17; TEMP 97.6
--- NOTE | 2020-01-26 20:07 | DS ---
DISCHARGE SUMMARY FINAL DIAGNOSES: 1. Acute blood loss anemia, source undetermined, possibly gastrointestinal blood loss with colonoscopy showing active bleeding. 2. History of colonic polyps. 3. History of atrial fibrillation. 4. Anemia, normocytic secondary from gastrointestinal bleed. 5. Hyponatremia. 6. Hyperchloremia. 7. History of congestive heart failure, ejection fraction unknown. 8. History of D&C. 9. FULL CODE. DISCHARGE DISPOSITION: The patient will be discharged in stable condition with guarded prognosis. HISTORY OF PRESENT ILLNESS: This 64-year-old woman with a past medical history of multiple medical problems being followed Dr. Maritza Fulton in the outpatient setting was admitted with anemia. The patient had 5 units of transfusions. Colonoscopy is negative but hemoglobin 7.4 at this time, which is rather stable. Patient is extremely keen on going home. The patient will be discharged in stable condition. Guarded prognosis. During the hospitalization, patient was seen by Gastroenterology and surgery and care was coordinated. Colonoscopy results are as above. EGD also showed only mild gastritis. No active bleeding was noted. As mentioned earlier, hemoglobin 7.5. Patient discharged in stable condition with guarded prognosis. On exam, vitals are stable. Cardiovascular: S1, S2. Abdomen soft. Nervous system: No focal deficits. Conjunctivae pale. DISCHARGE ADVICE AND MEDICATIONS: 1. Diet is cardiac. 2. Activity limited followup. 3. Follow up with Dr. Maritza Fulton in 1-2 days. 4. Follow up with Cardiology as recommended for anticoagulation aspirin. 5. Follow up with Gastroenterology in 1 week. 6. Medications are: Lasix 60 mg daily. 7. Lisinopril 20 mg daily. 8. Toprol-XL 25 mg Tuesday. 9. Protonix 40 mg p.o. daily. 10.Hold aspirin for now. No anticoagulation. 11. MMODL / IJN: [id number] / MTDD
== END 2020-01-26 16:10 | disposition home health service (06) | DRG 377 ==
LOC: SUPCPDRO 21:23 → EC 21:23 → 2SICU 22:36 → 4SSUR 01-23 17:07
PROVIDERS: ADMIT Family Medicine; ATTEND Family Medicine
PROC: 30233N1 Transfusion of Nonautologous Red Blood Cells into Peripheral Vein, Percutaneous Approach (ICD-10-PCS; 2020-01-18)
PROC: 3E033XZ Introduction of Vasopressor into Peripheral Vein, Percutaneous Approach (ICD-10-PCS; principal; 2020-01-19)
PROC: 06HN33Z Insertion of Infusion Device into Left Femoral Vein, Percutaneous Approach (ICD-10-PCS; 2020-01-20)
PROC: 0DJ08ZZ Inspection of Upper Intestinal Tract, Via Natural or Artificial Opening Endoscopic (ICD-10-PCS; 2020-01-21)
PROC: 0W3P8ZZ Control Bleeding in Gastrointestinal Tract, Via Natural or Artificial Opening Endoscopic (ICD-10-PCS; 2020-01-22)
PROC: 0DBN8ZX Excision of Sigmoid Colon, Via Natural or Artificial Opening Endoscopic, Diagnostic (ICD-10-PCS; 2020-01-22)
DX: K92.1 Melena (principal); R57.1 Hypovolemic shock; I48.19 Other persistent atrial fibrillation; I42.9 Cardiomyopathy, unspecified; D62 Acute posthemorrhagic anemia; L97.919 Non-pressure chronic ulcer of unspecified part of right lower leg with unspecified severity; I50.22 Chronic systolic (congestive) heart failure; Z68.42 Body mass index [BMI] 45.0-49.9, adult; E87.1 Hypo-osmolality and hyponatremia; I27.20 Pulmonary hypertension, unspecified; I95.9 Hypotension, unspecified; I11.0 Hypertensive heart disease with heart failure; E87.8 Other disorders of electrolyte and fluid balance, not elsewhere classified; E66.9 Obesity, unspecified; K63.5 Polyp of colon; K57.30 Diverticulosis of large intestine without perforation or abscess without bleeding; K64.8 Other hemorrhoids; K29.70 Gastritis, unspecified, without bleeding; I08.3 Combined rheumatic disorders of mitral, aortic and tricuspid valves; I87.2 Venous insufficiency (chronic) (peripheral); M54.9 Dorsalgia, unspecified; Z79.82 Long term (current) use of aspirin; Z79.899 Other long term (current) drug therapy; Z71.3 Dietary counseling and surveillance; Z98.891 History of uterine scar from previous surgery; Z87.42 Personal history of other diseases of the female genital tract; Z86.010 Personal history of colon polyps; Z98.890 Other specified postprocedural states; Z88.1 Allergy status to other antibiotic agents; Z88.5 Allergy status to narcotic agent; Z88.2 Allergy status to sulfonamides
CPT/HCPCS: 36415; 36430; 43235; 45382; 45385; 71045; 80048; 80053; 82272; 83605; 83690; 83735; 84132; 84443; 84484; 85025; 85027; 85610; 85730; 86850; 86900; 86901; 86920; 88305; 93005; 93306; 96361; 96374; 99285

== ENCOUNTER 2020-02-07 11:39 | Inpatient (IN) | payer MEDICARE, OTHER ==
--- NOTE | 2020-02-07 12:03 | ED ---
General Adult HPI - General Stated complaint: GI Bleed, Weakness Time Seen by Provider: 02/07/20 11:40 Source: patient, EMS, RN notes reviewed, old records reviewed - History of Present Illness Initial comments: 64-year-old female history of atrial fibrillation, recent admission for GI bleed presenting with generalized weakness, fever, vomiting. Patient began vomiting approximately 5 days prior to arrival. She had been seen by her primary care physician with this complaint and was sent to the emergency department for evalu ation. Patient had recent GI bleed and was started on several new medications. She had vomited on Tuesday which was 5 days ago and then again on Tuesday. For the past 4 days she has not vomited but she has felt weak and his had fever up to 102. She denies cough or URI symptoms. She denies abdominal pain. Denies chest pain or dyspnea. Denies dysuria or hematuria. - Related Data Home Medications Medication Instructions Recorded Confirmed Furosemide [Lasix] 20 mg PO TID 01/18/20 02/07/20 Metoprolol Succinate [Toprol XL] 25 mg PO W/SUPPER 01/18/20 02/07/20 lisinopriL 20 mg PO DAILY 01/18/20 02/07/20 Nystatin [Nystop] 1 applic TOPICAL DAILY PRN 02/07/20 02/07/20 Pantoprazole Sodium [Protonix] 40 mg PO AC-SUPPER 02/07/20 02/07/20 Spironolactone 25 mg PO W/LUNCH 02/07/20 02/07/20 Allergies Allergy/AdvReac Type Severity Reaction Status Date / Time codeine Allergy Rash/Hives Verified 02/07/20 12:59 erythromycin base Allergy Rash/Hives Verified 02/07/20 12:59 Sulfa (Sulfonamide Allergy Itching Verified 02/07/20 12:59 Antibiotics) Review of Systems ROS Statement: Those systems with pertinent positive or pertinent negative responses have been documented in the HPI. ROS Other: All systems not noted in ROS Statement are negative. Past Medical History Past Medical History: Atrial Fibrillation, Heart Failure History of Any Multi-Drug Resistant Organisms: None Reported Past Surgical History: Section Additional Past Surgical History / Comment(s): D&C Past Anesthesia/Blood Transfusion Reactions: No Reported Reaction Past Psychological History: No Psychological Hx Reported Smoking Status: Never smoker Past Alcohol Use History: None Reported Past Drug Use History: None Reported General Exam General appearance: alert, in no apparent distress Head exam: Present: atraumatic, normocephalic Eye exam: Present: normal appearance, PERRL ENT exam: Present: normal exam Neck exam: Present: normal inspection. Absent: tenderness, meningismus Respiratory exam: Present: normal lung sounds bilaterally. Absent: respiratory distress, wheezes Cardiovascular Exam: Present: tachycardia, irregular rhythm GI/Abdominal exam: Present: soft. Absent: distended, tenderness, guarding, rebound Extremities exam: Present: pedal edema Neurological exam: Present: alert, oriented X3, CN II-XII intact. Absent: motor sensory deficit Psychiatric exam: Present: normal affect, normal mood Skin exam: Present: warm, dry, intact. Absent: cyanosis, diaphoretic Course Vital Signs 02/07/20 11:55 Temperature 99.0 F Pulse Rate 117 H Respiratory 18 Rate Blood Pressure 102/56 O2 Sat by Pulse 100 Oximetry EKG Findings - EKG Comments: EKG Findings:: EKG: Atrial fibrillation with RVR, low voltage, rate of 110, QRS duration 106, QTC 489, no ST segment elevation. Medical Decision Making - Medical Decision Making 64-year-old female with fever, weakness, recent GI bleed. Hemoglobin is 71 which is stable for this patient. X-ray showing a left renal stone, no obstruction or intraperitoneal free air. Chest x-ray showing a left-sided effusion and infiltrate. Patient does report fever up to 102, she is started on IV antibiotics and will be admitted. Case is discussed with Dr. Marsh, who will admit, recommends pro-calcitonin level this has been ordered and is pending. GI will be placed on consult, serial hemoglobin will be obtained. - Lab Data Result diagrams: 02/07/20 12:50 02/07/20 12:23 Lab Results 02/07/20 02/07/20 02/07/20 Range/Units 12:23 12:23 12:23 WBC (3.8-10.6) k/uL RBC (3.80-5.40) m/uL Hgb (11.4-16.0) gm/dL Hct (34.0-46.0) % MCV (80.0-100.0) fL MCH (25.0-35.0) pg MCHC (31.0-37.0) g/dL RDW (11.5-15.5) % Plt Count (150-450) k/uL Neutrophils % % Lymphocytes % % Monocytes % % Eosinophils % % Basophils % % Neutrophils # (1.3-7.7) k/uL Lymphocytes # (1.0-4.8) k/uL Monocytes # (0-1.0) k/uL Eosinophils # (0-0.7) k/uL Basophils # (0-0.2) k/uL Hypochromasia Poikilocytosis Anisocytosis PT 14.5 H (9.0-12.0) sec INR 1.5 H (<1.2) APTT 24.6 (22.0-30.0) sec Sodium 135 L (137-145) mmol/L Potassium 3.8 (3.5-5.1) mmol/L Chloride 101 (98-107) mmol/L Carbon Dioxide 24 (22-30) mmol/L Anion Gap 10 mmol/L BUN 22 H (7-17) mg/dL Creatinine 0.85 (0.52-1.04) mg/dL Est GFR (CKD-EPI)AfAm 83 (>60 ml/min/1.73 sqM) Est GFR (CKD-EPI)NonAf 72 (>60 ml/min/1.73 sqM) Glucose 98 (74-99) mg/dL Plasma Lactic Acid Yang 1.8 (0.7-2.0) mmol/L Calcium 8.1 L (8.4-10.2) mg/dL Magnesium 2.2 (1.6-2.3) mg/dL Total Bilirubin 2.3 H (0.2-1.3) mg/dL AST 27 (14-36) U/L ALT 12 (4-34) U/L Alkaline Phosphatase 83 (38-126) U/L Total Protein 6.4 (6.3-8.2) g/dL Albumin 3.4 L (3.5-5.0) g/dL 02/07/20 Range/Units 12:50 WBC 9.6 (3.8-10.6) k/uL RBC 2.80 L (3.80-5.40) m/uL Hgb 7.1 L (11.4-16.0) gm/dL Hct 23.8 L (34.0-46.0) % MCV 85.0 D (80.0-100.0) fL MCH 25.3 (25.0-35.0) pg MCHC 29.7 L (31.0-37.0) g/dL RDW 18.9 H (11.5-15.5) % Plt Count 335 (150-450) k/uL Neutrophils % 79 % Lymphocytes % 11 % Monocytes % 7 % Eosinophils % 1 % Basophils % 1 % Neutrophils # 7.5 (1.3-7.7) k/uL Lymphocytes # 1.1 (1.0-4.8) k/uL Monocytes # 0.6 (0-1.0) k/uL Eosinophils # 0.1 (0-0.7) k/uL Basophils # 0.1 (0-0.2) k/uL Hypochromasia Marked Poikilocytosis Marked Anisocytosis Slight PT (9.0-12.0) sec INR (<1.2) APTT (22.0-30.0) sec Sodium (137-145) mmol/L Potassium (3.5-5.1) mmol/L Chloride (98-107) mmol/L Carbon Dioxide (22-30) mmol/L Anion Gap mmol/L BUN (7-17) mg/dL Creatinine (0.52-1.04) mg/dL Est GFR (CKD-EPI)AfAm (>60 ml/min/1.73 sqM) Est GFR (CKD-EPI)NonAf (>60 ml/min/1.73 sqM) Glucose (74-99) mg/dL Plasma Lactic Acid Yang (0.7-2.0) mmol/L Calcium (8.4-10.2) mg/dL Magnesium (1.6-2.3) mg/dL Total Bilirubin (0.2-1.3) mg/dL AST (14-36) U/L ALT (4-34) U/L Alkaline Phosphatase (38-126) U/L Total Protein (6.3-8.2) g/dL Albumin (3.5-5.0) g/dL Disposition Clinical Impression: Anemia, Community acquired pneumonia, Afib Disposition: ADMITTED IP TO THIS HOSP Condition: Stable Is patient prescribed a controlled substance at d/c from ED?: No Referrals: Maritza Fulton DO [Primary Care Provider] - 1-2 days Decision to Admit Reason: Admit from EC Decision Date: 02/07/20 Decision Time: 14:36
[2020-02-07 12:46] LABS: Albumin 3.4 g/dL (3.5-5.0); Calcium 8.1 mg/dL (8.4-10.2); INR 1.5 (<1.2); Magnesium 2.2 mg/dL (1.6-2.3); Partial Thromboplastin Time 24.6 sec (22.0-30.0); Potassium 3.8 mmol/L (3.5-5.1); Prothrombin Time 14.5 sec (9.0-12.0); Total Bilirubin 2.3 mg/dL (0.2-1.3); Total Protein 6.4 g/dL (6.3-8.2)
[2020-02-07 13:01] LABS: Anisocytosis Slight; Basophils # (A) 0.1 k/uL (0-0.2); Basophils % (A) 1 %; Eosinophils # (A) 0.1 k/uL (0-0.7); Eosinophils % (A) 1 %; HCT 23.8 % (34.0-46.0); HGB 7.1 gm/dL (11.4-16.0); Hypochromasia Marked; Lymphocytes # (A) 1.1 k/uL (1.0-4.8); Lymphocytes % (A) 11 %; MCH 25.3 pg (25.0-35.0); MCHC 29.7 g/dL (31.0-37.0); Mean Platelet Volume 9.3; Monocytes # (A) 0.6 k/uL (0-1.0); Monocytes % (A) 7 %; Neutrophils # (A) 7.5 k/uL (1.3-7.7); Neutrophils % (A) 79 %; Platelet Count 335 k/uL (150-450); Poikilocytosis Marked; RDW 18.9 % (11.5-15.5); WBC 9.6 k/uL (3.8-10.6)
--- NOTE | 2020-02-07 13:35 | XR ---
EXAMINATION TYPE: XR chest 2V DATE OF EXAM: 02/07/2020 COMPARISON: Chest x-ray 17 days ago. HISTORY: Fever and weakness. TECHNIQUE: Frontal and lateral views of the chest are obtained. FINDINGS: There is persistent cardiomegaly. There is background Chronic parenchymal changes with inc reasing left basilar opacity. Right lung remains clear. The osseous structures are demineralized. IMPRESSION: Cardiomegaly with new small left pleural effusion and associated left basilar acute infi ltrate and/or atelectasis.
--- NOTE | 2020-02-07 13:41 | XR ---
EXAMINATION TYPE: XR KUB DATE OF EXAM: 02/07/2020 1:28 PM CLINICAL HISTORY: Fever and weakness. Vomiting. TECHNIQUE: Two Upright KUB images of the abdomen are obtained. COMPARISON: Same-day chest x-ray. FINDINGS: Some paucity of bowel gas. Scattered gas in nondistended small and large bowel loops. Under lying levoconvex scoliosis centered at L2 level. Osseous structures are demineralized. Right pelvic 2 .1 cm linear density of uncertain etiology, correlate clinically. Possible large 2.1 cm lower pole le ft renal calculus. Some vascular calcification overlying abdominal aorta. Moderate narrowing of both hip joints. Redemonstration of known left basilar opacity and cardiomegaly. No pneumoperitoneum. Impression: Overall nonspecific but likely nonobstructive bowel gas pattern. Other findings as noted above.
[2020-02-07] MEDS ORDERED: cefTRIAXone IN SWFI 1,000 MG/10 ML SYRINGE IVP STA (14:19)
[2020-02-07] MEDS ORDERED: LEVOFLOXACIN 500MG-D5W PMX 500 MG in DEXTROSE/WATER 1 100ML.BAG IVPB STA (14:20)
[2020-02-07] MEDS ORDERED: PANTOPRAZOLE 40 MG/10 ML VIAL IVP STA (14:26)
[2020-02-07] MEDS ORDERED: NALOXONE 0.4 MG/ML 1 ML VIAL IV PRN (14:33)
[2020-02-07] MEDS: SODIUM CHLORIDE 0.9% 1,000 ML IV SCH (14:41)
[2020-02-07 14:54] LABS: Appearance,Urine Cloudy (Clear); Bacteria,Urine Many /hpf; Bilirubin,Urine Negative (Negative); Blood,Urine Trace (Negative); Color,Urine Yellow; Glucose,Urine (UA) Negative (Negative); Hyaline Casts,Urine 15 /lpf (0-2); Ketones,Urine Negative (Negative); Leukocyte Esterase,Urine Large (Negative); Mucus,Urine Occasional /hpf; Nitrite,Urine Negative (Negative); PH, Urine 5.5 (5.0-8.0); Protein,Urine Trace (Negative); RBC,Urine 14 /hpf (0-5); Specific Gravity,Urine 1.011 (1.001-1.035); Squamous Epithelial Cell,Urine 4 /hpf (0-4); Urobilinogen,Urine <2.0 mg/dL (<2.0); WBC,Urine 133 /hpf (0-5)
[2020-02-07 15:40] LABS: Reticulocyte % 2.5 % (0.5-2.0)
[2020-02-07] MEDS ORDERED: PANTOPRAZOLE 40 MG TABLET PO SCH (17:30)
[2020-02-07] MEDS: METOPROLOL SUCCINATE (ER) 25 MG TAB.ER.24H PO SCH (18:15)
[2020-02-07] MEDS: FUROSEMIDE 20 MG TAB PO SCH (18:15)
[2020-02-07] MEDS: PANTOPRAZOLE 40 MG/10 ML VIAL IVP SCH (21:27)
[2020-02-07 22:36] LABS: % Iron Saturation 1.57 (12.00-45.00); Ferritin 16.7 ng/mL (10.0-291.0); Folate, Serum >24.0 ng/mL; Iron 6 ug/dL (50-170); Total Iron Binding Capacity 383 ug/dL (228-460)
[2020-02-08] MEDS: SODIUM CHLORIDE 0.9% 1,000 ML IV SCH ×4 (03:11→20:53)
[2020-02-08] MEDS: FUROSEMIDE 20 MG TAB PO SCH ×3 (08:15→17:10)
[2020-02-08] MEDS: PANTOPRAZOLE 40 MG/10 ML VIAL IVP SCH ×2 (08:16→20:54)
[2020-02-08] MEDS: lisinopriL 20 MG TAB PO SCH (08:16)
[2020-02-08] MEDS ORDERED: AZITHROMYCIN 500 MG in SODIUM CHLORIDE 0.9% 250 ML IVPB STA (08:41)
[2020-02-08 09:08] LABS: Anisocytosis Slight; Basophils % (A) 0 %; Eosinophils # (A) 0.2 k/uL (0-0.7); Eosinophils % (A) 4 %; HCT 26.4 % (34.0-46.0); HGB 7.6 gm/dL (11.4-16.0); Hypochromasia Marked; Lymphocytes # (A) 1.5 k/uL (1.0-4.8); Lymphocytes % (A) 22 %; MCH 24.9 pg (25.0-35.0); MCHC 28.8 g/dL (31.0-37.0); MCV 86.7 fL (80.0-100.0); Mean Platelet Volume 9.7; Monocytes # (A) 0.4 k/uL (0-1.0); Monocytes % (A) 5 %; Neutrophils # (A) 4.6 k/uL (1.3-7.7); Neutrophils % (A) 67 %; Platelet Count 341 k/uL (150-450); Poikilocytosis Marked; RBC 3.04 m/uL (3.80-5.40); RDW 18.9 % (11.5-15.5); WBC 6.9 k/uL (3.8-10.6)
[2020-02-08 10:00] LABS: Polychromasia Present
[2020-02-08] MEDS: SPIRONOLACTONE 25 MG TAB PO SCH (12:38)
[2020-02-08] MEDS: SODIUM FERRIC GLUCONAT-SUCROSE 125 MG in SODIUM CHLORIDE 0.9% 100 ML IVPB SCH (12:41)
--- NOTE | 2020-02-08 13:48 | P.CONS ---
History of Present Illness - Reason for Consult Consult date: 02/07/20 Anemia Requesting physician: Jah Marsh - Chief Complaint Nausea, vomiting, fever - History of Present Illness 64-year-old female with a medical history which is significant for recent diagnosis of atrial fibrillation, hypertension, recent admission for GI bleeds with suspicion for diverticular bleed with findings of diverticulosis on colonoscopy and EGD which was negative for any acute signs of bleeding who presented back to the hospital due to recent symptoms of nausea, vomiting, diarrhea and fever. The patient reports 5 days of symptoms and presented to the hospital for further evaluation. She denies any signs or symptoms of GI bleeding. She denies any NSAID use at home. The patient was discovered to have atrial fibrillation on recent hospitalization and plan was for initiation of anticoagulation therapy. She reports generalized weakness in association with her symptoms. As mentioned EGD on recent hospitalization was negative for any acute signs of bleeding and colonoscopy on 01/22/2020 was significant for large polypectomy with Endo Clip placement and pandiverticulosis without a source of bleeding noted. On current presentation patient was found to be anemic with hemoglobin of 7.1, stable from discharge hemoglobin of 7.4 with a WBC of 9.6, platelet count 335,000, INR 1.5, total bilirubin 2.3, alkaline phosphatase 83, AST 27 and ALT 12. She had a KUB x-ray with overall nonspecific nonobstructing bowel gas pattern noted. Review of Systems REVIEW OF SYSTEMS: CONSTITUTIONAL: Denies any weight change but she does report fevers, chills and fatigue. CARDIOVASCULAR: Denies any chest pain, palpitations high or low blood pressures, she does have a known history of atrial fibrillation RESPIRATORY: Denies any shortness of breath, hemoptysis or cough. GENITOURINARY: No dysuria or hematuria. MUSCULOSKELETAL: No weakness reported. SKIN: Denies any new rashes or lesions, jaundice or pallor. PSYCHIATRIC: Denies any depression or anxiety. NEUROLOGY: Denies headache, denies any new focal deficits. EARS/NOSE/THROAT: No recent hearing change, congestion, nasal discharge or sore throat. EYES: No pain in eyes, discharge or change in vision. GASTROINTESTINAL: As per HPI. Past Medical History Past Medical History: Atrial Fibrillation, Heart Failure History of Any Multi-Drug Resistant Organisms: None Reported Past Surgical History: Section Additional Past Surgical History / Comment(s): D&C Past Anesthesia/Blood Transfusion Reactions: No Reported Reaction Past Psychological History: No Psychological Hx Reported Smoking Status: Never smoker Past Alcohol Use History: None Reported Past Drug Use History: None Reported - Past Family History Father Additional Family Medical History / Comment(s): Heart problems. Mother Family Medical History: Dementia, Musculoskeletal Disorder, Neurologic Disorder Additional Family Medical History / Comment(s): Mother had alzheimer's and parkinsons Medications and Allergies Home Medications Medication Instructions Recorded Confirmed Type Furosemide [Lasix] 20 mg PO TID 01/18/20 02/07/20 History Metoprolol Succinate [Toprol XL] 25 mg PO W/SUPPER 01/18/20 02/07/20 History lisinopriL 20 mg PO DAILY 01/18/20 02/07/20 History Nystatin [Nystop] 1 applic TOPICAL DAILY PRN 02/07/20 02/07/20 History Pantoprazole Sodium [Protonix] 40 mg PO AC-SUPPER 02/07/20 02/07/20 History Spironolactone 25 mg PO W/LUNCH 02/07/20 02/07/20 History Allergies Allergy/AdvReac Type Severity Reaction Status Date / Time codeine Allergy Rash/Hives Verified 02/07/20 12:59 erythromycin base Allergy Rash/Hives Verified 02/07/20 12:59 Sulfa (Sulfonamide Allergy Itching Verified 02/07/20 12:59 Antibiotics) Physical Exam Vitals: Vital Signs Temp Pulse Resp BP Pulse Ox 02/07/20 14:58 99.4 F 109 H 18 115/71 95 02/07/20 11:55 99.0 F 117 H 18 102/56 100 Intake and Output 02/07/20 02/07/20 02/07/20 06:59 14:59 22:59 Other: Weight 99.79 kg On physical examination, patient appears comfortable in no apparent distress. HEAD: Normocephalic, atraumatic. EYES: No scleral icterus. No conjunctival injection. MOUTH: No lesions, tongue midline. NECK: Trachea midline, no gross abnormalities. CHEST: Clear to auscultation with no wheezing or rhonchi appreciated. HEART: Irregularly irregular, S1-S2 appreciated. ABDOMEN: Soft, obese. Bowel sounds are positive. No organomegaly. No guarding or rigidity. EXTREMITIES: No pedal edema. SKIN: No rashes, no jaundice. NEUROLOGIC: Alert and oriented x3. No focal deficits. Results CBC & Chem 7: 02/08/20 08:10 02/07/20 12:23 Labs: Abnormal Lab Results - Last 24 Hours (Table) 02/07/20 02/07/20 02/07/20 Range/Units 12:23 12:23 12:50 RBC 2.80 L (3.80-5.40) m/uL Hgb 7.1 L (11.4-16.0) gm/dL Hct 23.8 L (34.0-46.0) % MCHC 29.7 L (31.0-37.0) g/dL RDW 18.9 H (11.5-15.5) % PT 14.5 H (9.0-12.0) sec INR 1.5 H (<1.2) Sodium 135 L (137-145) mmol/L BUN 22 H (7-17) mg/dL Calcium 8.1 L (8.4-10.2) mg/dL Total Bilirubin 2.3 H (0.2-1.3) mg/dL Albumin 3.4 L (3.5-5.0) g/dL Urine Appearance (Clear) Urine Protein (Negative) Urine Blood (Negative) Ur Leukocyte Esterase (Negative) Urine RBC (0-5) /hpf Urine WBC (0-5) /hpf Urine Bacteria (None) /hpf Hyaline Casts (0-2) /lpf Urine Mucus (None) /hpf 02/07/20 Range/Units 14:38 RBC (3.80-5.40) m/uL Hgb (11.4-16.0) gm/dL Hct (34.0-46.0) % MCHC (31.0-37.0) g/dL RDW (11.5-15.5) % PT (9.0-12.0) sec INR (<1.2) Sodium (137-145) mmol/L BUN (7-17) mg/dL Calcium (8.4-10.2) mg/dL Total Bilirubin (0.2-1.3) mg/dL Albumin (3.5-5.0) g/dL Urine Appearance Cloudy H (Clear) Urine Protein Trace H (Negative) Urine Blood Trace H (Negative) Ur Leukocyte Esterase Large H (Negative) Urine RBC 14 H (0-5) /hpf Urine WBC 133 H (0-5) /hpf Urine Bacteria Many H (None) /hpf Hyaline Casts 15 H (0-2) /lpf Urine Mucus Occasional H (None) /hpf Abdominal x-ray: report reviewed (KUB x-ray with overall nonspecific nonobstructive bowel gas pattern) Assessment and Plan (1) Iron deficiency anemia Narrative/Plan: 64-year-old female with multiple medical comorbidities including recent di agnosis of atrial fibrillation and recent hospitalization for a GI bleed who presents back to the hospital with a constellation of symptoms including nausea, vomiting, fatigue and fevers. Currently patient is being evaluated for possible pneumonia versus fluid overload from congestive heart failure. Patient was found to be anemic on presentation with a hemoglobin of 7.1, however on review of the records discharge hemoglobin was 7.4. Laboratory evaluation significant for severe iron deficiency anemia, likely related to her recent GI bleed. However, at this time there are no further signs or symptoms of GI bleeding. Current Visit: Yes Status: Acute Code(s): D50.9 - IRON DEFICIENCY ANEMIA, UNSPECIFIED SNOMED Code(s): 20376995 (2) Diverticulosis Current Visit: Yes Status: Acute Code(s): K57.90 - DVRTCLOS OF INTEST, PART UNSP, W/O PERF OR ABSCESS W/O BLEED SNOMED Code(s): 278402782 (3) Adenomatous colon polyp Current Visit: Yes Status: Acute Code(s): D12.6 - BENIGN NEOPLASM OF COLON, UNSPECIFIED SNOMED Code(s): 095933284 Plan: Supportive care Okay for diet as tolerated Continue to monitor hemoglobin and hematocrit and transfuse as needed Iron studies ordered and consistent with severe iron deficiency anemia Iron infusion will be ordered 3 doses and patient should be sent on oral iron therapy Continue to monitor stool output Continue Protonix therapy No plans for endoscopic evaluation at this time Continue other medical management per primary team Thank you for allowing us to participate in the care of the patient we will continue to follow
--- NOTE | 2020-02-08 14:08 | P.PN ---
Subjective Progress Note Date: 02/08/20 Principal diagnosis: Anemia The patient was seen and examined at bedside. She states that she had some nausea, vomiting, and diarrhea that began approximately 5 days ago. She had a visiting nurse come to the house which took her temperature with her highest temperature being at 102. She was sent in to the emergency room for evaluation and was found to have left lower lobe pneumonia and anemia. The patient has a past medical history of atrial fibrillation she is not currently on any blood thinners, denies any NSAIDs. She had a recent hospitalization for a GI bleed and underwent a colonoscopy on 01/22/2020 with Endo Clip placement. She denies any further nausea, vomiting, or diarrhea since hospitalization. She denies any abdominal pain or bleeding. Her admission WBC 9.6, hemoglobin was 7.1, hematocrit 23.8 and INR 1.5. Today's hemoglobin is 7.6, iron 6, TIBC 383, percent saturation 1.57, ferritin 16.7 and vitamin B12 945. Objective - Vital Signs Vital signs: Vital Signs Temp 98.0 F 02/08/20 07:00 Pulse 78 02/08/20 07:00 Resp 16 02/08/20 08:44 BP 110/64 02/08/20 07:00 Pulse Ox 97 02/08/20 07:00 Intake & Output 02/07/20 02/08/20 02/08/20 18:59 06:59 18:59 Intake Total 350 Balance 350 Weight 99.79 kg Intake: Oral 350 Other: Voiding Method Toilet Toilet Toilet # Voids 3 - Exam General appearance: The patient is alert, oriented, in no acute distress. Obese. HET: Head is normocephalic and atraumatic. Sclera non-icteric Neck: Supple without lymphadenopathy. Trachea midline. Heart: S1 S2. Regular rate and rhythm. Lungs: No crackles or wheezes are heard. Abdomen: Soft, nontender, nondistended with bowel sounds. Extremities: Normal skin color and turgor. Mild bilateral lower extremity edema Neurological: No focal deficits. - Labs CBC & Chem 7: 02/08/20 08:10 02/07/20 12:23 Labs: Abnormal Lab Results - Last 24 Hours (Table) 02/07/20 02/07/20 02/07/20 Range/Units 12:23 12:23 12:23 RBC (3.80-5.40) m/uL Hgb (11.4-16.0) gm/dL Hct (34.0-46.0) % MCH (25.0-35.0) pg MCHC (31.0-37.0) g/dL RDW (11.5-15.5) % Retic Count (0.5-2.0) % PT 14.5 H (9.0-12.0) sec INR 1.5 H (<1.2) Sodium 135 L (137-145) mmol/L BUN 22 H (7-17) mg/dL Calcium 8.1 L (8.4-10.2) mg/dL Iron (50-170) ug/dL % Saturation (12.00-45.00) Total Bilirubin 2.3 H (0.2-1.3) mg/dL Albumin 3.4 L (3.5-5.0) g/dL Vitamin B12 (200.0-944.0) pg/mL Procalcitonin 0.28 H (0.02-0.09) ng/mL Urine Appearance (Clear) Urine Protein (Negative) Urine Blood (Negative) Ur Leukocyte Esterase (Negative) Urine RBC (0-5) /hpf Urine WBC (0-5) /hpf Urine Bacteria (None) /hpf Hyaline Casts (0-2) /lpf Urine Mucus (None) /hpf 02/07/20 02/07/20 02/07/20 Range/Units 12:23 12:50 12:50 RBC 2.80 L (3.80-5.40) m/uL Hgb 7.1 L (11.4-16.0) gm/dL Hct 23.8 L (34.0-46.0) % MCH (25.0-35.0) pg MCHC 29.7 L (31.0-37.0) g/dL RDW 18.9 H (11.5-15.5) % Retic Count 2.5 H (0.5-2.0) % PT (9.0-12.0) sec INR (<1.2) Sodium (137-145) mmol/L BUN (7-17) mg/dL Calcium (8.4-10.2) mg/dL Iron 6 L (50-170) ug/dL % Saturation 1.57 L (12.00-45.00) Total Bilirubin (0.2-1.3) mg/dL Albumin (3.5-5.0) g/dL Vitamin B12 945.0 H (200.0-944.0) pg/mL Procalcitonin (0.02-0.09) ng/mL Urine Appearance (Clear) Urine Protein (Negative) Urine Blood (Negative) Ur Leukocyte Esterase (Negative) Urine RBC (0-5) /hpf Urine WBC (0-5) /hpf Urine Bacteria (None) /hpf Hyaline Casts (0-2) /lpf Urine Mucus (None) /hpf 02/07/20 02/08/20 Range/Units 14:38 08:10 RBC 3.04 L (3.80-5.40) m/uL Hgb 7.6 L (11.4-16.0) gm/dL Hct 26.4 L (34.0-46.0) % MCH 24.9 L (25.0-35.0) pg MCHC 28.8 L (31.0-37.0) g/dL RDW 18.9 H (11.5-15.5) % Retic Count (0.5-2.0) % PT (9.0-12.0) sec INR (<1.2) Sodium (137-145) mmol/L BUN (7-17) mg/dL Calcium (8.4-10.2) mg/dL Iron (50-170) ug/dL % Saturation (12.00-45.00) Total Bilirubin (0.2-1.3) mg/dL Albumin (3.5-5.0) g/dL Vitamin B12 (200.0-944.0) pg/mL Procalcitonin (0.02-0.09) ng/mL Urine Appearance Cloudy H (Clear) Urine Protein Trace H (Negative) Urine Blood Trace H (Negative) Ur Leukocyte Esterase Large H (Negative) Urine RBC 14 H (0-5) /hpf Urine WBC 133 H (0-5) /hpf Urine Bacteria Many H (None) /hpf Hyaline Casts 15 H (0-2) /lpf Urine Mucus Occasional H (None) /hpf Microbiology - Last 24 Hours (Table) 02/07/20 14:38 Urine Culture - Preliminary Urine,Voided Assessment and Plan Assessment: (1) Iron deficiency anemia Narrative/Plan: 64-year-old female with multiple medical comorbidities including recent diagnosis of atrial fibrillation and recent hospitalization for a GI bleed who presents back to the hospital with a constellation of symptoms including nausea, vomiting, fatigue and fevers. Currently patient is being evaluated for possible pneumonia versus fluid overload from congestive heart failure. Patient was found to be anemic on presentation with a hemoglobin of 7.1, however on review of the records discharge hemoglobin was 7.4. Laboratory evaluation significant for severe iron deficiency anemia, likely related to her recent GI bleed. However, at this time there are no further signs or symptoms of GI bleeding. Current Visit: Yes Status: Acute Code(s): D50.9 - IRON DEFICIENCY ANEMIA, UNSPECIFIED SNOMED Code(s): 93236267 (2) Diverticulosis Current Visit: Yes Status: Acute Code(s): K57.90 - DVRTCLOS OF INTEST, PART UNSP, W/O PERF OR ABSCESS W/O BLEED SNOMED Code(s): 807065743 (3) Adenomatous colon polyp Current Visit: Yes Status: Acute Code(s): D12.6 - BENIGN NEOPLASM OF COLON, UNSPECIFIED SNOMED Code(s): 335497428 Plan: Supportive care Okay for diet as tolerated Continue to monitor hemoglobin and hematocrit and transfuse as needed Iron studies ordered and consistent with severe iron deficiency anemia Iron infusion will be ordered 3 doses and patient should be sent on oral iron therapy Continue to monitor stool output Continue Protonix therapy No plans for endoscopic evaluation at this time Continue other medical management per primary team Thank you for allowing us to participate in the care of the patient we will continue to follow The impression and plan of care has been dictated as directed. I performed a history and examination of this patient, discussed the same with the dictator. I agree with the dictator's note ,documented as a scribe. Any additional findings or plans will be noted.
[2020-02-08] MEDS: METOPROLOL SUCCINATE (ER) 25 MG TAB.ER.24H PO SCH (17:10)
--- NOTE | 2020-02-08 22:19 | P.HPIM ---
History of Present Illness H&P Date: 02/08/20 Chief Complaint: fever, weakness Paulette High is a 64 yo F with PMH of A fib, chronic systolic CHF, recent admission for GI bleed who presents back to the hospital with nausea, vomiting, fever and weakness. She reports that a few days ago she ate something that might not have been cooked all the way and afterwards vomited multiple times and also had a fever. She has continued to have some persistent weakness since then so saw her PCP who recommended she present to the ED. She denies any recent chest pain, cough, hematochezia or melena. She does endorse dyspnea with exertion. On presentation T 99, tachycardic, WBC 9k, hgb 7.1, procalcitonin elevated at 0.28. CXR with cardiomegaly and L basilar infiltrate. Review of Systems All systems: negative Constitutional: Reports fever, Reports malaise, Reports sweats, Reports weakness, Denies chills Eyes: denies blurred vision, denies pain Ears, nose, mouth and throat: Denies headache, Denies sore throat Cardiovascular: Reports dyspnea on exertion, Denies chest pain, Denies shortness of breath Respiratory: Denies cough Gastrointestinal: Denies abdominal pain, Denies diarrhea, Denies nausea, Denies vomiting Genitourinary: Denies dysuria, Denies hematuria Musculoskeletal: Denies myalgias Integumentary: Denies pruritus, Denies rash Neurological: Denies numbness, Denies weakness Psychiatric: Denies anxiety, Denies depression Endocrine: Denies fatigue, Denies weight change Past Medical History Past Medical History: Atrial Fibrillation, Heart Failure Additional Past Medical History / Comment(s): Pt recently admitted to [facility] on 01/18/20 with acute blood loss anemia-source undetermined/possible FI, hyponatremia, hypochloremia. Other hx: Pt states she was told approximately 20 yrs ago that she had had a IA/EKG, diverticulosis, benign colon polyps, hemorrhoids, bronchtis. History of Any Multi-Drug Resistant Organisms: None Reported Past Surgical History: Section Additional Past Surgical History / Comment(s): D&C Past Anesthesia/Blood Transfusion Reactions: No Reported Reaction Past Psychological History: No Psychological Hx Reported Smoking Status: Never smoker Past Alcohol Use History: None Reported Past Drug Use History: None Reported - Past Family History Father Additional Family Medical History / Comment(s): Heart problems. Mother Family Medical History: Dementia, Musculoskeletal Disorder, Neurologic Disorder Additional Family Medical History / Comment(s): Mother had alzheimer's and parkinsons Medications and Allergies Home Medications Medication Instructions Recorded Confirmed Type Furosemide [Lasix] 20 mg PO TID 01/18/20 02/07/20 History Metoprolol Succinate [Toprol XL] 25 mg PO W/SUPPER 01/18/20 02/07/20 History lisinopriL 20 mg PO DAILY 01/18/20 02/07/20 History Nystatin [Nystop] 1 applic TOPICAL DAILY PRN 02/07/20 02/07/20 History Pantoprazole Sodium [Protonix] 40 mg PO AC-SUPPER 02/07/20 02/07/20 History Spironolactone 25 mg PO W/LUNCH 02/07/20 02/07/20 History Allergies Allergy/AdvReac Type Severity Reaction Status Date / Time codeine Allergy Rash/Hives Verified 02/07/20 12:59 erythromycin base Allergy Rash/Hives Verified 02/07/20 12:59 Sulfa (Sulfonamide Allergy Itching Verified 02/07/20 12:59 Antibiotics) Physical Exam Vitals: Vital Signs Temp Pulse Resp BP Pulse Ox 02/08/20 16:00 18 02/08/20 14:44 97.4 F L 59 L 18 103/71 99 02/08/20 08:44 16 02/08/20 07:00 98.0 F 78 16 110/64 97 02/08/20 02:10 98.8 F 98 18 111/71 96 02/08/20 00:00 92 16 Intake and Output 02/08/20 02/08/20 02/08/20 06:59 14:59 22:59 Intake Total 650 200 Balance 650 200 Intake: Intake, IV Titration 100 Amount Sodium Ferric Gluconat- 100 Sucrose 125 mg In Sodium Chloride 0.9% 100 ml @ 100 mls/hr IVPB DAILY [facility] Rx#:[id number] Oral 550 200 Other: Voiding Method Toilet Toilet Toilet # Voids 3 2 General: well nourished, well developed, NAD. Vitals reviewed Eyes: PERRL, EOMI, conjunctiva normal HENT: normocephalic, mucus membranes moist Neck: supple, no JVD Lungs: normal respiratory effort, no wheezes or rales CV: Regular rate and rhythm, no murmur. Peripheral pulses 2+ Abdomen: soft, nondistended, no organomegaly Lymph: no cervical or axillary LAD Skin: warm and dry. Neuro: A&Ox3, normal mood and affect Results CBC & Chem 7: 02/08/20 08:10 02/07/20 12:23 Labs: Abnormal Lab Results - Last 24 Hours (Table) 02/07/20 02/08/20 Range/Units 12:23 08:10 RBC 3.04 L (3.80-5.40) m/uL Hgb 7.6 L (11.4-16.0) gm/dL Hct 26.4 L (34.0-46.0) % MCH 24.9 L (25.0-35.0) pg MCHC 28.8 L (31.0-37.0) g/dL RDW 18.9 H (11.5-15.5) % Iron 6 L (50-170) ug/dL % Saturation 1.57 L (12.00-45.00) Microbiology - Last 24 Hours (Table) 02/07/20 14:38 Urine Culture - Preliminary Urine,Voided Gram Neg Bacilli 02/07/20 12:23 Blood Culture - Preliminary Blood No Growth after 24 hours Thrombosis Risk Factor Assmnt - Choose All That Apply Any of the Below Risk Factors Present?: Yes Each Factor Represents 1 point: Obesity (BMI >25), Serious lung disease incl. pneumonia (< 1month) Each Risk Factor Represents 2 Points: Age 61-74 years Other congenital or acquired thrombophilia - If yes, enter type in comment: No Thrombosis Risk Factor Assessment Total Risk Factor Score: 4 Thrombosis Risk Factor Assessment Level: Moderate Risk Assessment and Plan (1) Aspiration pneumonia Current Visit: Yes Status: Acute Code(s): J69.0 - PNEUMONITIS DUE TO INHALATION OF FOOD AND VOMIT SNOMED Code(s): 091627758 (2) Iron deficiency anemia Current Visit: Yes Status: Acute Code(s): D50.9 - IRON DEFICIENCY ANEMIA, UNSPECIFIED SNOMED Code(s): 98293470 (3) Chronic systolic CHF (congestive heart failure), NYHA class 2 Current Visit: Yes Status: Acute Code(s): I50.22 - CHRONIC SYSTOLIC (CONGESTIVE) HEART FAILURE SNOMED Code(s): 526378750 (4) Atrial fibrillation Current Visit: Yes Status: Acute Code(s): I48.91 - UNSPECIFIED ATRIAL FIBRILLATION SNOMED Code(s): 13939700 (5) Diverticulosis Current Visit: Yes Status: Acute Code(s): K57.90 - DVRTCLOS OF INTEST, PART UNSP, W/O PERF OR ABSCESS W/O BLEED SNOMED Code(s): 615526878 Plan: 1. Aspiration pneumonia, suspect secondary to food poisoning. Nausea/vomiting now resolved. Start IV rocephin 2. Chronic systolic CHF. Doubt fluid overload, continue home lasix 20 mg tid, aldactone 3. Iron deficiency anemia; recent GI bleed. GI consulted, start IV iron 4. A fib, continue metoprolol. Anticoagulation contraindicated at this time
[2020-02-09] MEDS: SODIUM CHLORIDE 0.9% 1,000 ML IV SCH ×3 (06:21→21:20)
[2020-02-09 07:58] LABS: Anisocytosis Slight; Basophils % (A) 1 %; Eosinophils # (A) 0.4 k/uL (0-0.7); Eosinophils % (A) 6 %; HCT 24.5 % (34.0-46.0); HGB 7.3 gm/dL (11.4-16.0); Hypochromasia Marked; Lymphocytes # (A) 1.3 k/uL (1.0-4.8); Lymphocytes % (A) 21 %; MCH 25.2 pg (25.0-35.0); MCHC 29.7 g/dL (31.0-37.0); Mean Platelet Volume 9.1; Microcytosis Slight; Monocytes # (A) 0.3 k/uL (0-1.0); Monocytes % (A) 5 %; Neutrophils # (A) 3.9 k/uL (1.3-7.7); Neutrophils % (A) 65 %; Platelet Count 338 k/uL (150-450); Poikilocytosis Moderate; RBC 2.88 m/uL (3.80-5.40); RDW 19.5 % (11.5-15.5)
[2020-02-09 08:10] LABS: African American GFR (CKD) >90 (>60 ml/min/1.73 sqM); Anion Gap 7 mmol/L; Blood Urea Nitrogen 15 mg/dL (7-17); Calcium 8.1 mg/dL (8.4-10.2); Carbon Dioxide 27 mmol/L (22-30); Chloride 102 mmol/L (98-107); Glucose 85 mg/dL (74-99); Non-African American GFR(CKD) 83 (>60 ml/min/1.73 sqM); Potassium 3.8 mmol/L (3.5-5.1); Sodium 136 mmol/L (137-145)
[2020-02-09] MEDS: FUROSEMIDE 20 MG TAB PO SCH ×3 (08:53→17:26)
[2020-02-09] MEDS: PANTOPRAZOLE 40 MG/10 ML VIAL IVP SCH ×2 (08:53→21:19)
[2020-02-09] MEDS: lisinopriL 20 MG TAB PO SCH (08:53)
[2020-02-09] MEDS: SODIUM FERRIC GLUCONAT-SUCROSE 125 MG in SODIUM CHLORIDE 0.9% 100 ML IVPB SCH (09:49)
[2020-02-09] MEDS: SPIRONOLACTONE 25 MG TAB PO SCH (13:42)
[2020-02-09] MEDS: METOPROLOL SUCCINATE (ER) 25 MG TAB.ER.24H PO SCH (17:26)
--- NOTE | 2020-02-09 17:47 | PN ---
PROGRESS NOTE DATE OF SERVICE: 02/09/2020 I am covering for Dr. Marsh. INTERVAL HISTORY: This 64-year-old woman was admitted with fever, possible pneumonia and possible UTI, also had significant anemia. Hemoglobin was found to be 7.1, 7.6 and 7.3. The primary physician was concerned and was in the hospital for transfusion at this time. There is no history of fever, rigors, chills at this time. Patient also had endoscopes previously. The patient had a colonoscopy and polypectomy with Endoclip placement by Dr. Del Castillo. Old hemolyzed blood was noted throughout the entire colon but no bright red active bleeding was noted in the small bowel on intubation of the terminal ileum. Moderate elias-diverticulosis was also noted. The upper endoscopy done on 01/21/2020 showed mild gastritis in the antrum and body. The patient interestingly also had history of epistaxis in her sister and also history of anemia in her brother. Iron deficiency is suspected and the patient is receiving IV iron at this time. No chest pain. No palpitations. PAST MEDICAL HISTORY: Reviewed. REVIEW OF SYSTEMS: CARDIOVASCULAR SYSTEM: No angina. RESPIRATORY: As mentioned earlier. GI: As mentioned earlier. : No dysuria. NERVOUS: No numbness or weakness. HEMATOLOGY: As mentioned earlier. CURRENT MEDICATIONS: Reviewed and include Tylenol p.r.n., Rocephin 1 gram, iron sulfate, Lasix, Zestril, Toprol-XL, Narcan, Protonix, Aldactone. PHYSICAL EXAMINATION: GENERAL: Patient is alert and oriented times three. VITAL SIGNS: Pulse 89, blood pressure 116/76, respirations 20, temperature 97.4, pulse ox 92% on room air HEENT: Conjunctivae are pale. Oral mucosa moist. NECK: No jugular venous distention. No carotid bruit. No lymph node enlargement. RESPIRATORY: Breath sounds diminished at the bases. No rhonchi, no crackles. HEART: S1 and S2, muffled. No S3 or S4. ABDOMEN: Soft, no tenderness. No masses palpable. EXTREMITIES: No edema, no swelling. NERVOUS: No focal deficits. LABS: At this time shows WBC 6.5, hemoglobin 7.2, sodium 136. ASSESSMENT: 1. Anemia, possibly acute on chronic blood-loss anemia with weakness and symptomatic anemia. 2. Possible aspiration pneumonia. 3. Atrial fibrillation. 4. Urinary tract infection with E coli present on admission. 5. Iron deficiency anemia, acute blood loss anemia. 6. History of congestive heart failure. 7. History of hyponatremia. 8. History of hypochloremia. 9. History of section. RECOMMENDATIONS AND DISCUSSION: In this 64-year-old woman who presented with multiple complex medical issues, we will monitor the patient closely. I would recommend 1 unit transfusion. Continue with IV iron. Otherwise, symptomatic treatment with Protonix. DVT prophylaxis. Avoid antiplatelets and anticoagulants at this time. The possibility of congenital family disorders like hereditary hemorrhagic telangectasia is a concern. Further recommendations to follow. MMODL / IJN: [id number] /
[2020-02-10] MEDS: SODIUM CHLORIDE 0.9% 1,000 ML IV SCH ×2 (03:49→13:04)
[2020-02-10] MEDS: lisinopriL 20 MG TAB PO SCH (08:27)
[2020-02-10] MEDS: PANTOPRAZOLE 40 MG/10 ML VIAL IVP SCH ×2 (08:27→21:54)
[2020-02-10] MEDS: FUROSEMIDE 20 MG TAB PO SCH ×3 (08:27→17:22)
[2020-02-10 09:05] LABS: African American GFR (CKD) >90 (>60 ml/min/1.73 sqM); Anion Gap 10 mmol/L; Blood Urea Nitrogen 14 mg/dL (7-17); Calcium 8.6 mg/dL (8.4-10.2); Carbon Dioxide 23 mmol/L (22-30); Chloride 105 mmol/L (98-107); Glucose 115 mg/dL (74-99); Non-African American GFR(CKD) 88 (>60 ml/min/1.73 sqM); Potassium 3.9 mmol/L (3.5-5.1); Sodium 138 mmol/L (137-145)
[2020-02-10 09:20] LABS: Anisocytosis Slight; HCT 33.4 % (34.0-46.0); Hypochromasia Marked; MCH 24.7 pg (25.0-35.0); MCHC 28.2 g/dL (31.0-37.0); MCV 87.7 fL (80.0-100.0); Mean Platelet Volume 9.3; Platelet Count 359 k/uL (150-450); Poikilocytosis Moderate; RDW 19.8 % (11.5-15.5)
[2020-02-10 09:22] LABS: HGB 9.4 gm/dL (11.4-16.0)
[2020-02-10] MEDS: SODIUM FERRIC GLUCONAT-SUCROSE 125 MG in SODIUM CHLORIDE 0.9% 100 ML IVPB SCH (09:45)
[2020-02-10] MEDS: ACETAMINOPHEN TAB 325 MG TAB PO PRN ×2 (09:48→21:54)
[2020-02-10 10:42] LABS: Myelocytes # (M) 0.08 k/uL (0); Myelocytes % 1 %; Neutrophils % (M) 76 %; Nucleated Red Blood Cells 3 /100 WBC (0-0); Total Cells Counted 200
[2020-02-10 10:43] LABS: Eosinophils # (M) 0.48 k/uL (0-0.7); Lymphocytes # (M) 1.12 k/uL (1.0-4.8); Monocytes # (M) 0.32 k/uL (0-1.0); Neutrophils # (M) 6.08 k/uL (1.3-7.7); Polychromasia Present
[2020-02-10 10:44] LABS: Target Cells Present
[2020-02-10] MEDS: SPIRONOLACTONE 25 MG TAB PO SCH (12:28)
[2020-02-10] MEDS: METOPROLOL SUCCINATE (ER) 25 MG TAB.ER.24H PO SCH (17:22)
--- NOTE | 2020-02-10 23:15 | PN ---
PROGRESS NOTE DATE OF SERVICE: 02/10/2020 I am covering for Dr. Marsh. This 64-year-old woman was admitted with multiple issues including UTI and also also had anemia also after transfusion hemoglobin improved significantly. Patient had a detailed extensive GI workup, but the patient had multiple episodes of epistaxis history in the family. IV iron also has been given. Hemoglobin today is 9.5 after transfusion. PAST MEDICAL HISTORY: Reviewed. REVIEW OF SYSTEMS: CARDIOVASCULAR SYSTEM: No angina, palpitations. RESPIRATORY SYSTEM: As mentioned earlier. GI: As mentioned earlier. : No dysuria. NERVOUS SYSTEM: No numbness or weakness. CURRENT MEDICATIONS: Current medications are reviewed and include Tylenol, Rocephin 1 gram, iron sulfate, Lasix, Zestril, Toprol XL, Narcan, Protonix, Aldactone. PHYSICAL EXAMINATION: The patient is alert and oriented x3. Pulse is 76, blood pressure 106/77, respiration 17, temperature 97.7, pulse ox 91% on room air. HEENT: Conjunctivae normal. NECK: No JVD. CARDIOVASCULAR: S1, S2 muffled. RESPIRATORY: Breath sounds diminished at the bases. A few scattered rhonchi and crackles. ABDOMEN: Soft, nontender. LEGS: No edema. No swelling. NERVOUS SYSTEM: No focal deficits. LABS: WBC 8, hemoglobin 9.4, otherwise glucose 115. ASSESSMENT: 1. Anemia possibly acute on chronic blood-loss anemia possibly acute gastrointestinal blood loss. 2. Rule out hereditary hemorrhagic telangiectasia. 3. Weakness and symptomatic anemia. 4. Possible aspiration pneumonia. 5. Atrial fibrillation, chronic. 6. Urinary tract infection with Escherichia coli, present on admission. 7. Iron deficiency anemia secondary to acute blood loss anemia. 8. History of congestive heart failure, ejection fraction unknown. 9. History of hyponatremia. 10.History of hypochloremia. 11.History of section. RECOMMENDATIONS AND DISCUSSION: Recommend to continue current medications, continue symptomatic treatment. Otherwise, one unit transfusion has been given, we will monitor the hemoglobin closely. I would also recommend outpatient evaluation and periodic hemoglobin estimations and transfusion also if hemoglobin less than 8 and symptomatic. Otherwise we will continue to monitor antibiotics. Discussed with Dr. Marsh in followup. MMODL / IJN: [id number] /
[2020-02-11] MEDS: lisinopriL 20 MG TAB PO SCH (08:05)
[2020-02-11] MEDS: PANTOPRAZOLE 40 MG/10 ML VIAL IVP SCH (08:06)
[2020-02-11] MEDS: FUROSEMIDE 20 MG TAB PO SCH ×2 (08:06→11:41)
[2020-02-11 08:51] VITALS: BP 127/71; PULSE 76; RESP 18; TEMP 98.4
[2020-02-11] MEDS: SODIUM FERRIC GLUCONAT-SUCROSE 125 MG in SODIUM CHLORIDE 0.9% 100 ML IVPB SCH (09:34)
[2020-02-11] MEDS: SPIRONOLACTONE 25 MG TAB PO SCH (11:40)
[2020-02-11 12:13] LABS: African American GFR (CKD) >90 (>60 ml/min/1.73 sqM); Anion Gap 7 mmol/L; Blood Urea Nitrogen 12 mg/dL (7-17); Calcium 8.3 mg/dL (8.4-10.2); Carbon Dioxide 27 mmol/L (22-30); Chloride 103 mmol/L (98-107); Glucose 98 mg/dL (74-99); Non-African American GFR(CKD) >90 (>60 ml/min/1.73 sqM); Potassium 4.1 mmol/L (3.5-5.1); Sodium 137 mmol/L (137-145)
--- NOTE | 2020-02-11 14:06 | US ---
EXAMINATION TYPE: US venous doppler duplex UE RT DATE OF EXAM: 02/11/2020 COMPARISON: NONE CLINICAL HISTORY: r/o dvt . Rt arm pain and swelling x 3 days SIDE PERFORMED: RT Right Arm: Thrombus in Rt cephalic vein prox-distal IMPRESSION: 1. Right upper extremity negative for deep venous thrombosis. 2. Some superficial thrombus within cephalic vein right upper extremity is evident.
[2020-02-11] MEDS ORDERED: bisacodyL 5 MG TABLET.DR PO STA (14:29)
--- NOTE | 2020-02-11 15:30 | P.DS ---
Providers Date of admission: 02/07/20 14:33 Expected date of discharge: 02/11/20 Attending physician: Jah Marsh MD Primary care physician: Maritza Fulton [place] [facility] Course: Final Diagnoses: (1) acute Aspiration pneumonia, suspect secondary to food poisoning Current Visit: Yes Status: Acute Code(s): J69.0 - PNEUMONITIS DUE TO INHALATION OF FOOD AND VOMIT SNOMED Code(s): 072388368 (2) Iron deficiency anemia Current Visit: Yes Status: Acute Code(s): D50.9 - IRON DEFICIENCY ANEMIA, UNSPECIFIED SNOMED Code(s): 15231000 (3) Chronic systolic CHF (congestive heart failure), NYHA class 2 Current Visit: Yes Status: Acute Code(s): I50.22 - CHRONIC SYSTOLIC (CONGESTIVE) HEART FAILURE SNOMED Code(s): 303082255 (4) Atrial fibrillation, anticoagulation contraindicated at this time. Possibility of congenital family disorders like hereditary, hemorrhagic telangectasia is a concern. Further evaluation outpatient in clinic with PCP, this week. Current Visit: Yes Status: Acute Code(s): I48.91 - UNSPECIFIED ATRIAL FIBRILLATION SNOMED Code(s): 33614471 (5) Diverticulosis Current Visit: Yes Status: Acute Code(s): K57.90 - DVRTCLOS OF INTEST, PART UNSP, W/O PERF OR ABSCESS W/O BLEED SNOMED Code(s): 342058040 (6) UTI with E. coli, present on admission (7) Adenomatous colon polyp Current Visit: Yes Status: Acute Code(s): D12.6 - BENIGN NEOPLASM OF COLON, UNSPECIFIED SNOMED Code(s): 621226562 (8) right arm phlebitis Hospital course:64-year-old female history of atrial fibrillation, recent admission for GI bleed presenting with generalized weakness, fever, vomiting. Patient began vomiting approximately 5 days prior to arrival. She had been seen by her primary care physician with this complaint and was sent to the emergency department for evaluation. Patient had recent GI bleed and was started on several new medications. She had vomited on Tuesday which was 5 days ago and then again on Tuesday. For the past 4 days she has not vomited but she has felt weak and his had fever up to 102. She denies cough or URI symptoms. She denies abdominal pain. Denies chest pain or dyspnea. Denies dysuria or hematuria. Maintained on IV antibiotics. Evaluated by GI, no endoscopy studies recommended at this time. Received IV iron. Significant clinical improvement. Patient will be discharged home in a stable condition with guarded prognosis pending ultrasound Doppler of right arm. The impression and plan of care has been dictated as directed. : I performed a history and examination of this patient, discussed the same with the dictator. I agree with the dictator's note ,documented as a scribe. Any additional findings or plans will be noted. Patient Condition at Discharge: Stable Plan - Discharge Summary Discharge Rx Participant: No New Discharge Prescriptions: New Cefuroxime Axetil [Ceftin] 500 mg PO BID 3 Days #6 tab Ferrous Sulfate [Feosol] 325 mg PO DAILY #30 tab Sennosides-Docusate Sodium [Senokot-S] 2 tab PO HS #60 tablet Continue Metoprolol Succinate [Toprol XL] 25 mg PO W/SUPPER lisinopriL 20 mg PO DAILY Furosemide [Lasix] 20 mg PO TID Spironolactone 25 mg PO W/LUNCH Pantoprazole Sodium [Protonix] 40 mg PO AC-SUPPER Nystatin [Nystop] 1 applic TOPICAL DAILY PRN PRN Reason: AFTER SHOWER Discharge Medication List Furosemide [Lasix] 20 mg PO TID 01/18/20 [History] Metoprolol Succinate [Toprol XL] 25 mg PO W/SUPPER 01/18/20 [History] lisinopriL 20 mg PO DAILY 01/18/20 [History] Nystatin [Nystop] 1 applic TOPICAL DAILY PRN 02/07/20 [History] Pantoprazole Sodium [Protonix] 40 mg PO AC-SUPPER 02/07/20 [History] Spironolactone 25 mg PO W/LUNCH 02/07/20 [History] Cefuroxime Axetil [Ceftin] 500 mg PO BID 3 Days #6 tab 02/11/20 [Rx] Ferrous Sulfate [Feosol] 325 mg PO DAILY #30 tab 02/11/20 [Rx] Sennosides-Docusate Sodium [Senokot-S] 2 tab PO HS #60 tablet 02/11/20 [Rx] Follow up Appointment(s)/Referral(s): Jah Marsh MD [STAFF PHYSICIAN] - 02/25/20 2:45 pm (At [facility]) [facility], [NON-STAFF] - Nito Del Castillo MD [STAFF PHYSICIAN] - As Needed Ambulatory/Diagnostic Orders: Complete Blood Count w/diff [LAB.AMB] Time Frame: 3 Days, Location: None Selected
== END 2020-02-11 15:25 | disposition home health service (06) | DRG 178 ==
LOC: EC 11:39 → 4SSUR 14:33
PROVIDERS: ADMIT Family Medicine; ATTEND Family Medicine
DX: J69.0 Pneumonitis due to inhalation of food and vomit (principal); N39.0 Urinary tract infection, site not specified; D62 Acute posthemorrhagic anemia; I48.20 Chronic atrial fibrillation, unspecified; I50.22 Chronic systolic (congestive) heart failure; B96.20 Unspecified Escherichia coli [E. coli] as the cause of diseases classified elsewhere; D12.6 Benign neoplasm of colon, unspecified; D50.9 Iron deficiency anemia, unspecified; I11.0 Hypertensive heart disease with heart failure; I80.8 Phlebitis and thrombophlebitis of other sites; K29.70 Gastritis, unspecified, without bleeding; K57.90 Diverticulosis of intestine, part unspecified, without perforation or abscess without bleeding; Z87.19 Personal history of other diseases of the digestive system; Z79.899 Other long term (current) drug therapy; Z82.0 Family history of epilepsy and other diseases of the nervous system; Z82.49 Family history of ischemic heart disease and other diseases of the circulatory system; N20.0 Calculus of kidney; E66.9 Obesity, unspecified; Z68.37 Body mass index [BMI] 37.0-37.9, adult; Z88.1 Allergy status to other antibiotic agents; Z88.5 Allergy status to narcotic agent; Z88.8 Allergy status to other drugs, medicaments and biological substances; I78.0 Hereditary hemorrhagic telangiectasia; A05.9 Bacterial foodborne intoxication, unspecified; I25.2 Old myocardial infarction
CPT/HCPCS: 36415; 71046; 74018; 80048; 80053; 81001; 82607; 82728; 82746; 83540; 83550; 83605; 83735; 84145; 85025; 85045; 85610; 85730; 86850; 86900; 86901; 86920; 87040; 87077; 87086; 87186; 93005; 96374; 96375; 99285

== ENCOUNTER → 2020-02-29 | Day surgery (SDC) | payer MEDICARE ==
[2020-02-26 15:35] VITALS: BMI 34.4
[~2020-02-29] MED LIST: ALPRAZolam 0.25 MG TAB PO PRN; ALPRAZolam 0.5 MG TAB PO PRN; ASPIRIN 325 MG TAB PO ONE; ATORVASTATIN 80 MG TAB PO ONE; BENZOCAINE SPRAY 1 CAN MUCOUS MEM ONE; FERROUS SULFATE 325 MG TAB PO SCH; HEPARIN SODIUM 1,000 UN/ML (10ML VL) IV ONE; IOPAMIDOL-370 100ML BTL INJ ONE; LIDOCAINE 1% INJ 10MG/ML (20 ML MDV) SQ ONE; METOPROLOL SUCCINATE (ER) 25 MG TAB.ER.24H PO SCH; MIDAZOLAM 2 MG/2 ML VIAL IVP ONE; NITROGLYCERIN SL TABS 0.4 MG TAB SUBLINGUAL PRN; NYSTATIN 100,000 UNIT/GM POWD 15 GM TOPICAL PRN; PANTOPRAZOLE 40 MG TABLET PO SCH; RX INFO: IV CONTRAST WAS GIVEN 1 EACH MISC MISCELLANE PRN; SODIUM CHLORIDE 0.9% 1,000 ML IV SCH; SODIUM CHLORIDE 0.9% 1,000 ML in EMPTY BAG 1 BAG IV ONE; SPIRONOLACTONE 25 MG TAB PO SCH; VERAPAMIL SYRINGE (5 MG/10 ML) INTRAARTER ONE; fentaNYL (PF) 50 MCG/ML 2 ML AMP IVP ONE; fentaNYL (PF) 50 MCG/ML 2 ML AMP ONE; lisinopriL 20 MG TAB PO SCH
[2020-02-29 06:36] VITALS: TEMP 98.2
[2020-02-29] MEDS: MIDAZOLAM 2 MG/2 ML VIAL IVP ONE ×2 (07:20→08:18)
[2020-02-29 07:24] VITALS: RESP 16
[2020-02-29] MEDS: VERAPAMIL SYRINGE (5 MG/10 ML) INTRAARTER ONE ×2 (07:51→07:53)
[2020-02-29 08:27] LABS: O2 Sat Blood Gas 66.1 %
[2020-02-29 08:29] LABS: O2 Sat Blood Gas 93.5 %
[2020-02-29 08:31] LABS: O2 Sat Blood Gas 67.1 %
--- NOTE | 2020-02-29 10:45 | ECHOT ---
TRANSESOPHAGEAL ECHOCARDIOGRAM INDICATIONS FOR PROCEDURE: Evaluation of mitral valve and left ventricular systolic function. PROCEDURE DETAILS: After explaining the procedure to the patient, risks and complications, the blood pressure and heart rate, O2 saturation was monitored. The throat was sprayed with Cetacaine. She received 3 mg intravenous Versed, 50 mcg intravenous fentanyl. The probe was introduced in the esophagus without difficulty. Images were obtained. Following that, the probe was removed. There was no immediate complication. FINDINGS: Left atrial size is dilated. Right atrial size is dilated. Left ventricular size is dilated with severe global hypokinesis. The estimated ejection fraction 20%. The aortic valve revealed mild fibrocalcific change with aortic cusp with preserved opening. Mitral valve revealed thickening of the mitral valve leaflets. Tricuspid valve is normal, descending thoracic aorta appears to be normal. No pericardial effusion was noted. Contrast bubble study revealed no evidence of shunting across the interatrial septum. Doppler pulse wave and color Doppler obtained and revealed severe mitral regurgitation with moderate tricuspid regurgitation and mild aortic regurgitation. There was no shunting across the interatrial septum. CONCLUSION: 1. Biatrial enlargement. 2. Dilated left ventricle with severely impaired left ventricular systolic function. 3. Mild aortic sclerosis with mild aortic regurgitation. 4. Thickening of the mitral valve leaflets with severe mitral regurgitation. 5. Moderate tricuspid regurgitation. 6. No shunting across the interatrial septum. MMODL / IJN: [id number] /
--- NOTE | 2020-02-29 11:51 | CC ---
CARDIAC CATHETERIZATION REPORT INDICATIONS: Mrs. High is a 64-year-old female who presented with symptoms of CHF and evidence of cardiomyopathy and mitral regurgitation. In view of that, recommendations made regarding cardiac catheterization. The procedures, risks, and complication were discussed with the patient who is in full understanding and agreement. PROCEDURE DETAILS: Patient was brought to the trestle mainternance laborer in a fasting semi-sedated state. After receiving fentanyl and Benadryl and achieving moderate conscious sedated state, using Xylocaine anesthesia and Seldinger technique, a 6-Ugandan sheath was introduced in the right radial artery. Subsequently, the intravenous sheath in the basilic vein was exchanged to a 6-Ugandan sheath, right heart catheterization was performed using [place] catheter. Multiple pressure and samples were obtained. Cardiac output by thermodilution was calculated. Following that, selective right and left coronary angiography performed using 5-Ugandan 3.5 bend, right and left Juan C catheter. Multiple views of the coronary artery including hemiaxial views obtained. Following that, catheter and sheath were removed. Hemostasis was obtained with deployment of a TR band and compression of the right basilic vein. There was no immediate complication. Of note, the patient received 5000 units of intravenous heparin as well as intra-arterial verapamil. HEMODYNAMICS: Cardiac output by thermodilution of 12.4 L/minute and by Pawan of 6.9 L/minute. Pulmonary artery systolic pressure of 45 with a diastolic of 15 and a mean of 25 mmHg. Pulmonary capillary wedge pressure V-wave of 20-22 mmHg with a mean of 80 mmHg. Right ventricular systolic pressure of 42 with an end-diastolic of 8. Right atrial V-wave of 10 with a mean of 6 mmHg. CORONARIES: LEFT MAIN: This is a large-sized vessel bifurcating into the left circumflex, left anterior descending artery, left main coronary artery has no evidence of high-grade stenosis. LEFT ANTERIOR DESCENDING CORONARY ARTERY: This is a large-sized vessel reaching to the apex with a wraparound apex segment. The left anterior descending artery gives rise to 2 diagonal branches. The left and descending artery and its branches have no evidence of obstructive disease. LEFT CIRCUMFLEX: This is a nondominant vessel giving rise to a large obtuse marginal branch. The obtuse marginal branch has 20% to 30% plaque without any evidence of high- grade stenosis. RIGHT CORONARY ARTERY: This is a large dominant vessel bifurcating distally PDA and posterolateral segment branches. The right PDA reaches toward the inferoapical wall. The right coronary artery in mid segment has 20% plaque. The rest of the vessel has no high-grade stenosis. LEFT VENTRICULOGRAM: Was not performed. CONCLUSION: 1. Mild coronary arteries. 2. Mild pulmonary hypertension. RECOMMENDATION: In view of findings and anatomy, I have recommend continuing with aggressive medical treatment for her cardiomyopathy and re-evaluate her arrhythmia to see if further intervention will be needed. Those findings and recommendations were discussed with the patient and her family and they are in full understanding and agreement. Duration of procedure is 33 minutes. MMODL / IJN: [id number] /
[2020-02-29 14:30] VITALS: BP 102/56; PULSE 82
== END | disposition home or self-care (01) ==
LOC: CATHCVL 05:56
PROVIDERS: ATTEND Internal Medicine Interventional Cardiology
DX: I08.3 Combined rheumatic disorders of mitral, aortic and tricuspid valves (principal); I48.11 Longstanding persistent atrial fibrillation; I42.8 Other cardiomyopathies; I27.20 Pulmonary hypertension, unspecified; I11.0 Hypertensive heart disease with heart failure; I50.9 Heart failure, unspecified; Z98.890 Other specified postprocedural states; M19.90 Unspecified osteoarthritis, unspecified site; Z82.49 Family history of ischemic heart disease and other diseases of the circulatory system; Z87.891 Personal history of nicotine dependence; Z79.899 Other long term (current) drug therapy; Z88.1 Allergy status to other antibiotic agents; Z88.5 Allergy status to narcotic agent; Z88.2 Allergy status to sulfonamides
CPT/HCPCS: 93312; 93320; 93325; 93460; 85018; 82810; C1769; C1894; J2250; J2001; J3010; J1644; Q9967